=== PATIENT | male | born 1955 | race African-American/Black ===

== ENCOUNTER 2022-03-28 16:14 | Inpatient (IN) | payer MEDICAID ==
[2022-03-28] VITALS (7 sets, daily range): BP systolic 105–120; BP diastolic 57–75
[~2022-03-28] VITALS: Ht 167.6 cm; Wt 53.4 kg
--- NOTE | 2022-03-28 16:16 | PHYS DOC ---
Adult General [facility] HPI Patient is a 66 year old male who presents with weakness. Patient has end- stage renal disease and goes to dialysis on Monday and Fridays. He is referred to this ER today for evaluation of weakness. He had onset of bilateral lower extremity weakness after his last episode of dialysis on Monday, 3 days e arli. The left leg was worse than the right. He reports that he had been unable to walk normally. At baseline, can walk without assistive device in the rehab center where he is currently staying. Did not have chest pain or shortness of breath. No other complaints of weakness. No complaints of facial droop or slurred speech. No recent fever, chills, illness. Has not missed any dialysis. Review of Systems Review of Systems Constitutional: Denies fever or chills Eyes: Denies change in visual acuity, redness, or eye pain HENT: Denies nasal congestion or sore throat Respiratory: Denies cough or shortness of breath Cardiovascular: No additional information not addressed in HPI GI: Denies abdominal pain, nausea, vomiting, bloody stools or diarrhea : Denies dysuria or hematuria Musculoskeletal: Denies back pain or joint pain Integument: Denies rash or skin lesions Neurologic: as documented in HPI Endocrine: Denies polyuria All other systems were reviewed and found to be within normal limits, except as documented in this note. Allergies Allergies Allergies Coded Allergies Type Severity Reaction Last Updated Verified chlorpromazine Adverse Reaction Intermediate dizziness, n/v 03/28/22 Yes Physical Exam Physical Exam Constitutional: thin, chronically ill-appearing male in no acute distress, non- toxic appearance HENT: bilateral external ears normal, oropharynx moist, no oral exudates, nose normal Eyes: PERRLA, EOMI, conjunctiva normal, no discharge. Neck: Normal range of motion, no tenderness, supple, no JVD Cardiovascular:Heart rate regular rhythm Lungs & Thorax: Bilateral breath sounds clear to auscultation Abdomen: Bowel sounds normal, soft, no tenderness Skin: Warm, dry, no erythema, no rash Back: Normal ROM Extremities: No tenderness, no cyanosis, no clubbing, ROM intact, no edema, fistula in right upper ext with good bruit and thrill Neurologic: Alert and oriented X 3, normal motor function, normal sensory function, no focal deficits noted, 5/5 motor strength globally. He is very strong in the bilateral lower extremities bilaterally and the right is very subtly stronger compared to the left. Otherwise, normal neurologic examination. Psychologic: Affect normal, judgement normal, mood normal EKG EKG 16:25: NSR. Rate is 83. No STEMI Radiology/Procedures Radiology/Procedures Seen and examined on arrival to his room. Overall has normal neurologic examination. He does report however weakness on the left compared to the right which has affected his ability to ambulate over the last couple of days. His symptoms are subacute and have been present for 3 to 4 days. No other complaints today. Basic labs are ordered and CT scan of the head Course & Med Decision Making Course & Med Decision Making Pertinent Labs and Imaging studies reviewed. (See chart for details) [] Dragon Disclaimer Dragon Disclaimer This electronic medical record was generated, in whole or in part, using a voice recognition dictation system. LIAN LEON DO March 28, 2022 16:16
[2022-03-28 16:56] LABS: BASO # 0.1 x10^3/uL (0.0-0.2); BASO % 1 % (0-3); EOS % 1 % (0-3); HEMATOCRIT 32.9 % (39.0-53.0); HEMOGLOBIN 11.1 g/dL (13.0-17.5); LYMPH # 0.7 x10^3/uL (1.0-4.8); LYMPH % 8 % (24-48); MEAN CORPUSCULAR HEMOGLOBIN 29 pg (25-35); MEAN CORPUSCULAR HGB CONC 34 g/dL (31-37); MEAN CORPUSCULAR VOLUME 86 fL (79-100); MONO # 0.8 x10^3/uL (0.0-1.1); MONO % 8 % (0-9); NEUT % 83 % (31-73); PLATELET COUNT 250 x10^3/uL (140-400); RED BLOOD COUNT 3.81 x10^6/uL (4.30-5.70); RED CELL DISTRIBUTION WIDTH 13.2 % (11.5-14.5); WHITE BLOOD COUNT 9.6 x10^3/uL (4.0-11.0)
--- NOTE | 2022-03-28 17:13 | RAD ---
CT head without contrast: Reason for examination: Left-sided weakness. Helical images were obtained through the brain with no contrast administered. Reconstruction was perf ormed in sagittal and coronal planes. Exposure: One or more of the following individualized dose reduction techniques were utilized for thi s examination: 1. Automated exposure control 2. Adjustment of the mA and/or kV according to patient size 3. Use of iterative reconstruction technique. Ventricular systems are asymmetric at the right lateral ventricle appearing to be larger than the lef t. There is a shift of midline to the left of approximately 6 mm. There are bilateral subdural hematomas, acute on chronic, right greater than left with the right subd ural hematoma measuring 2.3 cm in greatest thickness and the left subdural hematoma measuring approxi mately 7.6 mm in greatest thickness. No acute infarcts, masses or intraparenchymal hemorrhage are evident. No abnormalities of seen at the orbits. The paranasal sinuses and mastoid air cells are clear. No acute abnormality seen in the skull. IMPRESSION: Acute on chronic subdural hematomas bilaterally with the right subdural hematoma measuring 2.3 cm in greatest thickness and the left subdural hematoma measuring 7.6 mm in greatest thickness. 6 mm shift of midline to the left. FOR INTERNAL CODING PURPOSES Critical result: Findings discussed with LIAN LEON DO at 03/28/2022 5:04 PM. RESULT CODE: (C) Electronically signed by: Yeimi Alcala MD (03/28/2022 5:10 PM) [facility]
[2022-03-28 17:15] LABS: CALCIUM 9.2 mg/dL (8.5-10.1); CREATININE 6.5 mg/dL (0.7-1.3); POTASSIUM 4.6 mmol/L (3.5-5.1)
[2022-03-28 17:20] LABS: MAGNESIUM 2.6 mg/dL (1.8-2.4); PHOSPHORUS 3.4 mg/dL (2.6-4.7)
[2022-03-28] MEDS ORDERED: levETIRAcetam 1,000mg PREMIX 100 ML IV ONE (17:30)
[2022-03-28 17:36] LABS: GFR 10.4
[2022-03-28] MEDS ORDERED: ONDANSETRON PF 4 MG/2 ML VIAL. IVP PRN (18:00)
[2022-03-28 18:51] LABS: PROTHROMBIN TIME PATIENT 13.5 SEC (11.7-14.0)
[2022-03-28] MEDS ORDERED: ALBU0.63 NEB (20:16)
[2022-03-28] MEDS ORDERED: OXYC5CAP PO (20:16)
[2022-03-28] MEDS ORDERED: IPRA4AER IH (20:16)
[2022-03-28] MEDS ORDERED: POLY17PO29 PO (20:16)
--- NOTE | 2022-03-28 20:32 | HP ---
DATE OF SERVICE: 03/28/2022 ADMIT DATE: 03/28/2022 CHIEF COMPLAINT: Weakness. HISTORY OF PRESENT ILLNESS: The patient is a pleasant 66-year-old male who presents to the ER with weakness. He is on dialysis Monday, Monday and Monday. He denies any recent history of falling. However, we did a CAT scan, it showing a subdural hematoma. I discussed the case with ER physician. We are going to admit the patient and consult Dr. Rizvi. PAST MEDICAL HISTORY: End-stage renal disease, on dialysis. ALLERGIES: CHLORPROMAZINE. FAMILY HISTORY: Diabetes. SOCIAL HISTORY: He does not drink, smoke or take drugs. He is retired. He is on disability. MEDICATIONS: Reviewed, please refer to the [facility]AD. REVIEW OF SYSTEMS: GENERAL: He complains of weakness. SKIN: No bruising, hair changes or rashes. EYES: No blurred, double or loss of vision. NOSE AND THROAT: No history of nosebleeds, hoarseness or sore throat. HEART: No history of palpitations, chest pain or shortness of breath on exertion. LUNGS: Denies cough, hemoptysis, wheezing or shortness of breath. GASTROINTESTINAL: Denies changes in appetite, nausea, vomiting, diarrhea or constipation. GENITOURINARY: No history of frequency, urgency, hesitancy or nocturia. NEUROLOGIC: He complains of weakness. PSYCHIATRIC: No history of panic, anxiety or depression. ENDOCRINE: No history of heat or cold intolerance, polyuria or polydipsia. EXTREMITIES: Denies muscle weakness, joint pain, pain on walking or stiffness. PHYSICAL EXAMINATION: VITALS: Within normal limits and are stable. GENERAL: No apparent distress. Alert and oriented. HEENT: Normal cephalic atraumatic, external auditory canals are patent. EYES: Extraocular muscles are intact, pupils are equally round and reactive to light and accommodation. MUSCULOSKELETAL: Well developed, well nourished, good range of motion. ENDOCRINE: No thyromegaly was palpated. LYMPHATICS: No cervical chain or axillary nodes were noted. HEMATOPOIETIC: No bruising. NECK: Supple, no JVD, no thyromegaly was noted. LUNGS: Clear to auscultation in all lung owusu without rhonchi or wheezing. HEART: RRR, S1, S2 present. Peripheral pulses intact, no obvious murmurs were noted. ABDOMEN: Soft, nontender. Positive bowel sounds no organomegaly, normal bowel sounds. EXTREMITIES: Without any cyanosis, clubbing, or edema. Pedal pulses intact, Homans sign is negative. NEUROLOGIC: Normal speech, normal tone. A and O x 3, moves all extremities, no obvious focal deficits. PSYCHIATRIC: Normal affect, normal mood. Stable. SKIN: No ulcerations or rashes, good skin turgor, no jaundice. VASCULAR: Good capillary refill, neurovascular bundle appears to be intact. IMAGING DATA: CT of the head shows a 2.3 cm subdural hematoma. LABORATORY DATA: His hemoglobin 11.1. ASSESSMENT AND PLAN: Subdural hematoma. The patient will be admitted to the ICU. N.p.o. after midnight. Consult Neurosurgery. Home meds. Deep venous thrombosis prophylaxis. Full code. YAKOV DR: Mariza TID: [id number]
[2022-03-29] VITALS (23 sets, daily range): BP systolic 100–131; BP diastolic 54–77
[2022-03-29 05:34] LABS: BASO % 1 % (0-3); EOS # 0.1 x10^3/uL (0.0-0.7); EOS % 1 % (0-3); HEMATOCRIT 30.5 % (39.0-53.0); HEMOGLOBIN 9.8 g/dL (13.0-17.5); LYMPH # 0.9 x10^3/uL (1.0-4.8); LYMPH % 10 % (24-48); MEAN CORPUSCULAR HEMOGLOBIN 28 pg (25-35); MEAN CORPUSCULAR HGB CONC 32 g/dL (31-37); MEAN CORPUSCULAR VOLUME 87 fL (79-100); MONO # 0.8 x10^3/uL (0.0-1.1); MONO % 8 % (0-9); NEUT # 7.4 x10^3/uL (1.8-7.7); NEUT % 80 % (31-73); PLATELET COUNT 246 x10^3/uL (140-400); RED BLOOD COUNT 3.53 x10^6/uL (4.30-5.70); RED CELL DISTRIBUTION WIDTH 13.4 % (11.5-14.5); WHITE BLOOD COUNT 9.2 x10^3/uL (4.0-11.0)
[2022-03-29 05:47] LABS: CALCIUM 9.3 mg/dL (8.5-10.1); CREATININE 8.2 mg/dL (0.7-1.3); GFR 7.9; POTASSIUM 4.7 mmol/L (3.5-5.1)
--- NOTE | 2022-03-29 08:47 | PDOC2 ---
NEUROLOGY CONSULT Date of Service DOS: DATE: 03/29/22 TIME: 08:42 Reason for Consult Reason for Consult: Subdural hematomas Referring Physician Referring Physician: Dr. Covarrubias Source Source: Chart review, Patient History of Present Illness History of Present Illness The patient is a 66-year-old right-handed male who came to the emergency department yesterday with bilateral weakness of the legs, worse on the left. He has been using a walker for a couple weeks. He has been in the longterm for over 20 years due to schizophrenia. He denies any head injuries, strokes, seizures, or recent falls. CT of the head shows bilateral subdural hematomas as reviewed below. Past Medical History Cardiovascular: HTN Pulmonary: Asthma Psych: Anxiety, Depression, Schizophrenia Renal/: Chronic renal failure (Dialysis) Past Surgical History Past Surgical History: No pertinent history Family History Family History: Cancer Social History Social History Single, disabled, longterm resident, smokes cigarettes, no alcohol or street drugs Current Medications Current Medications Current Medications Levetiracetam 100 ml @ 400 mls/hr 1X ONCE IV Last administered on 03/28/22at 17:47; Start 03/28/22 at 17:30; Stop 03/28/22 at 17:44; Status DC Ondansetron HCl (Zofran) 4 mg PRN Q8HRS PRN IVP NAUSEA/VOMITING; Start 03/28/22 at 18:00; Stop 03/29/22 at 17:59 Active Scripts Active Reported Oxycodone Hcl 5 Mg Capsule 5 Mg PO PRN Q6HRS PRN Miralax (Polyethylene Glycol 3350) 17 Gm Powd.pack 1 Packet PO DAILY 2 Days dissolve in water Combivent Respimat Inhal (Ipratropium/Albuterol Sulfate) 4 Gm Aer.w.adap 2 Inh IH QID Albuterol Sulfate Neb Soln (Albuterol Sulfate) 0.63 Mg/3 Ml Vial.neb 1 Vial NEB TID Allergies Allergies: Coded Allergies: chlorpromazine (Verified Adverse Reaction, Intermediate, dizziness, n/v, 03/28/22) ROS Review of System Negative for fever, chills, weight loss, chest pain, indigestion, hematochezia, melena, and dysuria. Positive for dyspnea occasionally. Full 14-point review of systems is negative. Physical Exam Physical Examination General: Well-developed, well-nourished black male in no acute distress HEENT: Normocephalic andatraumatic. Temporal arteriespulsatile and nontender. Neck: Supple without bruit, no meningismus Musculoskeletal: Stability:see neurologic. Gait exam:see neurologic. Tone:see neurologic.Strength:see neurologic. Neurological: Mental Status:intact, orientation, memory, attention span/concentration, language, fund of knowledge normal. Cranial Nerves:Pupils equal and reactive to light, extraocular movements areintact, visual owusu are full to confrontat ion. Facial sensation is normal. There is no facial asymmetry. Vestibulo-ocular reflex is intact. Palate elevates and tongue protrudes in midline. All other cranial related problems are negative except as mentioned before.Reflexes:0+ and symmetric with flexor plantar responses. Motor:4/5 arms, 3/5 legs, with normal tone and bulk. Coordination:Finger-nose finger and sgbe-xj-wyox testing are normal. Rapid alternating movements and fine finger movements are intact. Gait:Not tested. Sensory:Stocking loss. Vitals VITALS Vital Signs Date Time Temp Pulse Resp B/P (MAP) Pulse Ox O2 Delivery O2 Flow Rate FiO2 03/29/22 07:00 75 20 101/76 (84) 100 Nasal Cannula 3.0 03/29/22 04:00 99.4 99.4 Labs Labs Laboratory Tests Test 03/28/22 16:40 03/29/22 05:20 White Blood Count 9.6 x10^3/uL (4.0-11.0) 9.2 x10^3/uL (4.0-11.0) Red Blood Count 3.81 x10^6/uL (4.30-5.70) 3.53 x10^6/uL (4.30-5.70) Hemoglobin 11.1 g/dL (13.0-17.5) 9.8 g/dL (13.0-17.5) Hematocrit 32.9 % (39.0-53.0) 30.5 % (39.0-53.0) Mean Corpuscular Volume 86 fL (79-100) 87 fL (79-100) Mean Corpuscular Hemoglobin 29 pg (25-35) 28 pg (25-35) Mean Corpuscular Hemoglobin Concent 34 g/dL (31-37) 32 g/dL (31-37) Red Cell Distribution Width 13.2 % (11.5-14.5) 13.4 % (11.5-14.5) Platelet Count 250 x10^3/uL (140-400) 246 x10^3/uL (140-400) Neutrophils (%) (Auto) 83 % (31-73) 80 % (31-73) Lymphocytes (%) (Auto) 8 % (24-48) 10 % (24-48) Monocytes (%) (Auto) 8 % (0-9) 8 % (0-9) Eosinophils (%) (Auto) 1 % (0-3) 1 % (0-3) Basophils (%) (Auto) 1 % (0-3) 1 % (0-3) Neutrophils # (Auto) 8.0 x10^3/uL (1.8-7.7) 7.4 x10^3/uL (1.8-7.7) Lymphocytes # (Auto) 0.7 x10^3/uL (1.0-4.8) 0.9 x10^3/uL (1.0-4.8) Monocytes # (Auto) 0.8 x10^3/uL (0.0-1.1) 0.8 x10^3/uL (0.0-1.1) Eosinophils # (Auto) 0.0 x10^3/uL (0.0-0.7) 0.1 x10^3/uL (0.0-0.7) Basophils # (Auto) 0.1 x10^3/uL (0.0-0.2) 0.0 x10^3/uL (0.0-0.2) Prothrombin Time 13.5 SEC (11.7-14.0) Prothromb Time International Ratio 1.1 (0.8-1.1) Activated Partial Thromboplast Time 42 SEC (24-38) Sodium Level 137 mmol/L (136-145) 137 mmol/L (136-145) Potassium Level 4.6 mmol/L (3.5-5.1) 4.7 mmol/L (3.5-5.1) Chloride Level 90 mmol/L (98-107) 91 mmol/L (98-107) Carbon Dioxide Level 38 mmol/L (21-32) 38 mmol/L (21-32) Anion Gap 9 (6-14) 8 (6-14) Blood Urea Nitrogen 27 mg/dL (8-26) 33 mg/dL (8-26) Creatinine 6.5 mg/dL (0.7-1.3) 8.2 mg/dL (0.7-1.3) Estimated GFR (Cockcroft-Gault) 10.4 7.9 Glucose Level 91 mg/dL (70-99) 87 mg/dL (70-99) Calcium Level 9.2 mg/dL (8.5-10.1) 9.3 mg/dL (8.5-10.1) Phosphorus Level 3.4 mg/dL (2.6-4.7) Magnesium Level 2.6 mg/dL (1.8-2.4) Troponin I High Sensitivity 19 ng/L (4-75) Laboratory Tests Test 03/28/22 16:40 03/29/22 05:20 White Blood Count 9.6 x10^3/uL (4.0-11.0) 9.2 x10^3/uL (4.0-11.0) Red Blood Count 3.81 x10^6/uL (4.30-5.70) 3.53 x10^6/uL (4.30-5.70) Hemoglobin 11.1 g/dL (13.0-17.5) 9.8 g/dL (13.0-17.5) Hematocrit 32.9 % (39.0-53.0) 30.5 % (39.0-53.0) Mean Corpuscular Volume 86 fL (79-100) 87 fL (79-100) Mean Corpuscular Hemoglobin 29 pg (25-35) 28 pg (25-35) Mean Corpuscular Hemoglobin Concent 34 g/dL (31-37) 32 g/dL (31-37) Red Cell Distribution Width 13.2 % (11.5-14.5) 13.4 % (11.5-14.5) Platelet Count 250 x10^3/uL (140-400) 246 x10^3/uL (140-400) Neutrophils (%) (Auto) 83 % (31-73) 80 % (31-73) Lymphocytes (%) (Auto) 8 % (24-48) 10 % (24-48) Monocytes (%) (Auto) 8 % (0-9) 8 % (0-9) Eosinophils (%) (Auto) 1 % (0-3) 1 % (0-3) Basophils (%) (Auto) 1 % (0-3) 1 % (0-3) Neutrophils # (Auto) 8.0 x10^3/uL (1.8-7.7) 7.4 x10^3/uL (1.8-7.7) Lymphocytes # (Auto) 0.7 x10^3/uL (1.0-4.8) 0.9 x10^3/uL (1.0-4.8) Monocytes # (Auto) 0.8 x10^3/uL (0.0-1.1) 0.8 x10^3/uL (0.0-1.1) Eosinophils # (Auto) 0.0 x10^3/uL (0.0-0.7) 0.1 x10^3/uL (0.0-0.7) Basophils # (Auto) 0.1 x10^3/uL (0.0-0.2) 0.0 x10^3/uL (0.0-0.2) Prothrombin Time 13.5 SEC (11.7-14.0) Prothromb Time International Ratio 1.1 (0.8-1.1) Activated Partial Thromboplast Time 42 SEC (24-38) Sodium Level 137 mmol/L (136-145) 137 mmol/L (136-145) Potassium Level 4.6 mmol/L (3.5-5.1) 4.7 mmol/L (3.5-5.1) Chloride Level 90 mmol/L (98-107) 91 mmol/L (98-107) Carbon Dioxide Level 38 mmol/L (21-32) 38 mmol/L (21-32) Anion Gap 9 (6-14) 8 (6-14) Blood Urea Nitrogen 27 mg/dL (8-26) 33 mg/dL (8-26) Creatinine 6.5 mg/dL (0.7-1.3) 8.2 mg/dL (0.7-1.3) Estimated GFR (Cockcroft-Gault) 10.4 7.9 Glucose Level 91 mg/dL (70-99) 87 mg/dL (70-99) Calcium Level 9.2 mg/dL (8.5-10.1) 9.3 mg/dL (8.5-10.1) Phosphorus Level 3.4 mg/dL (2.6-4.7) Magnesium Level 2.6 mg/dL (1.8-2.4) Troponin I High Sensitivity 19 ng/L (4-75) Images Images CT head without contrast: Reason for examination: Left-sided weakness. Helical images were obtained through the brain with no contrast administered. Reconstruction was performed in sagittal and coronal planes. Exposure: One or more of the following individualized dose reduction techniques were utilized for this examination: 1. Automated exposure control 2. Adjustment of the mA and/or kV according to patient size 3. Use of iterative reconstruction technique. Ventricular systems are asymmetric at the right lateral ventricle appearing to be larger than the left. There is a shift of midline to the left of approximately 6 mm. There are bilateral subdural hematomas, acute on chronic, right greater than left with the right subdural hematoma measuring 2.3 cm in greatest thickness and the left subdural hematoma measuring approximately 7.6 mm in greatest thickness. No acute infarcts, masses or intraparenchymal hemorrhage are evident. No abnormalities of seen at the orbits. The paranasal sinuses and mastoid air cells are clear. No acute abnormality seen in the skull. IMPRESSION: Acute on chronic subdural hematomas bilaterally with the right subdural hematoma measuring 2.3 cm in greatest thickness and the left subdural hematoma measuring 7.6 mm in greatest thickness. 6 mm shift of midline to the left. Assessment/Plan Assessment/Plan Impression: Bilateral subdural hematomas, chronic and acute, no obvious trauma, patient is not on anticoagulation. Exam points to peripheral neuropathy, need to rule out diabetes, connective tissue disease, thyroid abnormalities, vitamin deficiencies, dysproteinemias. Recommendations: Repeat head CT Does not need prophylactic anticonvulsants Rehabilitation modalities Laboratory studies for various causes of neuropathy Okay to move to floor if head CT is negative Neurosurgery is also on the case. Thank you for letting me help with the patient's care. PRIYANK FONTENOT MD March 29, 2022 08:47
--- NOTE | 2022-03-29 11:00 | PDOC ---
[facility] PROGRESS NOTE Date of Service DOS: DATE: 03/29/22 TIME: 10:59 Chief Complaint Chief Complaint Subdural hematoma ESRD on dialysis Asthma Arthritis History of Present Illness History of Present Illness 03/29/2022 Patient seen and examined in the ICU He is eating breakfast Discussed with case management Discussed with RN Chart reviewed Awaiting further neurosurgical input Vitals/I&O Vitals/I&O: Vital Signs Date Time Temp Pulse Resp B/P (MAP) Pulse Ox O2 Delivery O2 Flow Rate FiO2 03/29/22 10:00 74 18 101/64 (76) 99 Nasal Cannula 3.0 03/29/22 08:00 98.7 98.7 I & O 03/28/22 03/28/22 03/29/22 15:00 23:00 07:00 Intake Total 350 ml Output Total 0 ml 0 ml Balance 350 ml 0 ml Physical Exam General: Alert Heart: Regular rate Lungs: Clear Abdomen: Normal bowel sounds Extremities: No clubbing Skin: No rashes Labs Labs: Laboratory Tests Test 03/28/22 16:40 03/29/22 05:20 03/29/22 05:54 White Blood Count 9.6 x10^3/uL (4.0-11.0) 9.2 x10^3/uL (4.0-11.0) Red Blood Count 3.81 x10^6/uL (4.30-5.70) 3.53 x10^6/uL (4.30-5.70) Hemoglobin 11.1 g/dL (13.0-17.5) 9.8 g/dL (13.0-17.5) Hematocrit 32.9 % (39.0-53.0) 30.5 % (39.0-53.0) Mean Corpuscular Volume 86 fL (79-100) 87 fL (79-100) Mean Corpuscular Hemoglobin 29 pg (25-35) 28 pg (25-35) Mean Corpuscular Hemoglobin Concent 34 g/dL (31-37) 32 g/dL (31-37) Red Cell Distribution Width 13.2 % (11.5-14.5) 13.4 % (11.5-14.5) Platelet Count 250 x10^3/uL (140-400) 246 x10^3/uL (140-400) Neutrophils (%) (Auto) 83 % (31-73) 80 % (31-73) Lymphocytes (%) (Auto) 8 % (24-48) 10 % (24-48) Monocytes (%) (Auto) 8 % (0-9) 8 % (0-9) Eosinophils (%) (Auto) 1 % (0-3) 1 % (0-3) Basophils (%) (Auto) 1 % (0-3) 1 % (0-3) Neutrophils # (Auto) 8.0 x10^3/uL (1.8-7.7) 7.4 x10^3/uL (1.8-7.7) Lymphocytes # (Auto) 0.7 x10^3/uL (1.0-4.8) 0.9 x10^3/uL (1.0-4.8) Monocytes # (Auto) 0.8 x10^3/uL (0.0-1.1) 0.8 x10^3/uL (0.0-1.1) Eosinophils # (Auto) 0.0 x10^3/uL (0.0-0.7) 0.1 x10^3/uL (0.0-0.7) Basophils # (Auto) 0.1 x10^3/uL (0.0-0.2) 0.0 x10^3/uL (0.0-0.2) Prothrombin Time 13.5 SEC (11.7-14.0) Prothromb Time International Ratio 1.1 (0.8-1.1) Activated Partial Thromboplast Time 42 SEC (24-38) Sodium Level 137 mmol/L (136-145) 137 mmol/L (136-145) Potassium Level 4.6 mmol/L (3.5-5.1) 4.7 mmol/L (3.5-5.1) Chloride Level 90 mmol/L (98-107) 91 mmol/L (98-107) Carbon Dioxide Level 38 mmol/L (21-32) 38 mmol/L (21-32) Anion Gap 9 (6-14) 8 (6-14) Blood Urea Nitrogen 27 mg/dL (8-26) 33 mg/dL (8-26) Creatinine 6.5 mg/dL (0.7-1.3) 8.2 mg/dL (0.7-1.3) Estimated GFR (Cockcroft-Gault) 10.4 7.9 Glucose Level 91 mg/dL (70-99) 87 mg/dL (70-99) Calcium Level 9.2 mg/dL (8.5-10.1) 9.3 mg/dL (8.5-10.1) Phosphorus Level 3.4 mg/dL (2.6-4.7) Magnesium Level 2.6 mg/dL (1.8-2.4) Troponin I High Sensitivity 19 ng/L (4-75) Vitamin B12 Level 794 pg/mL (247-911) Thyroid Stimulating Hormone (TSH) 0.882 uIU/mL (0.358-3.74) Erythrocyte Sedimentation Rate 75 (0-15) Assessment and Plan Assessmemt and Plan Problems Medical Problems: (1) Subdural hematoma Status: Acute Subdural hematoma ESRD on dialysis Asthma Arthritis Plan ICU monitoring Await further neurosurgical input Trend labs Home meds DVT prophylaxis Full code PT OT Comment Review of Relevant I have reviewed the following items arcelia (where applicable) has been applied. Medications: Current Medications Medications (Trade) Dose Ordered Sig/Cherelle Route PRN Reason Start Time Stop Time Status Last Admin Dose Admin Levetiracetam 100 ml @ 400 mls/hr 1X ONCE IV 03/28/22 17:30 03/28/22 17:44 DC 03/28/22 17:47 Justifications for Admission Other Justification ARIEL BARRERA III DO March 29, 2022 11:00
--- NOTE | 2022-03-29 12:02 | PDOC ---
Provider Note Date of Service: DATE: 03/29/22 TIME: 12:01 Provider Note Patient seen and examined, family at bedside The patient is a 66-year-old right-handed male who came to the emergency department yesterday with bilateral weakness of the legs, worse on the left. He has been using a walker for a couple weeks. He has been in the senior care for over 20 years due to schizophrenia. He denies any head injuries, strokes, seizures, or recent falls. CT of the head shows bilateral subdural hematomas. PMH: HTN, Asthma, Anxiety, Depression, Schizophrenia, Chronic renal failure (Di alysis) Exam: Mental Status:Alert and oriented x 3, Pupils equal and reactive to light, extraocular movements areintact, visual owusu are full to confrontation. Facial sensation is normal. There is no facial asymmetry. All other cranial related problems are negative except as mentioned before. Strength 4/5 arms, 3/5 legs, with normal tone and bulk. Coordination:Finger-nose finger and oxjk-sr-qiwl testing are normal. Rapid alternating movements and fine finger movements are intact. Gait:Not tested. Sensory:Stocking loss. CT head with Acute on chronic subdural hematomas bilaterally with the right subdural hematoma measuring 2.3 cm in greatest thickness and the left subdural hematoma measuring 7.6 mm in greatest thickness.6 mm shift of midline to the lef t. Plan for evacuation of [facility] right tomorrow 1130 SCDs D/W RN Justifications for Admission Other Justification RAFAEL MAHONEY MD March 29, 2022 12:02
--- NOTE | 2022-03-29 16:32 | RAD ---
Exam: CT head INDICATION: Subdural hemorrhage TECHNIQUE: Sequential axial images through the head were obtained without the administration of IV co ntrast. Exposure: One or more of the following in the visualized dose reduction techniques were utilized for this examination: 1. Automated exposure control 2. Adjustment of the MA and/or KV according to patient size 3. Use of iterative of reconstructive technique Comparisons: 03/28/2022 FINDINGS: Bilateral subdural hematomas are again seen which have a similar size of induration compared to the p rior study. Hemorrhage is larger on the right measuring approximately 1.8 cm in thickness and measure s approximately 1.3 cm in thickness on the left. There is underlying sulcal effacement similar to stuart or study. There is persistent midline shift to the left measuring approximately 7 mm. Mild patchy hypodensity in the periventricular white matter, similar prior study. No acute vascular t erritory infarction is identified. Frost-white distinction is preserved. Stable appearance of the ventricular system. The basal cisterns are well maintained. The visualized portions of the paranasal sinuses and mastoid air cells are well-pneumatized. No acute fractures. IMPRESSION: Stable appearance of bilateral subdural hematomas with underlying mass effect as described above. Electronically signed by: Kiran Alfaro MD (03/29/2022 4:29 PM) [facility]
--- NOTE | 2022-03-29 19:09 | EKG ---
[address] [place] [address] Test Date: 2022-03-28 Test Time: 16:22:25 Pat Name: SIA MONCADA Department: Room: [facility] 1 Gender: M Rn Cardiac: : 1955 Requested By: LIAN LEON Order Number: [id number] Reading MD: Kevin Mcintyre MD Measurements Intervals [place] Rate: 83 P: 69 RI: 152 QRS: -69 QRSD: 86 T: 49 QT: 372 QTc: 438 Interpretive Statements SINUS RHYTHM LAD Electronically Signed On 04-04-2022 9:30:55 CDT by Kevin Mcintyre MD
[2022-03-29] MEDS ORDERED: ACETAMINOPHEN 325 MG TABLET. PO PRN (19:30)
--- NOTE | 2022-03-29 21:07 | NUR ---
notified and orders received for increased temp.
[2022-03-30] VITALS (21 sets, daily range): BP systolic 88–129; BP diastolic 44–72
[2022-03-30 01:27] LABS: HEMOGLOBIN A1C 5.1 % (4.8-5.6)
[2022-03-30] MEDS ORDERED: ceFAZolin SODIUM 1 GM in IV NORMAL SALINE 1000ML BAG 1,000 ML IRR ONE (06:00)
[2022-03-30] MEDS ORDERED: HYDROmorphone 2 MG/ML INJ. IVP PRN (06:00)
[2022-03-30] MEDS ORDERED: MORPHINE SULFATE 2 MG/ML INJ. IVP PRN (06:00)
[2022-03-30] MEDS ORDERED: fentaNYL PF VIAL 100 MCG/2 ML VIAL IVP PRN (06:00)
[2022-03-30] MEDS ORDERED: PROCHLORPERAZINE 10 MG/2 ML VIAL. IVP PRN (06:00)
[2022-03-30] MEDS ORDERED: IV RINGERS,LACTATED 1000ML 1,000 ML IV SCH (06:00)
[2022-03-30] MEDS ORDERED: BUPIVACAINE-EPI 0.5% 30 ML VIAL KIT. ONE (07:41)
[2022-03-30] MEDS ORDERED: GELATIN SPONGE SIZE 100. ONE (07:41)
[2022-03-30] MEDS ORDERED: SURGICEL HEMOSTAT 4X8 EACH. ONE (07:41)
[2022-03-30] MEDS ORDERED: THROMBIN TOPICAL 20,000 UNIT SPRAY.SYRN KIT TP ONE ×2 (07:42→12:49)
[2022-03-30] MEDS ORDERED: cefTRIAXone IV Push 1 GM VIAL. IVP SCH (08:00)
--- NOTE | 2022-03-30 08:22 | PDOC ---
PROGRESS NOTES Date of Service DATE: 03/30/22 TIME: 08:19 Assessment Problems Medical Problems: (1) Subdural hematoma Status: Acute Fever last night, sedimentation rate 75 Bilateral subdural hematomas, chronic and acute, no obvious trauma, patient is not on anticoagulation. Stable on second head CT 03/29 Exam points to peripheral neuropathy, need to rule out diabetes, connective tissue disease, thyroid abnormalities, vitamin deficiencies, dysproteinemias. All labs except the sedimentation rate are normal so far Plan I ordered a chest x-ray and urinalysis Does not need prophylactic anticonvulsants Rehabilitation modalities Await rest of laboratory studies for various causes of neuropathy Neurosurgery plans for subdural evacuation Subjective No complaints Objective Vital Signs Date Time Temp Pulse Resp B/P (MAP) Pulse Ox O2 Delivery O2 Flow Rate FiO2 03/30/22 08:00 98.9 79 24 110/61 (77) 97 Nasal Cannula 3.0 98.9 Intake and Output 03/30/22 07:00 Intake Total 1050 ml Output Total 0 ml Balance 1050 ml Intake Oral 1050 ml Output Urine Total 0 ml PHYSICAL EXAM Alert. Oriented to time, place and person. PERRL. EOMI. CN: no focal findings. Muscle tone: normal. Muscle strength: 4/5 arms, 4/5 right leg, 3/5 left leg DTR: 0+ Plantar reflex: Flexor Gait: not examined in bed. Sensory exam: Stocking loss. No cerebellar signs elicited. Review of Relevant I have reviewed the following items arcelia (where applicable) has been applied. Labs Laboratory Tests Test 03/28/22 16:40 03/29/22 05:20 03/29/22 05:54 03/29/22 12:20 White Blood Count 9.6 x10^3/uL (4.0-11.0) 9.2 x10^3/uL (4.0-11.0) Red Blood Count 3.81 x10^6/uL (4.30-5.70) 3.53 x10^6/uL (4.30-5.70) Hemoglobin 11.1 g/dL (13.0-17.5) 9.8 g/dL (13.0-17.5) Hematocrit 32.9 % (39.0-53.0) 30.5 % (39.0-53.0) Mean Corpuscular Volume 86 fL (79-100) 87 fL (79-100) Mean Corpuscular Hemoglobin 29 pg (25-35) 28 pg (25-35) Mean Corpuscular Hemoglobin Concent 34 g/dL (31-37) 32 g/dL (31-37) Red Cell Distribution Width 13.2 % (11.5-14.5) 13.4 % (11.5-14.5) Platelet Count 250 x10^3/uL (140-400) 246 x10^3/uL (140-400) Neutrophils (%) (Auto) 83 % (31-73) 80 % (31-73) Lymphocytes (%) (Auto) 8 % (24-48) 10 % (24-48) Monocytes (%) (Auto) 8 % (0-9) 8 % (0-9) Eosinophils (%) (Auto) 1 % (0-3) 1 % (0-3) Basophils (%) (Auto) 1 % (0-3) 1 % (0-3) Neutrophils # (Auto) 8.0 x10^3/uL (1.8-7.7) 7.4 x10^3/uL (1.8-7.7) Lymphocytes # (Auto) 0.7 x10^3/uL (1.0-4.8) 0.9 x10^3/uL (1.0-4.8) Monocytes # (Auto) 0.8 x10^3/uL (0.0-1.1) 0.8 x10^3/uL (0.0-1.1) Eosinophils # (Auto) 0.0 x10^3/uL (0.0-0.7) 0.1 x10^3/uL (0.0-0.7) Basophils # (Auto) 0.1 x10^3/uL (0.0-0.2) 0.0 x10^3/uL (0.0-0.2) Prothrombin Time 13.5 SEC (11.7-14.0) Prothromb Time International Ratio 1.1 (0.8-1.1) Activated Partial Thromboplast Time 42 SEC (24-38) Sodium Level 137 mmol/L (136-145) 137 mmol/L (136-145) Potassium Level 4.6 mmol/L (3.5-5.1) 4.7 mmol/L (3.5-5.1) Chloride Level 90 mmol/L (98-107) 91 mmol/L (98-107) Carbon Dioxide Level 38 mmol/L (21-32) 38 mmol/L (21-32) Anion Gap 9 (6-14) 8 (6-14) Blood Urea Nitrogen 27 mg/dL (8-26) 33 mg/dL (8-26) Creatinine 6.5 mg/dL (0.7-1.3) 8.2 mg/dL (0.7-1.3) Estimated GFR (Cockcroft-Gault) 10.4 7.9 Glucose Level 91 mg/dL (70-99) 87 mg/dL (70-99) Calcium Level 9.2 mg/dL (8.5-10.1) 9.3 mg/dL (8.5-10.1) Phosphorus Level 3.4 mg/dL (2.6-4.7) Magnesium Level 2.6 mg/dL (1.8-2.4) Troponin I High Sensitivity 19 ng/L (4-75) Vitamin B12 Level 794 pg/mL (247-911) Thyroid Stimulating Hormone (TSH) 0.882 uIU/mL (0.358-3.74) Erythrocyte Sedimentation Rate 75 (0-15) Hemoglobin A1c 5.1 % (4.8-5.6) Coronavirus (COVID-19)(PCR) Not detected (NOT DETECTD) SARS-CoV-2 Antigen (Rapid) Negative (NEGATIVE) Laboratory Tests Test 03/29/22 12:20 Coronavirus (COVID-19)(PCR) Not detected (NOT DETECTD) SARS-CoV-2 Antigen (Rapid) Negative (NEGATIVE) Medications Current Medications Levetiracetam 100 ml @ 400 mls/hr 1X ONCE IV Last administered on 03/28/22at 17:47; Start 03/28/22 at 17:30; Stop 03/28/22 at 17:44; Status DC Ondansetron HCl (Zofran) 4 mg PRN Q8HRS PRN IVP NAUSEA/VOMITING; Start 03/28/22 at 18:00; Stop 03/29/22 at 17:59; Status DC Cefazolin Sodium 1 gm/Sodium Chloride 1,000 ml @ 1,000 mls/hr 1X ONCE IRR ; Start 03/30/22 at 06:00; Stop 03/30/22 at 06:59; Status DC Fentanyl Citrate (Fentanyl 2ml Vial) 25 mcg PRN Q5MIN PRN IVP MILD PAIN 1-3; Start 03/30/22 at 06:00; Stop 03/31/22 at 05:59 Fentanyl Citrate (Fentanyl 2ml Vial) 50 mcg PRN Q5MIN PRN IVP MODERATE PAIN 4- 6; Start 03/30/22 at 06:00; Stop 03/31/22 at 05:59 Morphine Sulfate (Morphine Sulfate) 1 mg PRN Q10MIN PRN IVP SEVERE PAIN 7-10; Start 03/30/22 at 06:00; Stop 03/31/22 at 05:59 Ringer's Solution 1,000 ml @ 30 mls/hr Q24H IV ; Start 03/30/22 at 06:00; Stop 03/30/22 at 17:59 Hydromorphone HCl (Dilaudid) 0.5 mg PRN Q10MIN PRN IVP SEVERE PAIN 7-10, 2nd CHOICE; Start 03/30/22 at 06:00; Stop 03/31/22 at 05:59 Prochlorperazine Edisylate (Compazine) 5 mg PACU PRN PRN IVP NAUSEA, MRX1; Start 03/30/22 at 06:00; Stop 03/31/22 at 05:59 Acetaminophen (Tylenol) 650 mg PRN Q6HRS PRN PO MILD PAIN / TEMP > 100.3'F Last administered on 03/29/22at 19:54; Start 03/29/22 at 19:30 Ceftriaxone Sodium (Rocephin) 1 gm Q24H IVP ; Start 03/30/22 at 08:00 Active Scripts Active Reported Oxycodone Hcl 5 Mg Capsule 5 Mg PO PRN Q6HRS PRN Miralax (Polyethylene Glycol 3350) 17 Gm Powd.pack 1 Packet PO DAILY 2 Days dissolve in water Combivent Respimat Inhal (Ipratropium/Albuterol Sulfate) 4 Gm Aer.w.adap 2 Inh IH QID Albuterol Sulfate Neb Soln (Albuterol Sulfate) 0.63 Mg/3 Ml Vial.neb 1 Vial NEB TID Vitals/I & O Vital Sign - Last 24 Hours 03/29/22 03/29/22 03/29/22 03/29/22 09:00 10:00 11:00 12:00 Temp 98.8 98.8 Pulse 68 74 74 78 Resp B/P (MAP) 101/54 (70) 101/64 (76) 102/56 (71) 110/63 (79) Pulse Ox 100 99 100 96 O2 Delivery Nasal Cannula Nasal Cannula Nasal Cannula Nasal Cannula O2 Flow Rate 3.0 3.0 3.0 3.0 03/29/22 03/29/22 03/29/22 03/29/22 12:00 13:00 15:00 16:00 Temp 98.9 98.9 Pulse 82 80 80 Resp B/P (MAP) 109/60 (76) 101/63 (76) 113/59 (77) Pulse Ox 96 96 96 O2 Delivery Nasal Cannula Nasal Cannula Nasal Cannula Nasal Cannula O2 Flow Rate 3.0 3.0 3.0 3.0 03/29/22 03/29/22 03/29/22 03/29/22 16:00 17:00 18:00 19:00 Temp 101.0 101.0 Pulse 88 82 90 Resp B/P (MAP) 123/65 (84) 113/62 (79) 114/65 (81) Pulse Ox 92 97 97 O2 Delivery Nasal Cannula Nasal Cannula Nasal Cannula Nasal Cannula O2 Flow Rate 3.0 3.0 3.0 3.0 03/29/22 03/29/22 03/29/22 03/29/22 19:00 20:00 20:00 21:00 Temp 101.0 101.0 Pulse 82 89 89 Resp B/P (MAP) 113/64 (80) 107/60 (76) 107/60 (76) Pulse Ox 97 97 97 O2 Delivery Nasal Cannula Nasal Cannula Nasal Cannula Nasal Cannula O2 Flow Rate 3.0 3.0 3.0 3.0 03/29/22 03/29/22 03/30/22 03/30/22 22:00 23:00 00:00 00:00 Temp 99.5 99.0 99.5 99.0 Pulse 76 87 85 Resp B/P (MAP) 102/58 (73) 100/58 (72) 109/62 (78) Pulse Ox 97 98 98 O2 Delivery Nasal Cannula Nasal Cannula Nasal Cannula Nasal Cannula O2 Flow Rate 3.0 3.0 3.0 3.0 03/30/22 03/30/22 03/30/22 03/30/22 01:00 02:00 03:00 04:00 Pulse 83 82 82 Resp 25 27 27 B/P (MAP) 117/72 (87) 116/62 (80) 126/70 (88) Pulse Ox 98 97 96 O2 Delivery Nasal Cannula Nasal Cannula Nasal Cannula Nasal Cannula O2 Flow Rate 3.0 3.0 3.0 3.0 03/30/22 03/30/22 03/30/22 03/30/22 04:00 05:00 06:00 07:00 Temp 99.2 99.2 Pulse 72 78 80 87 Resp 22 20 20 24 B/P (MAP) 100/58 (72) 106/62 (77) 102/58 (73) 88/58 (68) Pulse Ox 99 97 98 96 O2 Delivery Nasal Cannula Nasal Cannula Nasal Cannula Nasal Cannula O2 Flow Rate 3.0 3.0 3.0 3.0 03/30/22 03/30/22 08:00 08:00 Temp 98.9 98.9 Pulse 79 Resp 24 B/P (MAP) 110/61 (77) Pulse Ox 97 O2 Delivery Nasal Cannula Nasal Cannula O2 Flow Rate 3.0 3.0 Intake and Output 03/29/22 03/29/22 03/30/22 15:00 23:00 07:00 Intake Total 300 ml 750 ml 0 ml Output Total 0 ml 0 ml Balance 300 ml 750 ml [address] head INDICATION: Subdural hemorrhage TECHNIQUE: Sequential axial images through the head were obtained without the administration of IV contrast. Exposure: One or more of the following in the visualized dose reduction techniques were utilized for this examination: 1. Automated exposure control 2. Adjustment of the MA and/or KV according to patient size 3. Use of iterative of reconstructive technique Comparisons: 03/28/2022 FINDINGS: Bilateral subdural hematomas are again seen which have a similar size of induration compared to the prior study. Hemorrhage is larger on the right measuring approximately 1.8 cm in thickness and measures approximately 1.3 cm in thickness on the left. There is underlying sulcal effacement similar to prior study. There is persistent midline shift to the left measuring approximately 7 mm. Mild patchy hypodensity in the periventricular white matter, similar prior study . No acute vascular territory infarction is identified. Frost-white distinction is preserved. Stable appearance of the ventricular system. The basal cisterns are well maintained. The visualized portions of the paranasal sinuses and mastoid air cells are well- pneumatized. No acute fractures. IMPRESSION: Stable appearance of bilateral subdural hematomas with underlying mass effect as described above. Justicifation of Admission Dx: Justifications for Admission: Justification of Admission Dx: N/A PRIYANK FONTENOT MD March 30, 2022 08:22
--- NOTE | 2022-03-30 08:37 | PDOC ---
[facility] PROGRESS NOTE Date of Service DOS: DATE: 03/30/22 TIME: 08:35 Chief Complaint Chief Complaint Subdural hematoma ESRD on dialysis Asthma Arthritis History of Present Illness History of Present Illness 03/30/2022 Patient seen and examined in the ICU Discussed with RN He is scheduled to go to surgery today for craniotomy and for hematoma evacuation He had a low-grade temp of 101 I called the pharmacy and started empiric Rocephin Currently having some PVCs on the monitor Blood pressure a little low at 88/58 Chart reviewed 03/29/2022 Patient seen and examined in the ICU He is eating breakfast Discussed with case management Discussed with RN Chart reviewed Awaiting further neurosurgical input Vitals/I&O Vitals/I&O: Vital Signs Date Time Temp Pulse Resp B/P (MAP) Pulse Ox O2 Delivery O2 Flow Rate FiO2 03/30/22 08:00 98.9 79 24 110/61 (77) 97 Nasal Cannula 3.0 98.9 I & O 03/29/22 03/29/22 03/30/22 15:00 23:00 07:00 Intake Total 300 ml 750 ml 0 ml Output Total 0 ml 0 ml Balance 300 ml 750 ml 0 ml Physical Exam General: Alert Heart: Regular rate Lungs: Clear Abdomen: Normal bowel sounds Extremities: No clubbing Skin: No rashes Labs Labs: Laboratory Tests Test 03/29/22 12:20 Coronavirus (COVID-19)(PCR) Not detected (NOT DETECTD) SARS-CoV-2 Antigen (Rapid) Negative (NEGATIVE) Assessment and Plan Assessmemt and Plan Problems Medical Problems: (1) Subdural hematoma Status: Acute Subdural hematoma Fevers Hypotension Weakness ESRD on dialysis Asthma Arthritis Plan He is scheduled to go to surgery later today I ordered empiric IV Rocephin for his fever We will consult infectious disease for second opinion on the fever ICU monitoring Dialysis per nephrology Trend labs Home meds DVT prophylaxis Full code Appreciate nephrology and neurology input CC time 31-minute Comment Review of Relevant I have reviewed the following items arcelia (where applicable) has been applied. Medications: Current Medications Medications (Trade) Dose Ordered Sig/Cherelle Route PRN Reason Start Time Stop Time Status Last Admin Dose Admin Acetaminophen (Tylenol) 650 mg PRN Q6HRS PRN PO MILD PAIN / TEMP > 100.3'F 03/29/22 19:30 03/29/22 19:54 Justifications for Admission Other Justification ARIEL BARRERA III DO March 30, 2022 08:37
[2022-03-30] MEDS ORDERED: PROPOFOL 10 MG/ML (20ML) VIAL. IV ONE (08:48)
[2022-03-30] MEDS ORDERED: ROCURONIUM 50 MG/5 ML VIAL. ONE ×2 (08:48→10:57)
[2022-03-30] MEDS ORDERED: NEOSTIGMINE METHYLSULFATE 5 MG/5 ML SYRINGE. ONE (08:48)
[2022-03-30] MEDS ORDERED: SEVOFLURANE 61 TO 120 MINUTES. IH ONE (08:48)
[2022-03-30] MEDS ORDERED: GLYCOPYRROLATE 1 MG/5 ML VIAL. ONE (08:48)
[2022-03-30] MEDS ORDERED: ONDANSETRON PF 4 MG/2 ML VIAL. ONE (08:48)
[2022-03-30] MEDS ORDERED: LIDOCAINE 2% PF 5 ML VIAL. ONE (08:48)
[2022-03-30] MEDS ORDERED: fentaNYL PF VIAL 100 MCG/2 ML VIAL ONE ×3 (08:48→14:51)
[2022-03-30] MEDS ORDERED: DEXAMETHASONE SOD PHOS 4 MG/ML VIAL ONE (08:48)
[2022-03-30] MEDS ORDERED: PHENYLEPHRINE 10 MG/ML VIAL. ONE (08:54)
--- NOTE | 2022-03-30 08:58 | PDOC2 ---
CONSULT Date of Consult Date of Consult DATE: 03/30/22 TIME: 08:54 Reason for Consult Reason for Consult: ESRD Identification/Chief Complaint Chief Complaint Currently no complaints Source Source: Chart review History of Present Illness Reason for Visit: Patient is a 66 year old AA male who presents with weakness. He had onset of b ilateral lower extremity weakness after his last episode of dialysis on Monday of last week . The left leg was worse than the right. He reports that he had been unable to walk normally. At baseline, can walk without assistive device in the rehab center where he is currently staying. Did not have chest pain or shortness of breath. No other complaints of weakness. No complaints of facial droop or slurred speech. No recent fever, chills, illness. He has been on dialysis for 7 years @ [facility], didnt miss any treatments, last dialysis was on Monday . States makes small amount of Urine. No urinary complaints . Denies any Vol Overload, No significant Interdialytic weight gain per patient He is not sure if he is scheduled for craniotomy today, states he had fever last night . Per RN scheduled for Craniotomy at 11: 30 am today Past Medical History Cardiovascular: HTN Pulmonary: Asthma Psych: Anxiety, Depression, Schizophrenia Renal/: Chronic renal failure (Dialysis) Past Surgical History Past Surgical History: No pertinent history Current Problem List Problem List Problems Medical Problems: (1) Subdural hematoma Status: Acute Current Medications Current Medications Current Medications Levetiracetam 100 ml @ 400 mls/hr 1X ONCE IV Last administered on 03/28/22at 17:47; Start 03/28/22 at 17:30; Stop 03/28/22 at 17:44; Status DC Ondansetron HCl (Zofran) 4 mg PRN Q8HRS PRN IVP NAUSEA/VOMITING; Start 03/28/22 at 18:00; Stop 03/29/22 at 17:59; Status DC Cefazolin Sodium 1 gm/Sodium Chloride 1,000 ml @ 1,000 mls/hr 1X ONCE IRR ; Start 03/30/22 at 06:00; Stop 03/30/22 at 06:59; Status DC Fentanyl Citrate (Fentanyl 2ml Vial) 25 mcg PRN Q5MIN PRN IVP MILD PAIN 1-3; Start 03/30/22 at 06:00; Stop 03/31/22 at 05:59 Fentanyl Citrate (Fentanyl 2ml Vial) 50 mcg PRN Q5MIN PRN IVP MODERATE PAIN 4- 6; Start 03/30/22 at 06:00; Stop 03/31/22 at 05:59 Morphine Sulfate (Morphine Sulfate) 1 mg PRN Q10MIN PRN IVP SEVERE PAIN 7-10; Start 03/30/22 at 06:00; Stop 03/31/22 at 05:59 Ringer's Solution 1,000 ml @ 30 mls/hr Q24H IV ; Start 03/30/22 at 06:00; Stop 03/30/22 at 17:59 Hydromorphone HCl (Dilaudid) 0.5 mg PRN Q10MIN PRN IVP SEVERE PAIN 7-10, 2nd CHOICE; Start 03/30/22 at 06:00; Stop 03/31/22 at 05:59 Prochlorperazine Edisylate (Compazine) 5 mg PACU PRN PRN IVP NAUSEA, MRX1; Start 03/30/22 at 06:00; Stop 03/31/22 at 05:59 Acetaminophen (Tylenol) 650 mg PRN Q6HRS PRN PO MILD PAIN / TEMP > 100.3'F Last administered on 03/29/22at 19:54; Start 03/29/22 at 19:30 Ceftriaxone Sodium (Rocephin) 1 gm Q24H IVP ; Start 03/30/22 at 08:00 Active Scripts Active Reported Oxycodone Hcl 5 Mg Capsule 5 Mg PO PRN Q6HRS PRN Miralax (Polyethylene Glycol 3350) 17 Gm Powd.pack 1 Packet PO DAILY 2 Days dissolve in water Combivent Respimat Inhal (Ipratropium/Albuterol Sulfate) 4 Gm Aer.w.adap 2 Inh IH QID Albuterol Sulfate Neb Soln (Albuterol Sulfate) 0.63 Mg/3 Ml Vial.neb 1 Vial NEB TID Allergies Allergies: Coded Allergies: chlorpromazine (Verified Adverse Reaction, Intermediate, dizziness, n/v, 03/28/22) ROS Review of System As per HPI, rest of the ROS is negative Physical Exam Physical Exam General: no acute distress, HEENT:OM moist ,normocephalic andatraumatic. Neck:Supple Lungs CTA , Non labored, On RA CV S1 s2 Abd soft, NT BS + Ext No LE edema Neuro- Defer to Neurologist . Speech clear, Moving all extremities Psych Cooperative No Clements, No CVA or SP tenderness Vital Signs Vital Signs Date Time Temp Pulse Resp B/P (MAP) Pulse Ox O2 Delivery O2 Flow Rate FiO2 03/30/22 08:00 98.9 79 24 110/61 (77) 97 Nasal Cannula 3.0 98.9 Assessment & Plan ESRD MWF @ [facility] , last dialyzed on Monday . Labs and Resp status stable . Dialysis today per his regular schedule. Discussed treatment plan with BLAISE. Per patient no significant IDWG normally Bilateral subdural hematomas, chronic and acute, no obvious trauma, patient is not on anticoagulation. Plan for evacuation per NS - per nursing at 11:30 am today Hypotension - could be his baseline as not on any antihypertensives (per Meds reconciled by Dr Covarrubias) Anemia - Monitor, drop in Hgb since admission . Defer to Primary Labs Labs Laboratory Tests Test 03/28/22 16:40 03/29/22 05:20 03/29/22 05:54 03/29/22 12:20 White Blood Count 9.6 x10^3/uL (4.0-11.0) 9.2 x10^3/uL (4.0-11.0) Red Blood Count 3.81 x10^6/uL (4.30-5.70) 3.53 x10^6/uL (4.30-5.70) Hemoglobin 11.1 g/dL (13.0-17.5) 9.8 g/dL (13.0-17.5) Hematocrit 32.9 % (39.0-53.0) 30.5 % (39.0-53.0) Mean Corpuscular Volume 86 fL (79-100) 87 fL (79-100) Mean Corpuscular Hemoglobin 29 pg (25-35) 28 pg (25-35) Mean Corpuscular Hemoglobin Concent 34 g/dL (31-37) 32 g/dL (31-37) Red Cell Distribution Width 13.2 % (11.5-14.5) 13.4 % (11.5-14.5) Platelet Count 250 x10^3/uL (140-400) 246 x10^3/uL (140-400) Neutrophils (%) (Auto) 83 % (31-73) 80 % (31-73) Lymphocytes (%) (Auto) 8 % (24-48) 10 % (24-48) Monocytes (%) (Auto) 8 % (0-9) 8 % (0-9) Eosinophils (%) (Auto) 1 % (0-3) 1 % (0-3) Basophils (%) (Auto) 1 % (0-3) 1 % (0-3) Neutrophils # (Auto) 8.0 x10^3/uL (1.8-7.7) 7.4 x10^3/uL (1.8-7.7) Lymphocytes # (Auto) 0.7 x10^3/uL (1.0-4.8) 0.9 x10^3/uL (1.0-4.8) Monocytes # (Auto) 0.8 x10^3/uL (0.0-1.1) 0.8 x10^3/uL (0.0-1.1) Eosinophils # (Auto) 0.0 x10^3/uL (0.0-0.7) 0.1 x10^3/uL (0.0-0.7) Basophils # (Auto) 0.1 x10^3/uL (0.0-0.2) 0.0 x10^3/uL (0.0-0.2) Prothrombin Time 13.5 SEC (11.7-14.0) Prothromb Time International Ratio 1.1 (0.8-1.1) Activated Partial Thromboplast Time 42 SEC (24-38) Sodium Level 137 mmol/L (136-145) 137 mmol/L (136-145) Potassium Level 4.6 mmol/L (3.5-5.1) 4.7 mmol/L (3.5-5.1) Chloride Level 90 mmol/L (98-107) 91 mmol/L (98-107) Carbon Dioxide Level 38 mmol/L (21-32) 38 mmol/L (21-32) Anion Gap 9 (6-14) 8 (6-14) Blood Urea Nitrogen 27 mg/dL (8-26) 33 mg/dL (8-26) Creatinine 6.5 mg/dL (0.7-1.3) 8.2 mg/dL (0.7-1.3) Estimated GFR (Cockcroft-Gault) 10.4 7.9 Glucose Level 91 mg/dL (70-99) 87 mg/dL (70-99) Calcium Level 9.2 mg/dL (8.5-10.1) 9.3 mg/dL (8.5-10.1) Phosphorus Level 3.4 mg/dL (2.6-4.7) Magnesium Level 2.6 mg/dL (1.8-2.4) Troponin I High Sensitivity 19 ng/L (4-75) Vitamin B12 Level 794 pg/mL (247-911) Thyroid Stimulating Hormone (TSH) 0.882 uIU/mL (0.358-3.74) Erythrocyte Sedimentation Rate 75 (0-15) Hemoglobin A1c 5.1 % (4.8-5.6) Coronavirus (COVID-19)(PCR) Not detected (NOT DETECTD) SARS-CoV-2 Antigen (Rapid) Negative (NEGATIVE) Laboratory Tests Test 03/29/22 12:20 Coronavirus (COVID-19)(PCR) Not detected (NOT DETECTD) SARS-CoV-2 Antigen (Rapid) Negative (NEGATIVE) Review All relevant outside records, renal labs, imaging studies, telemetry/EKG's were reviewed. Images Images CT HEAD WO CONTRAST CT head without contrast: Reason for examination: Left-sided weakness. Helical images were obtained through the brain with no contrast administered. Reconstruction was performed in sagittal and coronal planes. Exposure: One or more of the following individualized dose reduction techniques were utilized for this examination: 1. Automated exposure control 2. Adjustment of the mA and/or kV according to patient size 3. Use of iterative reconstruction technique. Ventricular systems are asymmetric at the right lateral ventricle appearing to be larger than the left. There is a shift of midline to the left of approximately 6 mm. There are bilateral subdural hematomas, acute on chronic, right greater than left with the right subdural hematoma measuring 2.3 cm in greatest thickness and the left subdural hematoma measuring approximately 7.6 mm in greatest thickness. No acute infarcts, masses or intraparenchymal hemorrhage are evident. No abnormalities of seen at the orbits. The paranasal sinuses and mastoid air cells are clear. No acute abnormality seen in the skull. IMPRESSION: Acute on chronic subdural hematomas bilaterally with the right subdural hematoma measuring 2.3 cm in greatest thickness and the left subdural hematoma measuring 7.6 mm in greatest thickness. 6 mm shift of midline to the left. JOAN NESBITT MD March 30, 2022 08:58
--- NOTE | 2022-03-30 09:02 | RAD ---
Single view of the chest. 03/30/2022 8:40 AM Indication: Fever, elevated ESR Comparison: None available Findings: There is diffuse interstitial coarsening. Areas of lucency. Be present. Possible mild infil trate seen right lung base. No pneumothorax or pleural effusion is identified. Heart size is normal. Aortic calcification noted. No acute fracture is identified. Small sclerotic foci may be present in t he proximal left humerus. IMPRESSION: 1. Possible mild right basilar infiltrates 2. Diffuse interstitial thickening and areas of lucency. Correlate with emphysema or other interstiti al lung disease 3. Small sclerotic foci in the proximal left humerus. Consider follow-up dedicated radiographs Electronically signed by: Tavon Calhoun MD (03/30/2022 8:59 AM) [id number]
[2022-03-30] MEDS ORDERED: PHENYLEPHRINE in 0.9% NACL PF 1 MG/10 ML SYRINGE. IV ONE (09:49)
[2022-03-30] MEDS ORDERED: ceFAZolin SODIUM IV Push 1 GM VIAL. IVP ONE ×2 (09:51→10:00)
[2022-03-30] MEDS ORDERED: VASOPRESSIN 20 UNIT/ML VIAL. ONE (10:28)
[2022-03-30] MEDS ORDERED: IV NORMAL SALINE 1000ML BAG 1,000 ML IV SCH (12:00)
[2022-03-30] MEDS ORDERED: SUGAMMADEX SODIUM 200 MG/2 ML VIAL. IVP ONE (12:45)
[2022-03-30] MEDS ORDERED: GELATIN SPONGE SIZE 100. TP ONE (12:49)
[2022-03-30] MEDS ORDERED: BUPIVACAINE-EPI 0.5%-1:200000 MPF 30 ML VIAL. INJ ONE (12:49)
--- NOTE | 2022-03-30 13:55 | PDOC2 ---
CONSULT Date of Consult Date of Consult DATE: 03/30/22 TIME: 13:50 Reason for Consult Reason for Consult: Fever Referring Physician Referring Physician: Dr Covarrubias Source Source: Caregiver, Chart review History of Present Illness Reason for Visit: 66 year old male presented with weakness. He had a history of fall. Patient had fever of 101. Patient was started on ceftriaxone. Patient has history of end-stage renal disease on hemodialysis. CT head revealed subdural hematoma. Patient underwent craniotomy earlier today. ID consultation has been requested for antibiotic management. Patient remains afebrile. White count is normal. Labs, imaging and micro biology data reviewed. Patient denies any p ostop site pain. Denies any headache or ear pain or drainage. Denies any sore throat, nausea, vomiting, diarrhea, abdominal pain. Patient remains anuric. Discussed with RN. Past Medical History Past Medical History PMH Anxiety, depression, asthma, hypertension, schizoaffective disorder, polycystic kidney disease, end-stage renal disease on hemodialysis Monday, left upper extremity fistula, SOCIAL HISTORY: He does not drink, smoke or take drugs. He is retired. He is on disability. MEDICATIONS: Reviewed, please refer to the [facility]AD. Cardiovascular: HTN Pulmonary: Asthma Psych: Anxiety, Depression, Schizophrenia Renal/: Chronic renal failure (Dialysis) Past Surgical History Past Surgical History: No pertinent history Family History Family History As per HPI Current Problem List Problem List Problems Medical Problems: (1) Subdural hematoma Status: Acute Current Medications Current Medications Current Medications Levetiracetam 100 ml @ 400 mls/hr 1X ONCE IV Last administered on 03/28/22at 17:47; Start 03/28/22 at 17:30; Stop 03/28/22 at 17:44; Status DC Ondansetron HCl (Zofran) 4 mg PRN Q8HRS PRN IVP NAUSEA/VOMITING; Start 03/28/22 at 18:00; Stop 03/29/22 at 17:59; Status DC Cefazolin Sodium 1 gm/Sodium Chloride 1,000 ml @ 1,000 mls/hr 1X ONCE IRR Last administered on 03/30/22at 12:49; Start 03/30/22 at 06:00; Stop 03/30/22 at 06:59; Status DC Fentanyl Citrate (Fentanyl 2ml Vial) 25 mcg PRN Q5MIN PRN IVP MILD PAIN 1-3; Start 03/30/22 at 06:00; Stop 03/31/22 at 05:59 Fentanyl Citrate (Fentanyl 2ml Vial) 50 mcg PRN Q5MIN PRN IVP MODERATE PAIN 4- 6; Start 03/30/22 at 06:00; Stop 03/31/22 at 05:59 Morphine Sulfate (Morphine Sulfate) 1 mg PRN Q10MIN PRN IVP SEVERE PAIN 7-10; Start 03/30/22 at 06:00; Stop 03/31/22 at 05:59 Ringer's Solution 1,000 ml @ 30 mls/hr Q24H IV ; Start 03/30/22 at 06:00; Stop 03/30/22 at 17:59 Hydromorphone HCl (Dilaudid) 0.5 mg PRN Q10MIN PRN IVP SEVERE PAIN 7-10, 2nd CHOICE; Start 03/30/22 at 06:00; Stop 03/31/22 at 05:59 Prochlorperazine Edisylate (Compazine) 5 mg PACU PRN PRN IVP NAUSEA, MRX1; Start 03/30/22 at 06:00; Stop 03/31/22 at 05:59 Acetaminophen (Tylenol) 650 mg PRN Q6HRS PRN PO MILD PAIN / TEMP > 100.3'F Last administered on 03/29/22at 19:54; Start 03/29/22 at 19:30 Ceftriaxone Sodium (Rocephin) 1 gm Q24H IVP Last administered on 03/30/22at 11:10; Start 03/30/22 at 08:00 Sugammadex Sodium (Bridion) 200 mg 1X ONCE IVP ; Start 03/30/22 at 12:45; Stop 03/30/22 at 12:46; Status DC Bupivacaine HCl/ Epinephrine Bitart (Sensorcain-Epi 0.5%-1:689046 Mpf) 30 ml STK-MED ONCE INJ Last administered on 03/30/22at 12:49; Start 03/30/22 at 12:49; Stop 03/30/22 at 13:07; Status DC Thrombin 20,000 unit STK-MED ONCE TP Last administered on 03/30/22at 12:49; Start 03/30/22 at 12:49; Stop 03/30/22 at 13:07; Status DC Gelatin (Gelfoam Size 100) 1 each STK-MED ONCE TP Last administered on 03/30/22at 12:49; Start 03/30/22 at 12:49; Stop 03/30/22 at 13:07; Status DC Active Scripts Active Reported Oxycodone Hcl 5 Mg Capsule 5 Mg PO PRN Q6HRS PRN Miralax (Polyethylene Glycol 3350) 17 Gm Powd.pack 1 Packet PO DAILY 2 Days dissolve in water Combivent Respimat Inhal (Ipratropium/Albuterol Sulfate) 4 Gm Aer.w.adap 2 Inh IH QID Albuterol Sulfate Neb Soln (Albuterol Sulfate) 0.63 Mg/3 Ml Vial.neb 1 Vial NEB TID Allergies Allergies: Coded Allergies: chlorpromazine (Verified Adverse Reaction, Intermediate, dizziness, n/v, 03/30/22) ROS Review of System Negative except for above in HPI Physical Exam Physical Exam GENERAL: Alert, oriented x 3, lying in bed comfortably, in no acute distress. HEENT: Postoperative dressing with drain in place, dry and intact, pupils equal reactive, no thrush, oral mucosa moist NECK: Supple. LUNGS: Clear bilaterally. No wheezing. HEART: S1, S2. No gallops or murmurs. ABDOMEN: Soft, nontender, nondistended. No rebound or guarding. EXTREMITIES: No edema or cyanosis no Clements in place. MUSCULOSKELETAL: No joint swelling. No decrease in range of motion. CENTRAL NERVOUS SYSTEM: Alert, oriented x 3, grossly nonfocal. PSYCHIATRIC: Cooperative, calm. LINES: looks clean. Left upper extremity AV fistula without complication Vitals VITALS Vital Signs Date Time Temp Pulse Resp B/P (MAP) Pulse Ox O2 Delivery O2 Flow Rate FiO2 03/30/22 11:00 63 24 102/63 (76) 100 Nasal Cannula 3.0 03/30/22 08:00 98.9 98.9 Labs Labs Laboratory Tests Test 03/28/22 16:40 03/29/22 05:20 03/29/22 05:54 03/29/22 12:20 White Blood Count 9.6 x10^3/uL (4.0-11.0) 9.2 x10^3/uL (4.0-11.0) Red Blood Count 3.81 x10^6/uL (4.30-5.70) 3.53 x10^6/uL (4.30-5.70) Hemoglobin 11.1 g/dL (13.0-17.5) 9.8 g/dL (13.0-17.5) Hematocrit 32.9 % (39.0-53.0) 30.5 % (39.0-53.0) Mean Corpuscular Volume 86 fL (79-100) 87 fL (79-100) Mean Corpuscular Hemoglobin 29 pg (25-35) 28 pg (25-35) Mean Corpuscular Hemoglobin Concent 34 g/dL (31-37) 32 g/dL (31-37) Red Cell Distribution Width 13.2 % (11.5-14.5) 13.4 % (11.5-14.5) Platelet Count 250 x10^3/uL (140-400) 246 x10^3/uL (140-400) Neutrophils (%) (Auto) 83 % (31-73) 80 % (31-73) Lymphocytes (%) (Auto) 8 % (24-48) 10 % (24-48) Monocytes (%) (Auto) 8 % (0-9) 8 % (0-9) Eosinophils (%) (Auto) 1 % (0-3) 1 % (0-3) Basophils (%) (Auto) 1 % (0-3) 1 % (0-3) Neutrophils # (Auto) 8.0 x10^3/uL (1.8-7.7) 7.4 x10^3/uL (1.8-7.7) Lymphocytes # (Auto) 0.7 x10^3/uL (1.0-4.8) 0.9 x10^3/uL (1.0-4.8) Monocytes # (Auto) 0.8 x10^3/uL (0.0-1.1) 0.8 x10^3/uL (0.0-1.1) Eosinophils # (Auto) 0.0 x10^3/uL (0.0-0.7) 0.1 x10^3/uL (0.0-0.7) Basophils # (Auto) 0.1 x10^3/uL (0.0-0.2) 0.0 x10^3/uL (0.0-0.2) Prothrombin Time 13.5 SEC (11.7-14.0) Prothromb Time International Ratio 1.1 (0.8-1.1) Activated Partial Thromboplast Time 42 SEC (24-38) Sodium Level 137 mmol/L (136-145) 137 mmol/L (136-145) Potassium Level 4.6 mmol/L (3.5-5.1) 4.7 mmol/L (3.5-5.1) Chloride Level 90 mmol/L (98-107) 91 mmol/L (98-107) Carbon Dioxide Level 38 mmol/L (21-32) 38 mmol/L (21-32) Anion Gap 9 (6-14) 8 (6-14) Blood Urea Nitrogen 27 mg/dL (8-26) 33 mg/dL (8-26) Creatinine 6.5 mg/dL (0.7-1.3) 8.2 mg/dL (0.7-1.3) Estimated GFR (Cockcroft-Gault) 10.4 7.9 Glucose Level 91 mg/dL (70-99) 87 mg/dL (70-99) Calcium Level 9.2 mg/dL (8.5-10.1) 9.3 mg/dL (8.5-10.1) Phosphorus Level 3.4 mg/dL (2.6-4.7) Magnesium Level 2.6 mg/dL (1.8-2.4) Troponin I High Sensitivity 19 ng/L (4-75) Vitamin B12 Level 794 pg/mL (247-911) Thyroid Stimulating Hormone (TSH) 0.882 uIU/mL (0.358-3.74) Erythrocyte Sedimentation Rate 75 (0-15) Hemoglobin A1c 5.1 % (4.8-5.6) Coronavirus (COVID-19)(PCR) Not detected (NOT DETECTD) SARS-CoV-2 Antigen (Rapid) Negative (NEGATIVE) Assessment/Plan Assessment/Plan Impression Fever could be from subdural hematoma History of fall Subdural hematoma status post craniectomy March 30 Hypertension End-stage renal disease on hemodialysis Anxiety and depression History of asthma Pulmonary infiltrates Recommendations Change ceftriaxone to Zosyn Monitor labs and cultures Continue wound care as directed Continue supportive care Thank you for allowing me to persuade in this patient's care. If you have any questions do not hesitate to contact me. We will follow along with you. Discussed with RN. RAY LOPEZ MD March 30, 2022 13:55
[2022-03-30] MEDS: fentaNYL PF VIAL 100 MCG/2 ML VIAL IVP PRN ×2 (15:07→15:55)
[2022-03-30] MEDS: PIPERACILLIN/TAZOBACTAM 2.25 GM in IV NORMAL SALINE 50ML 50 ML IV SCH (21:37)
[2022-03-31] VITALS (24 sets, daily range): BP systolic 98–144; BP diastolic 48–71
[2022-03-31] MEDS: PIPERACILLIN/TAZOBACTAM 2.25 GM in IV NORMAL SALINE 50ML 50 ML IV SCH ×2 (05:35→17:55)
[2022-03-31 05:45] LABS: BASO # 0.1 x10^3/uL (0.0-0.2); BASO % 1 % (0-3); EOS # 0.1 x10^3/uL (0.0-0.7); EOS % 1 % (0-3); HEMATOCRIT 26.7 % (39.0-53.0); HEMOGLOBIN 8.7 g/dL (13.0-17.5); LYMPH # 1.1 x10^3/uL (1.0-4.8); LYMPH % 8 % (24-48); MEAN CORPUSCULAR HEMOGLOBIN 28 pg (25-35); MEAN CORPUSCULAR HGB CONC 33 g/dL (31-37); MEAN CORPUSCULAR VOLUME 85 fL (79-100); MONO % 7 % (0-9); NEUT % 83 % (31-73); PLATELET COUNT 242 x10^3/uL (140-400); RED BLOOD COUNT 3.12 x10^6/uL (4.30-5.70); RED CELL DISTRIBUTION WIDTH 13.5 % (11.5-14.5); WHITE BLOOD COUNT 13.2 x10^3/uL (4.0-11.0)
[2022-03-31 06:20] LABS: ALBUMIN 2.7 g/dL (3.4-5.0); ALBUMIN/GLOBULIN RATIO 0.6 (1.0-1.7); CALCIUM 9.3 mg/dL (8.5-10.1); CREATININE 12.1 mg/dL (0.7-1.3); GFR 5.1; MAGNESIUM 2.7 mg/dL (1.8-2.4); POTASSIUM 5.5 mmol/L (3.5-5.1); TOTAL BILIRUBIN 0.4 mg/dL (0.2-1.0); TOTAL PROTEIN 7.2 g/dL (6.4-8.2)
[2022-03-31] MEDS: POLYETHYLENE GLYCOL 3350 17 GM PACKET. PO SCH (08:45)
--- NOTE | 2022-03-31 09:25 | PDOC ---
DATE OF SERVICE DATE: 03/31/22 TIME: 09:21 SUBJECTIVE ROS S/P SDH evacuation 0n 03/30 States feeling good. No complaints . Denies N/V.No SOB OBJECTIVE Vital Signs Vital Signs Date Time Temp Pulse Resp B/P (MAP) Pulse Ox O2 Delivery O2 Flow Rate FiO2 03/31/22 08:00 98.0 74 15 137/65 (89) 94 Nasal Cannula 3.0 98.0 I & 0 Intake and Output 03/31/22 07:00 Intake Total 925 ml Output Total 30 ml Balance 895 ml Intake Oral 425 ml IV Total 500 ml Drainage Total 10 ml Estimated Blood Loss 20 ml PHYSICAL EXAM Physical Exam General: no acute distress, dressing on his right scalp HEENT:OM moist ,normocephalic andatraumatic. Neck:Supple Lungs CTA , Non labored, On RA CV S1 s2 Abd soft, NT BS + Ext No LE edema Neuro- Defer to Neurologist . Speech clear, Moving all extremities Psych Cooperative No Clements, No CVA or SP tenderness DIAGNOSIS/ASSESSMENT Assessment & Plan ESRD MWF @ [facility] , last dialyzed on Monday . Labs and Resp status stable .Dialysis held yesterday as he was in the OR . Dialysis today , Discussed treatment plan with BLAISE. Per patient no significant IDWG normally Hyperkalemia- mild , dialysis today Bilateral subdural hematomas, chronic and acute, no obvious trauma, patient is not on anticoagulation. S/P evacuation Hypotension - could be his baseline as not on any antihypertensives (per Meds reconciled by Dr Covarrubias) Anemia - Monitor, drop in Hgb since admission . Defer to Primary COMMENT/RELEVANT DATA Meds Current Medications Medications (Trade) Dose Ordered Sig/Cherelle Start Time Stop Time Status Last Admin Dose Admin Acetaminophen (Tylenol) 650 mg PRN Q6HRS PRN 03/29/22 19:30 03/29/22 19:54 650 MG Bupivacaine HCl/ Epinephrine Bitart (Sensorcain-Epi 0.5%-1:452842 Mpf) 30 ml STK-MED ONCE 03/30/22 12:49 03/30/22 13:07 DC 03/30/22 12:49 5 ML Cefazolin Sodium (Ancef) 2 gm STK-MED ONCE 03/30/22 10:00 03/31/22 08:37 DC Cefazolin Sodium 1 gm/Sodium Chloride 1,000 ml @ 1,000 mls/hr 1X ONCE 03/30/22 06:00 03/30/22 06:59 DC 03/30/22 12:49 Ceftriaxone Sodium (Rocephin) 1 gm Q24H 03/30/22 08:00 03/30/22 15:55 DC 03/30/22 11:10 1 GM Fentanyl Citrate (Fentanyl 2ml Vial) 50 mcg PRN Q5MIN PRN 03/30/22 06:00 03/31/22 05:59 DC 03/30/22 15:55 50 MCG Gelatin (Gelfoam Size 100) 1 each STK-MED ONCE 03/30/22 12:49 03/30/22 13:07 DC 03/30/22 12:49 1 EACH Hydromorphone HCl (Dilaudid) 0.5 mg PRN Q10MIN PRN 03/30/22 06:00 03/31/22 05:59 DC Levetiracetam 100 ml @ 400 mls/hr 1X ONCE 03/28/22 17:30 03/28/22 17:44 DC 03/28/22 17:47 400 MLS/HR Morphine Sulfate (Morphine Sulfate) 1 mg PRN Q10MIN PRN 03/30/22 06:00 03/31/22 05:59 DC Ondansetron HCl (Zofran) 4 mg PRN Q8HRS PRN 03/28/22 18:00 03/29/22 17:59 DC Piperacillin Sod/ Tazobactam Sod 2.25 gm/Sodium Chloride 50 ml @ 100 mls/hr Q8HRS 03/30/22 22:00 03/31/22 05:35 100 MLS/HR Polyethylene Glycol (miraLAX PACKET) 17 gm DAILY 03/31/22 09:00 03/31/22 08:45 17 GM Prochlorperazine Edisylate (Compazine) 5 mg PACU PRN PRN 03/30/22 06:00 03/31/22 05:59 DC Ringer's Solution 1,000 ml @ 30 mls/hr Q24H 03/30/22 06:00 03/30/22 17:59 DC Sodium Chloride 1,000 ml @ 30 mls/hr Q24H 03/30/22 12:00 03/30/22 12:00 30 MLS/HR Sugammadex Sodium (Bridion) 200 mg 1X ONCE 03/30/22 12:45 03/30/22 12:46 DC Thrombin 20,000 unit STK-MED ONCE 03/30/22 12:49 03/30/22 13:07 DC 03/30/22 12:49 20,000 UNIT Lab Laboratory Tests Test 03/31/22 05:30 White Blood Count 13.2 x10^3/uL (4.0-11.0) Red Blood Count 3.12 x10^6/uL (4.30-5.70) Hemoglobin 8.7 g/dL (13.0-17.5) Hematocrit 26.7 % (39.0-53.0) Mean Corpuscular Volume 85 fL (79-100) Mean Corpuscular Hemoglobin 28 pg (25-35) Mean Corpuscular Hemoglobin Concent 33 g/dL (31-37) Red Cell Distribution Width 13.5 % (11.5-14.5) Platelet Count 242 x10^3/uL (140-400) Neutrophils (%) (Auto) 83 % (31-73) Lymphocytes (%) (Auto) 8 % (24-48) Monocytes (%) (Auto) 7 % (0-9) Eosinophils (%) (Auto) 1 % (0-3) Basophils (%) (Auto) 1 % (0-3) Neutrophils # (Auto) 11.0 x10^3/uL (1.8-7.7) Lymphocytes # (Auto) 1.1 x10^3/uL (1.0-4.8) Monocytes # (Auto) 1.0 x10^3/uL (0.0-1.1) Eosinophils # (Auto) 0.1 x10^3/uL (0.0-0.7) Basophils # (Auto) 0.1 x10^3/uL (0.0-0.2) Sodium Level 133 mmol/L (136-145) Potassium Level 5.5 mmol/L (3.5-5.1) Chloride Level 91 mmol/L (98-107) Carbon Dioxide Level 31 mmol/L (21-32) Anion Gap 11 (6-14) Blood Urea Nitrogen 66 mg/dL (8-26) Creatinine 12.1 mg/dL (0.7-1.3) Estimated GFR (Cockcroft-Gault) 5.1 BUN/Creatinine Ratio 5 (6-20) Glucose Level 94 mg/dL (70-99) Calcium Level 9.3 mg/dL (8.5-10.1) Magnesium Level 2.7 mg/dL (1.8-2.4) Total Bilirubin 0.4 mg/dL (0.2-1.0) Aspartate Amino Transf (AST/SGOT) 8 U/L (15-37) Alanine Aminotransferase (ALT/SGPT) 6 U/L (16-63) Alkaline Phosphatase 60 U/L (46-116) Total Protein 7.2 g/dL (6.4-8.2) Albumin 2.7 g/dL (3.4-5.0) Albumin/Globulin Ratio 0.6 (1.0-1.7) Results All relevant outside records, renal labs, imaging studies, telemetry/EKG's were reviewed. Justicifation of Admission Dx: Justifications for Admission: Justification of Admission Dx: N/A JOAN NESBITT MD March 31, 2022 09:24
--- NOTE | 2022-03-31 09:42 | OP ---
DATE OF SURGERY: 03/30/2022 PREOPERATIVE DIAGNOSIS: Right convexity chronic and subacute subdural hematoma. POSTOPERATIVE DIAGNOSIS: Right convexity chronic and subacute subdural hematoma. OPERATION PERFORMED: Right central craniotomy with evacuation of subdural hematoma and placement of drain. SURGEON: Tyrone Rizvi M.D. CARDROOM SUPERVISOR: GODWIN Preciado, assisted with the exposure, the evacuation of the subdural as well as the closure. OPERATIVE INDICATIONS: The patient is a pleasant 66-year-old who developed problems with weakness of his left leg. On imaging studies, he was found to have a large right-sided subdural hematoma with significant shift. He he had a smaller left-sided subdural measuring about 7 mm, but I felt the right side was symptomatic and because of his age and overall medical condition, I felt that an operation would be beneficial and we could follow the other subdural and hopefully it will resolve spontaneously. I did discuss this with the patient in detail who was in surprisingly good condition, understood clearly and wished to go ahead. DESCRIPTION OF PROCEDURE: Following general endotracheal anesthesia, the patient was positioned supine on the operating room table with his head turned to the left on a donut. He was clipped, prepped and draped in the standard fashion. PALMER hose and AV impulse boots were applied for DVT prophylaxis. A microscope was draped, fluoroscopy was draped and brought into the field. Monitoring was established. Ancef 2 grams given prior to surgery. A linear incision was made slightly anterior and above the right ear extending to the midline. I did anesthetize the skin with 0.5% Marcaine plus epinephrine. I used periosteal elevator to reflect the periosteum and placed a self-retaining retractor, brought in the high-speed air drill with a single bur hole and then I enlarged that with the craniotome and removed the bone flap. I opened the dura in a cruciate fashion. There was spontaneous egress of crankcase type fluid. I tacked the edges of the dural opening back with 4-0 Nurolon and then there was a membrane bulging. I opened the membrane, there was further egress of purulence. I irrigated with slightly warmed saline and then worked down through another membrane and well visualized brain, which was gradually moving laterally. As I worked and irrigated, the irrigation came back quite clear. I irrigated copiously. Then when the irrigation was completely clear, then I closed the dural opening with interrupted 4-[address] did [address] a round 10-Belizean fully perforated drain, which I brought out through a separate stab incision. I applied Duragen, replaced the bone flap, secured this with microplates and then closed the wound in layers with absorbable suture and the skin was closed with skin gustabo. I felt the surgery went very well. ZAID/ILIA DR: Cecil TID: [id number] LAUREN
--- NOTE | 2022-03-31 09:56 | NUR ---
SS following for discharge planning. SS reviewed pt chart and discussed with RNDominik. Pt is LTC resident from [facility], ; fax [phone]. Pt had Craniotomy on 03/30/2022. Pt is currently requiring nasal canula oxygen and on IV Zosyn. COVID19 negative. Clinical updates faxed to facility. Packet placed on chart. SS will continue to follow for discharge planning.
--- NOTE | 2022-03-31 10:07 | PDOC ---
[employer] PROGRESS NOTE Date of Service DOS: DATE: 03/31/22 TIME: 10:05 Chief Complaint Chief Complaint Subdural hematoma ESRD on dialysis Asthma Arthritis History of Present Illness History of Present Illness 03/31/2022 Patient seen and examined in the ICU He is postop day 1 subdural hematoma evacuation Has a dressing on his right scalp with a little blood on it Clinically he looks great Discussed with RN Chart reviewed 03/30/2022 Patient seen and examined in the ICU Discussed with RN He is scheduled to go to surgery today for craniotomy and for hematoma evacuation He had a low-grade temp of 101 I called the pharmacy and started empiric Rocephin Currently having some PVCs on the monitor Blood pressure a little low at 88/58 Chart reviewed 03/29/2022 Patient seen and examined in the ICU He is eating breakfast Discussed with case management Discussed with RN Chart reviewed Awaiting further neurosurgical input Vitals/I&O Vitals/I&O: Vital Signs Date Time Temp Pulse Resp B/P (MAP) Pulse Ox O2 Delivery O2 Flow Rate FiO2 03/31/22 08:00 98.0 74 15 137/65 (89) 94 Nasal Cannula 3.0 98.0 I & O 03/30/22 03/30/22 03/31/22 15:00 23:00 07:00 Intake Total 400 ml 300 ml 225 ml Output Total 20 ml 10 ml Balance 380 ml 290 ml 225 ml Physical Exam General: Alert Heart: Regular rate Lungs: Clear Abdomen: Normal bowel sounds Extremities: No clubbing Skin: No rashes Labs Labs: Laboratory Tests Test 03/31/22 05:30 White Blood Count 13.2 x10^3/uL (4.0-11.0) Red Blood Count 3.12 x10^6/uL (4.30-5.70) Hemoglobin 8.7 g/dL (13.0-17.5) Hematocrit 26.7 % (39.0-53.0) Mean Corpuscular Volume 85 fL (79-100) Mean Corpuscular Hemoglobin 28 pg (25-35) Mean Corpuscular Hemoglobin Concent 33 g/dL (31-37) Red Cell Distribution Width 13.5 % (11.5-14.5) Platelet Count 242 x10^3/uL (140-400) Neutrophils (%) (Auto) 83 % (31-73) Lymphocytes (%) (Auto) 8 % (24-48) Monocytes (%) (Auto) 7 % (0-9) Eosinophils (%) (Auto) 1 % (0-3) Basophils (%) (Auto) 1 % (0-3) Neutrophils # (Auto) 11.0 x10^3/uL (1.8-7.7) Lymphocytes # (Auto) 1.1 x10^3/uL (1.0-4.8) Monocytes # (Auto) 1.0 x10^3/uL (0.0-1.1) Eosinophils # (Auto) 0.1 x10^3/uL (0.0-0.7) Basophils # (Auto) 0.1 x10^3/uL (0.0-0.2) Sodium Level 133 mmol/L (136-145) Potassium Level 5.5 mmol/L (3.5-5.1) Chloride Level 91 mmol/L (98-107) Carbon Dioxide Level 31 mmol/L (21-32) Anion Gap 11 (6-14) Blood Urea Nitrogen 66 mg/dL (8-26) Creatinine 12.1 mg/dL (0.7-1.3) Estimated GFR (Cockcroft-Gault) 5.1 BUN/Creatinine Ratio 5 (6-20) Glucose Level 94 mg/dL (70-99) Calcium Level 9.3 mg/dL (8.5-10.1) Magnesium Level 2.7 mg/dL (1.8-2.4) Total Bilirubin 0.4 mg/dL (0.2-1.0) Aspartate Amino Transf (AST/SGOT) 8 U/L (15-37) Alanine Aminotransferase (ALT/SGPT) 6 U/L (16-63) Alkaline Phosphatase 60 U/L (46-116) Total Protein 7.2 g/dL (6.4-8.2) Albumin 2.7 g/dL (3.4-5.0) Albumin/Globulin Ratio 0.6 (1.0-1.7) Assessment and Plan Assessmemt and Plan Problems Medical Problems: (1) Subdural hematoma Status: Acut Postop day 1 subdural hematoma evacuation Fevers Hypotension Weakness ESRD on dialysis Asthma Arthritis Plan ICU monitoring Wound care Empiric Rocephin Appreciate subspecialist input Dialysis per nephrology Trend labs Home meds DVT prophylaxis Full code Suspect he will be able to go back to his facility in [place] in a day or so when okay with neurosurgery Comment Review of Relevant I have reviewed the following items arcelia (where applicable) has been applied. Medications: Current Medications Medications (Trade) Dose Ordered Sig/Cherelle Route PRN Reason Start Time Stop Time Status Last Admin Dose Admin Bupivacaine HCl/ Epinephrine Bitart (Sensorcain-Epi 0.5%-1:891285 Mpf) 30 ml STK-MED ONCE INJ 03/30/22 12:49 03/30/22 13:07 DC 03/30/22 12:49 Thrombin 20,000 unit STK-MED ONCE TP 03/30/22 12:49 03/30/22 13:07 DC 03/30/22 12:49 Gelatin (Gelfoam Size 100) 1 each STK-MED ONCE TP 03/30/22 12:49 03/30/22 13:07 DC 03/30/22 12:49 Sodium Chloride 1,000 ml @ 30 mls/hr Q24H IV 03/30/22 12:00 03/30/22 12:00 Piperacillin Sod/ Tazobactam Sod 2.25 gm/Sodium Chloride 50 ml @ 100 mls/hr Q8HRS IV 03/30/22 22:00 03/31/22 05:35 Polyethylene Glycol (miraLAX PACKET) 17 gm DAILY PO 03/31/22 09:00 03/31/22 08:45 Justifications for Admission Other Justification ARIEL BARRERA III DO March 31, 2022 10:06
--- NOTE | 2022-03-31 12:03 | PDOC ---
Infectious Disease Note Subjective: Subjective Patient without complaints Underwent drain removal earlier today Denies any pain Denies any fever, chills, nausea, vomiting, diarrhea, abdominal pain Awaiting dialysis session later today Father and mother at bedside Discussed with RN Vital Signs: Vital Signs Vital Signs Date Time Temp Pulse Resp B/P (MAP) Pulse Ox O2 Delivery O2 Flow Rate FiO2 03/31/22 11:00 66 18 128/50 (76) 100 Nasal Cannula 3.0 03/31/22 08:00 98.0 98.0 Physical Exam: PHYSICAL EXAM GENERAL: Alert, oriented x 3, lying in bed comfortably, in no acute distress. HEENT: Postoperative dressing with drain in place, dry and intact, pupils equal reactive, no thrush, oral mucosa moist NECK: Supple. LUNGS: Clear bilaterally. No wheezing. HEART: S1, S2. No gallops or murmurs. ABDOMEN: Soft, nontender, nondistended. No rebound or guarding. EXTREMITIES: No edema or cyanosis no Clements in place. MUSCULOSKELETAL: No joint swelling. No decrease in range of motion. CENTRAL NERVOUS SYSTEM: Alert, oriented x 3, grossly nonfocal. PSYCHIATRIC: Cooperative, calm. LINES: looks clean. Left upper extremity AV fistula without complication Medications: Inpatient Meds: Medications reviewed. Labs: Lab Laboratory Tests Test 03/31/22 05:30 White Blood Count 13.2 x10^3/uL (4.0-11.0) Red Blood Count 3.12 x10^6/uL (4.30-5.70) Hemoglobin 8.7 g/dL (13.0-17.5) Hematocrit 26.7 % (39.0-53.0) Mean Corpuscular Volume 85 fL (79-100) Mean Corpuscular Hemoglobin 28 pg (25-35) Mean Corpuscular Hemoglobin Concent 33 g/dL (31-37) Red Cell Distribution Width 13.5 % (11.5-14.5) Platelet Count 242 x10^3/uL (140-400) Neutrophils (%) (Auto) 83 % (31-73) Lymphocytes (%) (Auto) 8 % (24-48) Monocytes (%) (Auto) 7 % (0-9) Eosinophils (%) (Auto) 1 % (0-3) Basophils (%) (Auto) 1 % (0-3) Neutrophils # (Auto) 11.0 x10^3/uL (1.8-7.7) Lymphocytes # (Auto) 1.1 x10^3/uL (1.0-4.8) Monocytes # (Auto) 1.0 x10^3/uL (0.0-1.1) Eosinophils # (Auto) 0.1 x10^3/uL (0.0-0.7) Basophils # (Auto) 0.1 x10^3/uL (0.0-0.2) Sodium Level 133 mmol/L (136-145) Potassium Level 5.5 mmol/L (3.5-5.1) Chloride Level 91 mmol/L (98-107) Carbon Dioxide Level 31 mmol/L (21-32) Anion Gap 11 (6-14) Blood Urea Nitrogen 66 mg/dL (8-26) Creatinine 12.1 mg/dL (0.7-1.3) Estimated GFR (Cockcroft-Gault) 5.1 BUN/Creatinine Ratio 5 (6-20) Glucose Level 94 mg/dL (70-99) Calcium Level 9.3 mg/dL (8.5-10.1) Magnesium Level 2.7 mg/dL (1.8-2.4) Total Bilirubin 0.4 mg/dL (0.2-1.0) Aspartate Amino Transf (AST/SGOT) 8 U/L (15-37) Alanine Aminotransferase (ALT/SGPT) 6 U/L (16-63) Alkaline Phosphatase 60 U/L (46-116) Total Protein 7.2 g/dL (6.4-8.2) Albumin 2.7 g/dL (3.4-5.0) Albumin/Globulin Ratio 0.6 (1.0-1.7) Objective: Assessment: Fever could be from subdural hematoma,pattern improved History of fall Subdural hematoma status post craniectomy March 30 Hypertension End-stage renal disease on hemodialysis Anxiety and depression History of asthma Pulmonary infiltrates Plan: Plan of Care Cont Zosyn Monitor labs and cultures Continue wound care as directed Continue supportive care RAY LOPEZ MD March 31, 2022 12:03
--- NOTE | 2022-03-31 12:59 | PDOC ---
PROGRESS NOTES Date of Service DATE: 03/31/22 TIME: 12:54 Assessment Problems Medical Problems: (1) Subdural hematoma Status: Acute Fever 03/29 night, sedimentation rate 75, pulmonary infiltrates, ID seeing patient Status-post on 03/30 right central craniotomy with evacuation of subdural hematoma and placement of drain. Bilateral subdural hematomas, chronic and acute, no obvious trauma, patient is not on anticoagulation. Stable on second head CT 03/29 Exam points to peripheral neuropathy, need to rule out diabetes, connective tissue disease, thyroid abnormalities, vitamin deficiencies, dysproteinemias. All labs except the sedimentation rate are normal so far Plan Also ordered urinalysis yesterday Does not need prophylactic anticonvulsants Rehabilitation modalities Await rest of laboratory studies for various causes of neuropathy Subjective No complaints Objective Vital Signs Date Time Temp Pulse Resp B/P (MAP) Pulse Ox O2 Delivery O2 Flow Rate FiO2 03/31/22 12:00 98.8 68 15 125/60 (81) 94 Nasal Cannula 3.0 98.8 Intake and Output 03/31/22 07:00 Intake Total 925 ml Output Total 30 ml Balance 895 ml Intake Oral 425 ml IV Total 500 ml Drainage Total 10 ml Estimated Blood Loss 20 ml PHYSICAL EXAM Alert. Oriented to time, place and person. PERRL. EOMI. CN: no focal findings. Muscle tone: normal. Muscle strength: 4/5 arms, 4/5 right leg, 3/5 left leg DTR: 0+ Plantar reflex: Flexor Gait: not examined in bed. Sensory exam: Stocking loss. No cerebellar signs elicited. Review of Relevant I have reviewed the following items arcelia (where applicable) has been applied. Labs Laboratory Tests Test 03/31/22 05:30 White Blood Count 13.2 x10^3/uL (4.0-11.0) Red Blood Count 3.12 x10^6/uL (4.30-5.70) Hemoglobin 8.7 g/dL (13.0-17.5) Hematocrit 26.7 % (39.0-53.0) Mean Corpuscular Volume 85 fL (79-100) Mean Corpuscular Hemoglobin 28 pg (25-35) Mean Corpuscular Hemoglobin Concent 33 g/dL (31-37) Red Cell Distribution Width 13.5 % (11.5-14.5) Platelet Count 242 x10^3/uL (140-400) Neutrophils (%) (Auto) 83 % (31-73) Lymphocytes (%) (Auto) 8 % (24-48) Monocytes (%) (Auto) 7 % (0-9) Eosinophils (%) (Auto) 1 % (0-3) Basophils (%) (Auto) 1 % (0-3) Neutrophils # (Auto) 11.0 x10^3/uL (1.8-7.7) Lymphocytes # (Auto) 1.1 x10^3/uL (1.0-4.8) Monocytes # (Auto) 1.0 x10^3/uL (0.0-1.1) Eosinophils # (Auto) 0.1 x10^3/uL (0.0-0.7) Basophils # (Auto) 0.1 x10^3/uL (0.0-0.2) Sodium Level 133 mmol/L (136-145) Potassium Level 5.5 mmol/L (3.5-5.1) Chloride Level 91 mmol/L (98-107) Carbon Dioxide Level 31 mmol/L (21-32) Anion Gap 11 (6-14) Blood Urea Nitrogen 66 mg/dL (8-26) Creatinine 12.1 mg/dL (0.7-1.3) Estimated GFR (Cockcroft-Gault) 5.1 BUN/Creatinine Ratio 5 (6-20) Glucose Level 94 mg/dL (70-99) Calcium Level 9.3 mg/dL (8.5-10.1) Magnesium Level 2.7 mg/dL (1.8-2.4) Total Bilirubin 0.4 mg/dL (0.2-1.0) Aspartate Amino Transf (AST/SGOT) 8 U/L (15-37) Alanine Aminotransferase (ALT/SGPT) 6 U/L (16-63) Alkaline Phosphatase 60 U/L (46-116) Total Protein 7.2 g/dL (6.4-8.2) Albumin 2.7 g/dL (3.4-5.0) Albumin/Globulin Ratio 0.6 (1.0-1.7) Laboratory Tests Test 03/31/22 05:30 White Blood Count 13.2 x10^3/uL (4.0-11.0) Red Blood Count 3.12 x10^6/uL (4.30-5.70) Hemoglobin 8.7 g/dL (13.0-17.5) Hematocrit 26.7 % (39.0-53.0) Mean Corpuscular Volume 85 fL (79-100) Mean Corpuscular Hemoglobin 28 pg (25-35) Mean Corpuscular Hemoglobin Concent 33 g/dL (31-37) Red Cell Distribution Width 13.5 % (11.5-14.5) Platelet Count 242 x10^3/uL (140-400) Neutrophils (%) (Auto) 83 % (31-73) Lymphocytes (%) (Auto) 8 % (24-48) Monocytes (%) (Auto) 7 % (0-9) Eosinophils (%) (Auto) 1 % (0-3) Basophils (%) (Auto) 1 % (0-3) Neutrophils # (Auto) 11.0 x10^3/uL (1.8-7.7) Lymphocytes # (Auto) 1.1 x10^3/uL (1.0-4.8) Monocytes # (Auto) 1.0 x10^3/uL (0.0-1.1) Eosinophils # (Auto) 0.1 x10^3/uL (0.0-0.7) Basophils # (Auto) 0.1 x10^3/uL (0.0-0.2) Sodium Level 133 mmol/L (136-145) Potassium Level 5.5 mmol/L (3.5-5.1) Chloride Level 91 mmol/L (98-107) Carbon Dioxide Level 31 mmol/L (21-32) Anion Gap 11 (6-14) Blood Urea Nitrogen 66 mg/dL (8-26) Creatinine 12.1 mg/dL (0.7-1.3) Estimated GFR (Cockcroft-Gault) 5.1 BUN/Creatinine Ratio 5 (6-20) Glucose Level 94 mg/dL (70-99) Calcium Level 9.3 mg/dL (8.5-10.1) Magnesium Level 2.7 mg/dL (1.8-2.4) Total Bilirubin 0.4 mg/dL (0.2-1.0) Aspartate Amino Transf (AST/SGOT) 8 U/L (15-37) Alanine Aminotransferase (ALT/SGPT) 6 U/L (16-63) Alkaline Phosphatase 60 U/L (46-116) Total Protein 7.2 g/dL (6.4-8.2) Albumin 2.7 g/dL (3.4-5.0) Albumin/Globulin Ratio 0.6 (1.0-1.7) Medications Current Medications Levetiracetam 100 ml @ 400 mls/hr 1X ONCE IV Last administered on 03/28/22at 17:47; Start 03/28/22 at 17:30; Stop 03/28/22 at 17:44; Status DC Ondansetron HCl (Zofran) 4 mg PRN Q8HRS PRN IVP NAUSEA/VOMITING; Start 03/28/22 at 18:00; Stop 03/29/22 at 17:59; Status DC Cefazolin Sodium 1 gm/Sodium Chloride 1,000 ml @ 1,000 mls/hr 1X ONCE IRR Last administered on 03/30/22at 12:49; Start 03/30/22 at 06:00; Stop 03/30/22 at 06:59; Status DC Fentanyl Citrate (Fentanyl 2ml Vial) 25 mcg PRN Q5MIN PRN IVP MILD PAIN 1-3; Start 03/30/22 at 06:00; Stop 03/31/22 at 05:59; Status DC Fentanyl Citrate (Fentanyl 2ml Vial) 50 mcg PRN Q5MIN PRN IVP MODERATE PAIN 4-6 Last administered on 03/30/22at 15:55; Start 03/30/22 at 06:00; Stop 03/31/22 at 05:59; Status DC Morphine Sulfate (Morphine Sulfate) 1 mg PRN Q10MIN PRN IVP SEVERE PAIN 7-10; Start 03/30/22 at 06:00; Stop 03/31/22 at 05:59; Status DC Ringer's Solution 1,000 ml @ 30 mls/hr Q24H IV ; Start 03/30/22 at 06:00; Stop 03/30/22 at 17:59; Status DC Hydromorphone HCl (Dilaudid) 0.5 mg PRN Q10MIN PRN IVP SEVERE PAIN 7-10, 2nd CHOICE; Start 03/30/22 at 06:00; Stop 03/31/22 at 05:59; Status DC Prochlorperazine Edisylate (Compazine) 5 mg PACU PRN PRN IVP NAUSEA, MRX1; Start 03/30/22 at 06:00; Stop 03/31/22 at 05:59; Status DC Acetaminophen (Tylenol) 650 mg PRN Q6HRS PRN PO MILD PAIN / TEMP > 100.3'F Last administered on 03/29/22at 19:54; Start 03/29/22 at 19:30 Ceftriaxone Sodium (Rocephin) 1 gm Q24H IVP Last administered on 03/30/22at 11:10; Start 03/30/22 at 08:00; Stop 03/30/22 at 15:55; Status DC Sugammadex Sodium (Bridion) 200 mg 1X ONCE IVP ; Start 03/30/22 at 12:45; Stop 03/30/22 at 12:46; Status DC Bupivacaine HCl/ Epinephrine Bitart (Sensorcain-Epi 0.5%-1:998017 Mpf) 30 ml STK-MED ONCE INJ Last administered on 03/30/22at 12:49; Start 03/30/22 at 12:49; Stop 03/30/22 at 13:07; Status DC Thrombin 20,000 unit STK-MED ONCE TP Last administered on 03/30/22 12:49; Start 03/30/22 at 12:49; Stop 03/30/22 at 13:07; Status DC Gelatin (Gelfoam Size 100) 1 each STK-MED ONCE TP Last administered on 03/30/22 12:49; Start 03/30/22 at 12:49; Stop 03/30/22 at 13:07; Status DC Sodium Chloride 1,000 ml @ 30 mls/hr Q24H IV Last administered on 03/30/22at 12:00; Start 03/30/22 at 12:00 Piperacillin Sod/ Tazobactam Sod 2.25 gm/Sodium Chloride 50 ml @ 100 mls/hr Q8HRS IV Last administered on 03/31/22at 05:35; Start 03/30/22 at 22:00 Polyethylene Glycol (miraLAX PACKET) 17 gm DAILY PO Last administered on 03/31/22at 08:45; Start 03/31/22 at 09:00 Cefazolin Sodium (Ancef) 2 gm STK-MED ONCE IVP ; Start 03/30/22 at 10:00; Stop 03/31/22 at 08:37; Status DC Gelatin (Gelfoam Size 100) 1 each STK-MED ONCE .ROUTE ; Start 03/30/22 at 07:41; Stop 03/31/22 at 09:33; Status DC Bupivacaine HCl/ Epinephrine Bitart (Sensorcain-Epi 0.5% Kit) 30 ml STK-MED ONCE .ROUTE ; Start 03/30/22 at 07:41; Stop 03/31/22 at 09:33; Status DC Cellulose (Surgicel Hemostat 4x8) 1 each STK-MED ONCE .ROUTE ; Start 03/30/22 at 07:41; Stop 03/31/22 at 09:33; Status DC Thrombin 20,000 unit STK-MED ONCE TP ; Start 03/30/22 at 07:42; Stop 03/31/22 at 09:33; Status DC Propofol (Diprivan) 200 mg STK-MED ONCE IV ; Start 03/30/22 at 08:48; Stop 03/31/22 at 09:37; Status DC Lidocaine HCl (Lidocaine Pf 2% Vial) 5 ml STK-MED ONCE .ROUTE ; Start 03/30/22 at 08:48; Stop 03/31/22 at 09:37; Status DC Ondansetron HCl (Zofran) 4 mg STK-MED ONCE .ROUTE ; Start 03/30/22 at 08:48; Stop 03/31/22 at 09:37; Status DC Glycopyrrolate (Robinul) 1 mg STK-MED ONCE .ROUTE ; Start 03/30/22 at 08:48; Stop 03/31/22 at 09:37; Status DC Dexamethasone Sodium Phosphate (Decadron) 4 mg STK-MED ONCE .ROUTE ; Start 03/30/22 at 08:48; Stop 03/31/22 at 09:37; Status DC Sevoflurane (Ultane) 60 ml STK-MED ONCE IH ; Start 03/30/22 at 08:48; Stop 03/31/22 at 09:37; Status DC Fentanyl Citrate (Fentanyl 2ml Vial) 100 mcg STK-MED ONCE .ROUTE ; Start 03/30/22 at 08:48; Stop 03/31/22 at 09:37; Status DC Rocuronium [place] (Zemuron) 50 mg STK-MED ONCE .ROUTE ; Start 03/30/22 at 08:48; Stop 03/31/22 at 09:37; Status DC Neostigmine [place] (Neostigmine Methylsulfate) 5 mg STK-MED ONCE .ROUTE ; Start 03/30/22 at 08:48; Stop 03/31/22 at 09:37; Status DC Phenylephrine HCl (Fam-Synephrine Inj) 10 mg STK-MED ONCE .ROUTE ; Start 03/30/22 at 08:54; Stop 03/31/22 at 09:37; Status DC Phenylephrine HCl (PHENYLEPHRINE in 0.9% NACL PF) 1 mg STK-MED ONCE IV ; Start 03/30/22 at 09:49; Stop 03/31/22 at 09:38; Status DC Cefazolin Sodium (Ancef) 1 gm STK-MED ONCE IVP ; Start 03/30/22 at 09:51; Stop 03/31/22 at 09:38; Status DC Vasopressin (Vasostrict) 20 unit STK-MED ONCE .ROUTE ; Start 03/30/22 at 10:28; Stop 03/31/22 at 09:39; Status DC Fentanyl Citrate (Fentanyl 2ml Vial) 100 mcg STK-MED ONCE .ROUTE ; Start 03/30/22 at 10:48; Stop 03/31/22 at 09:39; Status DC Rocuronium [place] (Zemuron) 50 mg STK-MED ONCE .ROUTE ; Start 03/30/22 at 10:57; Stop 03/31/22 at 09:39; Status DC Fentanyl Citrate (Fentanyl 2ml Vial) 100 mcg STK-MED ONCE .ROUTE ; Start 03/30/22 at 14:51; Stop 03/31/22 at 09:40; Status DC Active Scripts Active Reported Oxycodone Hcl 5 Mg Capsule 5 Mg PO PRN Q6HRS PRN Miralax (Polyethylene Glycol 3350) 17 Gm Powd.pack 1 Packet PO DAILY 2 Days dissolve in water Combivent Respimat Inhal (Ipratropium/Albuterol Sulfate) 4 Gm Aer.w.adap 2 Inh IH QID Albuterol Sulfate Neb Soln (Albuterol Sulfate) 0.63 Mg/3 Ml Vial.neb 1 Vial NEB TID Vitals/I & O Vital Sign - Last 24 Hours 03/30/22 03/30/22 03/30/22 03/30/22 14:06 14:06 14:20 14:35 Temp 97.5 97.5 Pulse 68 68 73 Resp 20 20 20 B/P (MAP) 101/62 100/54 132/74 Pulse Ox 100 100 94 O2 Delivery Simple Mask Mask Simple Mask Nasal Cannula O2 Flow Rate 10.0 10.0 10.0 3.0 03/30/22 03/30/22 03/30/22 03/30/22 14:50 15:05 15:07 15:20 Pulse 64 61 62 Resp 20 20 20 20 B/P (MAP) 104/50 100/49 113/51 Pulse Ox 100 94 100 94 O2 Delivery Room Air Nasal Cannula Nasal Cannula Nasal Cannula O2 Flow Rate 3.0 2.0 3.0 03/30/22 03/30/22 03/30/22 03/30/22 15:27 15:35 15:37 15:53 Temp 97.6 97.8 97.6 97.8 Pulse 64 67 Resp 24 B/P (MAP) 111/55 118/58 (78) Pulse Ox 95 99 99 O2 Delivery Nasal Cannula Nasal Cannula Nasal Cannula Nasal Cannula O2 Flow Rate 3.0 3.0 3.0 3.0 03/30/22 03/30/22 03/30/22 03/30/22 15:55 16:00 16:25 17:00 Pulse 63 69 Resp 22 10 21 B/P (MAP) 116/48 (70) 129/57 (81) Pulse Ox 95 99 100 100 O2 Delivery Nasal Cannula Nasal Cannula Nasal Cannula Nasal Cannula O2 Flow Rate 3.0 3.0 3.0 3.0 03/30/22 03/30/22 03/30/22 03/30/22 18:00 19:00 19:30 20:00 Temp 98.5 98.5 Pulse 71 69 75 Resp 11 07 12 B/P (MAP) 128/54 (78) 122/50 (74) 106/44 (64) Pulse Ox 99 98 100 O2 Delivery Nasal Cannula Nasal Cannula Nasal Cannula Nasal Cannula O2 Flow Rate 3.0 3.0 3.0 3.0 03/30/22 03/30/22 03/30/22 03/31/22 21:00 22:00 23:00 00:00 Pulse 74 76 71 Resp 12 12 12 B/P (MAP) 116/50 (72) 122/54 (76) 121/52 (75) Pulse Ox 98 95 97 O2 Delivery Nasal Cannula Nasal Cannula Nasal Cannula Nasal Cannula O2 Flow Rate 3.0 3.0 3.0 3.0 03/31/22 03/31/22 03/31/22 03/31/22 00:01 01:00 02:00 03:00 Temp 99.1 99.1 Pulse 67 66 72 72 Resp 11 07 12 12 B/P (MAP) 111/51 (71) 123/52 (75) 103/55 (71) 109/51 (70) Pulse Ox 96 98 99 99 O2 Delivery Nasal Cannula Nasal Cannula Nasal Cannula Nasal Cannula O2 Flow Rate 3.0 3.0 3.0 3.0 03/31/22 03/31/22 03/31/22 03/31/22 04:00 04:00 05:00 06:00 Temp 98.5 98.5 Pulse 67 65 75 Resp 11 07 12 B/P (MAP) 118/52 (74) 121/56 (77) 140/66 (90) Pulse Ox 94 97 96 O2 Delivery Nasal Cannula Nasal Cannula Nasal Cannula Nasal Cannula O2 Flow Rate 3.0 3.0 3.0 3.0 03/31/22 03/31/22 03/31/22 03/31/22 07:00 08:00 08:00 09:00 Temp 98.0 98.0 Pulse 68 74 72 Resp 14 15 20 B/P (MAP) 108/49 (68) 137/65 (89) 130/60 (83) Pulse Ox 97 94 97 O2 Delivery Nasal Cannula Nasal Cannula Nasal Cannula Nasal Cannula O2 Flow Rate 3.0 3.0 3.0 3.0 03/31/22 03/31/22 03/31/22 10:00 11:00 12:00 Temp 98.8 98.8 Pulse 68 66 68 Resp 17 18 15 B/P (MAP) 110/48 (68) 128/50 (76) 125/60 (81) Pulse Ox 98 100 94 O2 Delivery Nasal Cannula Nasal Cannula Nasal Cannula O2 Flow Rate 3.0 3.0 3.0 Intake and Output 03/30/22 03/30/22 03/31/22 15:00 23:00 07:00 Intake Total 400 ml 300 ml 225 ml Output Total 20 ml 10 ml Balance 380 ml 290 ml 225 ml Justicifation of Admission Dx: Justifications for Admission: Justification of Admission Dx: N/A PRIYANK FONTENOT MD March 31, 2022 12:59
[2022-03-31] MEDS ORDERED: IV NORMAL SALINE 1000ML BAG 1,000 ML IV PRN ×2 (13:00)
[2022-03-31] MEDS ORDERED: LIDOCAINE 1% PF 2 ML VIAL. INJ PRN (13:00)
[2022-03-31] MEDS ORDERED: DIALYSIS PATIENT. MC PRN ×2 (13:00)
--- NOTE | 2022-03-31 13:24 | PDOC ---
PROGRESS NOTES Date of Service DATE: 03/31/22 TIME: 13:21 Subjective Subjective POD #1 S/p craniotomy and evacuation of SDH, right denies headache, just finished eating lunch Objective Objective Vital Signs Date Time Temp Pulse Resp B/P (MAP) Pulse Ox O2 Delivery O2 Flow Rate FiO2 03/31/22 12:00 98.8 68 15 125/60 (81) 94 Nasal Cannula 3.0 98.8 Intake and Output 03/31/22 07:00 Intake Total 925 ml Output Total 30 ml Balance 895 ml Intake Oral 425 ml IV Total 500 ml Drainage Total 10 ml Estimated Blood Loss 20 ml Physical Exam General: Alert, Oriented X3, Cooperative, No acute distress MUSCULOSKELETAL: Other (JOHNSON) Neuro: Normal speech Skin: Other (drain removed without difficulty, gustabo intact, dry, new dressing placed) Assessment Assessment Problems Medical Problems: (1) Subdural hematoma Status: Acute Plan Plan of Care keep in ICU overnight to monitor may be OOB as tolerated D/W RN Comment Review of Relevant I have reviewed the following items arcelia (where applicable) has been applied. Labs Laboratory Tests Test 03/31/22 05:30 White Blood Count 13.2 x10^3/uL (4.0-11.0) Red Blood Count 3.12 x10^6/uL (4.30-5.70) Hemoglobin 8.7 g/dL (13.0-17.5) Hematocrit 26.7 % (39.0-53.0) Mean Corpuscular Volume 85 fL (79-100) Mean Corpuscular Hemoglobin 28 pg (25-35) Mean Corpuscular Hemoglobin Concent 33 g/dL (31-37) Red Cell Distribution Width 13.5 % (11.5-14.5) Platelet Count 242 x10^3/uL (140-400) Neutrophils (%) (Auto) 83 % (31-73) Lymphocytes (%) (Auto) 8 % (24-48) Monocytes (%) (Auto) 7 % (0-9) Eosinophils (%) (Auto) 1 % (0-3) Basophils (%) (Auto) 1 % (0-3) Neutrophils # (Auto) 11.0 x10^3/uL (1.8-7.7) Lymphocytes # (Auto) 1.1 x10^3/uL (1.0-4.8) Monocytes # (Auto) 1.0 x10^3/uL (0.0-1.1) Eosinophils # (Auto) 0.1 x10^3/uL (0.0-0.7) Basophils # (Auto) 0.1 x10^3/uL (0.0-0.2) Sodium Level 133 mmol/L (136-145) Potassium Level 5.5 mmol/L (3.5-5.1) Chloride Level 91 mmol/L (98-107) Carbon Dioxide Level 31 mmol/L (21-32) Anion Gap 11 (6-14) Blood Urea Nitrogen 66 mg/dL (8-26) Creatinine 12.1 mg/dL (0.7-1.3) Estimated GFR (Cockcroft-Gault) 5.1 BUN/Creatinine Ratio 5 (6-20) Glucose Level 94 mg/dL (70-99) Calcium Level 9.3 mg/dL (8.5-10.1) Magnesium Level 2.7 mg/dL (1.8-2.4) Total Bilirubin 0.4 mg/dL (0.2-1.0) Aspartate Amino Transf (AST/SGOT) 8 U/L (15-37) Alanine Aminotransferase (ALT/SGPT) 6 U/L (16-63) Alkaline Phosphatase 60 U/L (46-116) Total Protein 7.2 g/dL (6.4-8.2) Albumin 2.7 g/dL (3.4-5.0) Albumin/Globulin Ratio 0.6 (1.0-1.7) Laboratory Tests Test 03/31/22 05:30 White Blood Count 13.2 x10^3/uL (4.0-11.0) Red Blood Count 3.12 x10^6/uL (4.30-5.70) Hemoglobin 8.7 g/dL (13.0-17.5) Hematocrit 26.7 % (39.0-53.0) Mean Corpuscular Volume 85 fL (79-100) Mean Corpuscular Hemoglobin 28 pg (25-35) Mean Corpuscular Hemoglobin Concent 33 g/dL (31-37) Red Cell Distribution Width 13.5 % (11.5-14.5) Platelet Count 242 x10^3/uL (140-400) Neutrophils (%) (Auto) 83 % (31-73) Lymphocytes (%) (Auto) 8 % (24-48) Monocytes (%) (Auto) 7 % (0-9) Eosinophils (%) (Auto) 1 % (0-3) Basophils (%) (Auto) 1 % (0-3) Neutrophils # (Auto) 11.0 x10^3/uL (1.8-7.7) Lymphocytes # (Auto) 1.1 x10^3/uL (1.0-4.8) Monocytes # (Auto) 1.0 x10^3/uL (0.0-1.1) Eosinophils # (Auto) 0.1 x10^3/uL (0.0-0.7) Basophils # (Auto) 0.1 x10^3/uL (0.0-0.2) Sodium Level 133 mmol/L (136-145) Potassium Level 5.5 mmol/L (3.5-5.1) Chloride Level 91 mmol/L (98-107) Carbon Dioxide Level 31 mmol/L (21-32) Anion Gap 11 (6-14) Blood Urea Nitrogen 66 mg/dL (8-26) Creatinine 12.1 mg/dL (0.7-1.3) Estimated GFR (Cockcroft-Gault) 5.1 BUN/Creatinine Ratio 5 (6-20) Glucose Level 94 mg/dL (70-99) Calcium Level 9.3 mg/dL (8.5-10.1) Magnesium Level 2.7 mg/dL (1.8-2.4) Total Bilirubin 0.4 mg/dL (0.2-1.0) Aspartate Amino Transf (AST/SGOT) 8 U/L (15-37) Alanine Aminotransferase (ALT/SGPT) 6 U/L (16-63) Alkaline Phosphatase 60 U/L (46-116) Total Protein 7.2 g/dL (6.4-8.2) Albumin 2.7 g/dL (3.4-5.0) Albumin/Globulin Ratio 0.6 (1.0-1.7) Medications Current Medications Levetiracetam 100 ml @ 400 mls/hr 1X ONCE IV Last administered on 03/28/22at 17:47; Start 03/28/22 at 17:30; Stop 03/28/22 at 17:44; Status DC Ondansetron HCl (Zofran) 4 mg PRN Q8HRS PRN IVP NAUSEA/VOMITING; Start 03/28/22 at 18:00; Stop 03/29/22 at 17:59; Status DC Cefazolin Sodium 1 gm/Sodium Chloride 1,000 ml @ 1,000 mls/hr 1X ONCE IRR Last administered on 03/30/22at 12:49; Start 03/30/22 at 06:00; Stop 03/30/22 at 06:59; Status DC Fentanyl Citrate (Fentanyl 2ml Vial) 25 mcg PRN Q5MIN PRN IVP MILD PAIN 1-3; Start 03/30/22 at 06:00; Stop 03/31/22 at 05:59; Status DC Fentanyl Citrate (Fentanyl 2ml Vial) 50 mcg PRN Q5MIN PRN IVP MODERATE PAIN 4-6 Last administered on 03/30/22at 15:55; Start 03/30/22 at 06:00; Stop 03/31/22 at 05:59; Status DC Morphine Sulfate (Morphine Sulfate) 1 mg PRN Q10MIN PRN IVP SEVERE PAIN 7-10; Start 03/30/22 at 06:00; Stop 03/31/22 at 05:59; Status DC Ringer's Solution 1,000 ml @ 30 mls/hr Q24H IV ; Start 03/30/22 at 06:00; Stop 03/30/22 at 17:59; Status DC Hydromorphone HCl (Dilaudid) 0.5 mg PRN Q10MIN PRN IVP SEVERE PAIN 7-10, 2nd CHOICE; Start 03/30/22 at 06:00; Stop 03/31/22 at 05:59; Status DC Prochlorperazine Edisylate (Compazine) 5 mg PACU PRN PRN IVP NAUSEA, MRX1; Start 03/30/22 at 06:00; Stop 03/31/22 at 05:59; Status DC Acetaminophen (Tylenol) 650 mg PRN Q6HRS PRN PO MILD PAIN / TEMP > 100.3'F Last administered on 03/29/22at 19:54; Start 03/29/22 at 19:30 Ceftriaxone Sodium (Rocephin) 1 gm Q24H IVP Last administered on 03/30/22at 11:10; Start 03/30/22 at 08:00; Stop 03/30/22 at 15:55; Status DC Sugammadex Sodium (Bridion) 200 mg 1X ONCE IVP ; Start 03/30/22 at 12:45; Stop 03/30/22 at 12:46; Status DC Bupivacaine HCl/ Epinephrine Bitart (Sensorcain-Epi 0.5%-1:376758 Mpf) 30 ml STK-MED ONCE INJ Last administered on 03/30/22at 12:49; Start 03/30/22 at 12:49; Stop 03/30/22 at 13:07; Status DC Thrombin 20,000 unit STK-MED ONCE TP Last administered on 03/30/22at 12:49; Start 03/30/22 at 12:49; Stop 03/30/22 at 13:07; Status DC Gelatin (Gelfoam Size 100) 1 each STK-MED ONCE TP Last administered on 03/30/22at 12:49; Start 03/30/22 at 12:49; Stop 03/30/22 at 13:07; Status DC Sodium Chloride 1,000 ml @ 30 mls/hr Q24H IV Last administered on 03/30/22at 1 2:00; Start 03/30/22 at 12:00 Piperacillin Sod/ Tazobactam Sod 2.25 gm/Sodium Chloride 50 ml @ 100 mls/hr Q8HRS IV Last administered on 03/31/22at 05:35; Start 03/30/22 at 22:00 Polyethylene Glycol (miraLAX PACKET) 17 gm DAILY PO Last administered on 03/31/22 at 08:45; Start 03/31/22 at 09:00 Cefazolin Sodium (Ancef) 2 gm STK-MED ONCE IVP ; Start 03/30/22 at 10:00; Stop 03/31/22 at 08:37; Status DC Gelatin (Gelfoam Size 100) 1 each STK-MED ONCE .ROUTE ; Start 03/30/22 at 07:41; Stop 03/31/22 at 09:33; Status DC Bupivacaine HCl/ Epinephrine Bitart (Sensorcain-Epi 0.5% Kit) 30 ml STK-MED ONCE .ROUTE ; Start 03/30/22 at 07:41; Stop 03/31/22 at 09:33; Status DC Cellulose (Surgicel Hemostat 4x8) 1 each STK-MED ONCE .ROUTE ; Start 03/30/22 at 07:41; Stop 03/31/22 at 09:33; Status DC Thrombin 20,000 unit STK-MED ONCE TP ; Start 03/30/22 at 07:42; Stop 03/31/22 at 09:33; Status DC Propofol (Diprivan) 200 mg STK-MED ONCE IV ; Start 03/30/22 at 08:48; Stop 03/31/22 at 09:37; Status DC Lidocaine HCl (Lidocaine Pf 2% Vial) 5 ml STK-MED ONCE .ROUTE ; Start 03/30/22 at 08:48; Stop 03/31/22 at 09:37; Status DC Ondansetron HCl (Zofran) 4 mg STK-MED ONCE .ROUTE ; Start 03/30/22 at 08:48; Stop 03/31/22 at 09:37; Status DC Glycopyrrolate (Robinul) 1 mg STK-MED ONCE .ROUTE ; Start 03/30/22 at 08:48; Stop 03/31/22 at 09:37; Status DC Dexamethasone Sodium Phosphate (Decadron) 4 mg STK-MED ONCE .ROUTE ; Start 03/30/22 at 08:48; Stop 03/31/22 at 09:37; Status DC Sevoflurane (Ultane) 60 ml STK-MED ONCE IH ; Start 03/30/22 at 08:48; Stop 03/31/22 at 09:37; Status DC Fentanyl Citrate (Fentanyl 2ml Vial) 100 mcg STK-MED ONCE .ROUTE ; Start 03/30/22 at 08:48; Stop 03/31/22 at 09:37; Status DC Rocuronium [place] (Zemuron) 50 mg STK-MED ONCE .ROUTE ; Start 03/30/22 at 08:48; Stop 03/31/22 at 09:37; Status DC Neostigmine [place] (Neostigmine Methylsulfate) 5 mg STK-MED ONCE .ROUTE ; Start 03/30/22 at 08:48; Stop 03/31/22 at 09:37; Status DC Phenylephrine HCl (Fam-Synephrine Inj) 10 mg STK-MED ONCE .ROUTE ; Start 03/30/22 at 08:54; Stop 03/31/22 at 09:37; Status DC Phenylephrine HCl (PHENYLEPHRINE in 0.9% NACL PF) 1 mg STK-MED ONCE IV ; Start 03/30/22 at 09:49; Stop 03/31/22 at 09:38; Status DC Cefazolin Sodium (Ancef) 1 gm STK-MED ONCE IVP ; Start 03/30/22 at 09:51; Stop 03/31/22 at 09:38; Status DC Vasopressin (Vasostrict) 20 unit STK-MED ONCE .ROUTE ; Start 03/30/22 at 10:28; Stop 03/31/22 at 09:39; Status DC Fentanyl Citrate (Fentanyl 2ml Vial) 100 mcg STK-MED ONCE .ROUTE ; Start 03/30/22 at 10:48; Stop 03/31/22 at 09:39; Status DC Rocuronium [place] (Zemuron) 50 mg STK-MED ONCE .ROUTE ; Start 03/30/22 at 10:57; Stop 03/31/22 at 09:39; Status DC Fentanyl Citrate (Fentanyl 2ml Vial) 100 mcg STK-MED ONCE .ROUTE ; Start 03/30/22 at 14:51; Stop 03/31/22 at 09:40; Status DC Sodium Chloride 1,000 ml @ 1,000 mls/hr Q1H PRN IV hypotension; Start 03/31/22 at 13:00; Stop 03/31/22 at 18:59 Sodium Chloride 1,000 ml @ 400 mls/hr Q2H30M PRN IV PATENCY; Start 03/31/22 at 13:00; Stop 04/01/22 at 00:59 Lidocaine HCl (Xylocaine-Mpf 1% 2ml Vial) 2 ml 1X PRN PRN INJ FOR DIALYSIS; Start 03/31/22 at 13:00; Stop 04/01/22 at 12:59 Info (PHARMACY MONITORING -- do not chart) 1 each PRN DAILY PRN MC SEE COMMENTS; Start 03/31/22 at 13:00; Status UNV Info (PHARMACY MONITORING -- do not chart) 1 each PRN DAILY PRN MC SEE COMMENTS; Start 03/31/22 at 13:00 Active Scripts Active Reported Oxycodone Hcl 5 Mg Capsule 5 Mg PO PRN Q6HRS PRN Miralax (Polyethylene Glycol 3350) 17 Gm Powd.pack 1 Packet PO DAILY 2 Days dissolve in water Combivent Respimat Inhal (Ipratropium/Albuterol Sulfate) 4 Gm Aer.w.adap 2 Inh IH QID Albuterol Sulfate Neb Soln (Albuterol Sulfate) 0.63 Mg/3 Ml Vial.neb 1 Vial NEB TID Vitals/I & O Vital Sign - Last 24 Hours 03/30/22 03/30/22 03/30/22 03/30/22 14:06 14:06 14:20 14:35 Temp 97.5 97.5 Pulse 68 68 73 Resp 20 20 20 B/P (MAP) 101/62 100/54 132/74 Pulse Ox 100 100 94 O2 Delivery Simple Mask Mask Simple Mask Nasal Cannula O2 Flow Rate 10.0 10.0 10.0 3.0 03/30/22 03/30/22 03/30/22 03/30/22 14:50 15:05 15:07 15:20 Pulse 64 61 62 Resp 20 20 20 20 B/P (MAP) 104/50 100/49 113/51 Pulse Ox 100 94 100 94 O2 Delivery Room Air Nasal Cannula Nasal Cannula Nasal Cannula O2 Flow Rate 3.0 2.0 3.0 03/30/22 03/30/22 03/30/22 03/30/22 15:27 15:35 15:37 15:53 Temp 97.6 97.8 97.6 97.8 Pulse 64 67 Resp 20 24 B/P (MAP) 111/55 118/58 (78) Pulse Ox 95 99 99 O2 Delivery Nasal Cannula Nasal Cannula Nasal Cannula Nasal Cannula O2 Flow Rate 3.0 3.0 3.0 3.0 03/30/22 03/30/22 03/30/22 03/30/22 15:55 16:00 16:25 17:00 Pulse 63 69 Resp 22 10 21 B/P (MAP) 116/48 (70) 129/57 (81) Pulse Ox 95 99 100 100 O2 Delivery Nasal Cannula Nasal Cannula Nasal Cannula Nasal Cannula O2 Flow Rate 3.0 3.0 3.0 3.0 03/30/22 03/30/22 03/30/22 03/30/22 18:00 19:00 19:30 20:00 Temp 98.5 98.5 Pulse 71 69 75 Resp 12 12 12 B/P (MAP) 128/54 (78) 122/50 (74) 106/44 (64) Pulse Ox 99 98 100 O2 Delivery Nasal Cannula Nasal Cannula Nasal Cannula Nasal Cannula O2 Flow Rate 3.0 3.0 3.0 3.0 03/30/22 03/30/22 03/30/22 03/31/22 21:00 22:00 23:00 00:00 Pulse 74 76 71 Resp 11 07 12 B/P (MAP) 116/50 (72) 122/54 (76) 121/52 (75) Pulse Ox 98 95 97 O2 Delivery Nasal Cannula Nasal Cannula Nasal Cannula Nasal Cannula O2 Flow Rate 3.0 3.0 3.0 3.0 03/31/22 03/31/22 03/31/22 03/31/22 00:01 01:00 02:00 03:00 Temp 99.1 99.1 Pulse 67 66 72 72 Resp 11 07 12 12 B/P (MAP) 111/51 (71) 123/52 (75) 103/55 (71) 109/51 (70) Pulse Ox 96 98 99 99 O2 Delivery Nasal Cannula Nasal Cannula Nasal Cannula Nasal Cannula O2 Flow Rate 3.0 3.0 3.0 3.0 03/31/22 03/31/22 03/31/22 03/31/22 04:00 04:00 05:00 06:00 Temp 98.5 98.5 Pulse 67 65 75 Resp 11 07 12 B/P (MAP) 118/52 (74) 121/56 (77) 140/66 (90) Pulse Ox 94 97 96 O2 Delivery Nasal Cannula Nasal Cannula Nasal Cannula Nasal Cannula O2 Flow Rate 3.0 3.0 3.0 3.0 03/31/22 03/31/22 03/31/22 03/31/22 07:00 08:00 08:00 09:00 Temp 98.0 98.0 Pulse 68 74 72 Resp 14 15 20 B/P (MAP) 108/49 (68) 137/65 (89) 130/60 (83) Pulse Ox 97 94 97 O2 Delivery Nasal Cannula Nasal Cannula Nasal Cannula Nasal Cannula O2 Flow Rate 3.0 3.0 3.0 3.0 03/31/22 03/31/22 03/31/22 10:00 11:00 12:00 Temp 98.8 98.8 Pulse 68 66 68 Resp 17 18 15 B/P (MAP) 110/48 (68) 128/50 (76) 125/60 (81) Pulse Ox 98 100 94 O2 Delivery Nasal Cannula Nasal Cannula Nasal Cannula O2 Flow Rate 3.0 3.0 3.0 Intake and Output 03/30/22 03/30/22 03/31/22 15:00 23:00 07:00 Intake Total 400 ml 300 ml 225 ml Output Total 20 ml 10 ml Balance 380 ml 290 ml 225 ml Justifications for Admission Other Justification RAFAEL MAHONEY MD March 31, 2022 13:24
[2022-03-31 14:27] LABS: ALBUM 3.3 g/dL (2.9-4.4); ALPHA 1 0.3 g/dL (0.0-0.4); ALPHA 2 1.1 g/dL (0.4-1.0); BETA 0.8 g/dL (0.7-1.3); GAMMA 1.3 g/dL (0.4-1.8); PROTEIN TOTAL 6.8 g/dL (6.0-8.5); SPEP AG RATIO 0.9 (0.7-1.7)
[2022-03-31] MEDS ORDERED: SODIUM POLYSTYRENE SULFON/SORB 15 GM/60 ML ORAL.SUSP. PO ONE ×2 (14:30→14:45)
[2022-03-31] MEDS ORDERED: BISACODYL 5 MG TABLET.DR. PO PRN (16:45)
[2022-03-31 21:08] LABS: ANA INTERP Negative (.)
--- NOTE | 2022-03-31 21:30 | NUR ---
Starting at approximately 2030 patient with frequent pvcs in and out of a trigemeny pattern. patient also endorsed some shortness of breath but denied it was any worse than normal. Dr. Covarrubias paged at [phone] and alerted of this finding. Orders given for BMP, Troponin, EKG, and cardiology consult.
--- NOTE | 2022-03-31 21:58 | EKG ---
[facility] [address] [place] [address] Test Date: 2022-03-31 Test Time: 21:57:09 Pat Name: SIA MONCADA Department: Room: [facility] 1 Gender: M Tennis Director: EK : 1955 Requested By: ARIEL BARRERA Order Number: [id number] Reading MD: Kevin Mcintyre MD Measurements Intervals [place] Rate: 92 P: 75 AK: 166 QRS: -64 QRSD: 76 T: 51 QT: 332 QTc: 415 Interpretive Statements SINUS RHYTHM VENTRICULAR PREMATURE COMPLEX(ES) Electronically Signed On 04-04-2022 9:03:20 CDT by Kevin Mcintyre MD
[2022-03-31 22:02] LABS: CREATININE 5.2 mg/dL (0.7-1.3); GFR 13.4; POTASSIUM 4.3 mmol/L (3.5-5.1)
[2022-04-01] VITALS (17 sets, daily range): BP systolic 98–147; BP diastolic 59–80
[2022-04-01] MEDS: PIPERACILLIN/TAZOBACTAM 2.25 GM in IV NORMAL SALINE 50ML 50 ML IV SCH ×2 (00:27→06:19)
[2022-04-01 05:14] LABS: CALCIUM 9.9 mg/dL (8.5-10.1); GFR 11.4; POTASSIUM 5.5 mmol/L (3.5-5.1)
[2022-04-01] MEDS: POLYETHYLENE GLYCOL 3350 17 GM PACKET. PO SCH (07:22)
[2022-04-01] MEDS ORDERED: IV NORMAL SALINE 1000ML BAG 1,000 ML IV PRN ×2 (07:30)
[2022-04-01] MEDS ORDERED: ALBUMIN HUMAN 25% 200 ML IV PRN (07:30)
[2022-04-01] MEDS ORDERED: DIALYSIS PATIENT. MC PRN ×2 (07:30)
--- NOTE | 2022-04-01 08:19 | PDOC2 ---
JULITO PARRA JAVA DESIGNER 04/01/22 0819: CARDIAC CONSULT DATE OF CONSULT Date of Consult DATE: 04/01/22 TIME: 08:07 REASON FOR CONSULT Reason for Consult: Multiple PVCs REFERRING PHYSICIAN Referring Physician: Satish SOURCE Source: Chart review HISTORY OF PRESENT ILLNESS HISTORY OF PRESENT ILLNESS This is a 66 yo male admitted for weakness. His weakness is on his legs. He had a fall about 2 weeks ago to which he hit his head on the ground and then fell again upright landing to his left but did not hit his head as he braced his head with his left arm. Further imaging revealed bilateral subdural hematoma with m ass effect. He then had a craniotomy on 03/30 for evacuation. He is a resident of a [facility] with hx of schizophrenia. In ICU he has been noted with multiple ventricular ectopies, PVCs hence this consult. No chest pain or SOA or palpitations.. No known hx of CAD or arrhythmia PAST MEDICAL HISTORY Cardiovascular: HTN Pulmonary: Asthma Psych: Anxiety, Depression, Schizophrenia Renal/: Chronic renal failure PAST SURGICAL HISTORY Past Surgical History: Other (LUE dialysis fistula) FAMILY HISTORY Family History noncontributory to CV SOCIAL HISTORY Smoke: <1 pack per day ALCOHOL: none Drugs: None Lives: [facility] CURRENT MEDICATIONS CURRENT MEDICATIONS Current Medications Medications (Trade) Dose Ordered Sig/Cherelle Route PRN Reason Start Time Stop Time Status Last Admin Dose Admin Polyethylene Glycol (miraLAX PACKET) 17 gm DAILY PO 03/31/22 09:00 03/31/22 08:45 ALLERGIES ALLERGIES: Coded Allergies: chlorpromazine (Verified Adverse Reaction, Intermediate, dizziness, n/v, 03/30/22) ROS Review of System 14 point ROS evaluated with pertinent positives noted per HPI PHYSICAL EXAM General: Alert, Oriented X3, Cooperative, No acute distress HEENT: Atraumatic, Mucous membr. moist/pink, Other (Right parietal craniotomy dressing intact and dry. ) Lungs: Clear to auscultation, Normal air movement Heart: Regular rate (SR with PACs), Normal S1, Normal S2, No murmurs Abdomen: Soft, No tenderness Extremities: No cyanosis, No edema Skin: No breakdown, No significant lesion Neuro: Normal speech, Sensation intact Psych/Mental Status: Mental status NL, Mood NL MUSCULOSKELETAL: Osteoarthritic changes both hands VITALS/I&O VITALS/I&O: Vital Signs Date Time Temp Pulse Resp B/P (MAP) Pulse Ox O2 Delivery O2 Flow Rate FiO2 04/01/22 08:00 98.6 71 16 112/69 (83) 99 Nasal Cannula 4.0 98.6 I & O 03/31/22 03/31/22 04/01/22 15:00 23:00 07:00 Intake Total 1150 ml 830 ml 400 ml Balance 1150 ml 830 ml 400 ml LABS Lab: Laboratory Tests Test 03/31/22 21:40 04/01/22 04:00 Sodium Level 140 mmol/L (136-145) 138 mmol/L (136-145) Potassium Level 4.3 mmol/L (3.5-5.1) # 5.5 mmol/L (3.5-5.1) #H Chloride Level 98 mmol/L (98-107) 97 mmol/L (98-107) L Carbon Dioxide Level 34 mmol/L (21-32) H 33 mmol/L (21-32) H Anion Gap 8 (6-14) 8 (6-14) Blood Urea Nitrogen 26 mg/dL (8-26) # 34 mg/dL (8-26) H Creatinine 5.2 mg/dL (0.7-1.3) H 6.0 mg/dL (0.7-1.3) H Estimated GFR (Cockcroft-Gault) 13.4 11.4 Glucose Level 129 mg/dL (70-99) H 91 mg/dL (70-99) Calcium Level 9.0 mg/dL (8.5-10.1) 9.9 mg/dL (8.5-10.1) Magnesium Level 2.1 mg/dL (1.8-2.4) Troponin I High Sensitivity 15 ng/L (4-75) Laboratory Tests 03/31/22 21:40 04/01/22 04:00 ASSESSMENT/PLAN ASSESSMENT/PLAN 1. Acute on chronic bilateral subdural hematoma 2. S/P right central craniotomy with evacuation of subdural hematoma and placement of drain POD#2 3. Arrhythmia: SR with PACs. reported frequent PVCs but very low burden overnight. Reported salvos of PVC could be related to recent SDH with mass effect. 4. ESRD with mild hyperkalemia 5. HTN: controlled 6. Hx of schizophrenia 7. Anemia of chronic disease 8. Traumatic fall: fell 2 weeks ago and 4 days ago 9. Tobacco abuse Recommendations 1. Baseline TTE 2. Continue post op care. 3. Fluid off loading per HD LAURIE PEREIRA MD 04/01/22 1538: CARDIAC CONSULT ASSESSMENT/PLAN ASSESSMENT/PLAN Patient seen and examined. Agree with DEVULCANIZER TENDER's assessment and plan. s/p craniotomy for evacuation of subdural hematoma -continue postop care per NS team Telemetry with PACs and PVCs noted. Check 2D echo to assess LV systolic function. Continue fluid removal with hemodialysis per nephrology team. Thank you for your consultation JULITO PARRA APRN April 01, 2022 08:19 LAURIE PEREIRA MD April 01, 2022 15:38
--- NOTE | 2022-04-01 09:08 | PDOC ---
DATE OF SERVICE DATE: 04/01/22 TIME: 09:07 SUBJECTIVE ROS States feeling good. No complaints . Denies N/V. No headache No SOB OBJECTIVE Vital Signs Vital Signs Date Time Temp Pulse Resp B/P (MAP) Pulse Ox O2 Delivery O2 Flow Rate FiO2 04/01/22 09:00 75 16 124/75 (91) 98 Nasal Cannula 4.0 04/01/22 08:00 98.6 98.6 I & 0 Intake and Output0 04/01/22 07:00 Intake Total 2380 ml Balance 2380 ml Intake Oral 2330 ml IV Total 50 ml # Bowel Movements 1 PHYSICAL EXAM Physical Exam General: no acute distress, dressing on his right scalp HEENT:OM moist ,normocephalic andatraumatic. Neck:Supple Lungs CTA , Non labored, On RA CV S1 s2 Abd soft, NT BS + Ext No LE edema Neuro- Defer to Neurologist . Speech clear, Moving all extremities Psych Cooperative No Clements, No CVA or SP tenderness DIAGNOSIS/ASSESSMENT Assessment & Plan ESRD MWF @ [facility] Seen during dialysis, tolerating well. Continue as ordered. Ethan WELSH No significant IDWG Hyperkalemia- mild , dialysis today Bilateral subdural hematomas, chronic and acute, no obvious trauma, patient is not on anticoagulation. S/P evacuation Hypotension -BP's better Anemia - Monitor, drop in Hgb since admission . Defer to Primary COMMENT/RELEVANT DATA Meds Current Medications Medications (Trade) Dose Ordered Sig/Cherelle Start Time Stop Time Status Last Admin Dose Admin Acetaminophen (Tylenol) 650 mg PRN Q6HRS PRN 03/29/22 19:30 03/29/22 19:54 650 MG Albumin Human 200 ml @ 200 mls/hr 1X PRN PRN 04/01/22 07:30 04/01/22 13:29 Bisacodyl (Dulcolax Tab) 5 mg PRN DAILY PRN 03/31/22 16:45 Bupivacaine HCl/ Epinephrine Bitart (Sensorcain-Epi 0.5% Kit) 30 ml STK-MED ONCE 03/30/22 07:41 03/31/22 09:33 DC Bupivacaine HCl/ Epinephrine Bitart (Sensorcain-Epi 0.5%-1:153199 Mpf) 30 ml STK-MED ONCE 03/30/22 12:49 03/30/22 13:07 DC 03/30/22 12:49 5 ML Cefazolin Sodium (Ancef) 1 gm STK-MED ONCE 03/30/22 09:51 03/31/22 09:38 DC Cefazolin Sodium 1 gm/Sodium Chloride 1,000 ml @ 1,000 mls/hr 1X ONCE 03/30/22 06:00 03/30/22 06:59 DC 03/30/22 12:49 Ceftriaxone Sodium (Rocephin) 1 gm Q24H 03/30/22 08:00 03/30/22 15:55 DC 03/30/22 11:10 1 GM Cellulose (Surgicel Hemostat 4x8) 1 each STK-MED ONCE 03/30/22 07:41 03/31/22 09:33 DC Dexamethasone Sodium Phosphate (Decadron) 4 mg STK-MED ONCE 03/30/22 08:48 03/31/22 09:37 DC Fentanyl Citrate (Fentanyl 2ml Vial) 100 mcg STK-MED ONCE 03/30/22 14:51 03/31/22 09:40 DC Gelatin (Gelfoam Size 100) 1 each STK-MED ONCE 03/30/22 07:41 03/31/22 09:33 DC Glycopyrrolate (Robinul) 1 mg STK-MED ONCE 03/30/22 08:48 03/31/22 09:37 DC Hydromorphone HCl (Dilaudid) 0.5 mg PRN Q10MIN PRN 03/30/22 06:00 03/31/22 05:59 DC Info (PHARMACY MONITORING -- do not chart) 1 each PRN DAILY PRN 04/01/22 07:30 Levetiracetam 100 ml @ 400 mls/hr 1X ONCE 03/28/22 17:30 03/28/22 17:44 DC 03/28/22 17:47 400 MLS/HR Lidocaine HCl (Lidocaine Pf 2% Vial) 5 ml STK-MED ONCE 03/30/22 08:48 03/31/22 09:37 DC Lidocaine HCl (Xylocaine-Mpf 1% 2ml Vial) 2 ml 1X PRN PRN 03/31/22 13:00 04/01/22 12:59 Morphine Sulfate (Morphine Sulfate) 1 mg PRN Q10MIN PRN 03/30/22 06:00 03/31/22 05:59 DC Neostigmine [place] (Neostigmine Methylsulfate) 5 mg STK-MED ONCE 03/30/22 08:48 03/31/22 09:37 DC Ondansetron HCl (Zofran) 4 mg STK-MED ONCE 03/30/22 08:48 03/31/22 09:37 DC Phenylephrine HCl (Fam-Synephrine Inj) 10 mg STK-MED ONCE 03/30/22 08:54 03/31/22 09:37 DC Phenylephrine HCl (PHENYLEPHRINE in 0.9% NACL PF) 1 mg STK-MED ONCE 03/30/22 09:49 03/31/22 09:38 DC Piperacillin Sod/ Tazobactam Sod 2.25 gm/Sodium Chloride 50 ml @ 100 mls/hr Q8HRS 03/30/22 22:00 04/01/22 06:19 100 MLS/HR Polyethylene Glycol (miraLAX PACKET) 17 gm DAILY 03/31/22 09:00 03/31/22 08:45 17 GM Prochlorperazine Edisylate (Compazine) 5 mg PACU PRN PRN 03/30/22 06:00 03/31/22 05:59 DC Propofol (Diprivan) 200 mg STK-MED ONCE 03/30/22 08:48 03/31/22 09:37 DC Ringer's Solution 1,000 ml @ 30 mls/hr Q24H 03/30/22 06:00 03/30/22 17:59 DC Rocuronium [place] (Zemuron) 50 mg STK-MED ONCE 03/30/22 10:57 03/31/22 09:39 DC Sevoflurane (Ultane) 60 ml STK-MED ONCE 03/30/22 08:48 03/31/22 09:37 DC Sodium Polystyrene Sulfonate (Kayexalate) 15 gm 1X ONCE 03/31/22 14:45 03/31/22 16:32 DC Sodium Chloride 1,000 ml @ 400 mls/hr Q2H30M PRN 04/01/22 07:30 04/01/22 19:29 Sugammadex Sodium (Bridion) 200 mg 1X ONCE 03/30/22 12:45 03/30/22 12:46 DC Thrombin 20,000 unit STK-MED ONCE 03/30/22 07:42 03/31/22 09:33 DC Vasopressin (Vasostrict) 20 unit STK-MED ONCE 03/30/22 10:28 03/31/22 09:39 DC Lab Laboratory Tests Test 03/31/22 21:40 04/01/22 04:00 Sodium Level 140 mmol/L (136-145) 138 mmol/L (136-145) Potassium Level 4.3 mmol/L (3.5-5.1) 5.5 mmol/L (3.5-5.1) Chloride Level 98 mmol/L (98-107) 97 mmol/L (98-107) Carbon Dioxide Level 34 mmol/L (21-32) 33 mmol/L (21-32) Anion Gap 8 (6-14) 8 (6-14) Blood Urea Nitrogen 26 mg/dL (8-26) 34 mg/dL (8-26) Creatinine 5.2 mg/dL (0.7-1.3) 6.0 mg/dL (0.7-1.3) Estimated GFR (Cockcroft-Gault) 13.4 11.4 Glucose Level 129 mg/dL (70-99) 91 mg/dL (70-99) Calcium Level 9.0 mg/dL (8.5-10.1) 9.9 mg/dL (8.5-10.1) Magnesium Level 2.1 mg/dL (1.8-2.4) Troponin I High Sensitivity 15 ng/L (4-75) Results All relevant outside records, renal labs, imaging studies, telemetry/EKG's were reviewed. Justicifation of Admission Dx: Justifications for Admission: Justification of Admission Dx: N/A JOAN NESBITT MD April 01, 2022 09:08
--- NOTE | 2022-04-01 09:31 | PDOC ---
PROGRESS NOTES Date of Service DATE: 04/01/22 TIME: 09:29 Assessment Problems Medical Problems: (1) Subdural hematoma Status: Acute Fever 03/29 night, sedimentation rate 75, pulmonary infiltrates, ID seeing patient Status-post on 03/30 right central craniotomy with evacuation of subdural hematoma and placement of drain. Bilateral subdural hematomas, chronic and acute, no obvious trauma, patient is not on anticoagulation. Stable on second head CT 03/29 Exam points to peripheral neuropathy, need to rule out diabetes, connective tissue disease, thyroid abnormalities, vitamin deficiencies, dysproteinemias. All labs for causes of neuropathy are negative except for the sedimentation rate. 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 Oriented to time, place and person. PERRL. EOMI. CN: no focal findings. Muscle tone: normal. Muscle strength: 4/5 arms, 4/5 right leg, 3/5 left leg DTR: 0+ Plantar reflex: Flexor Gait: not examined in bed. Sensory exam: Stocking loss. No cerebellar signs elicited. Review of Relevant I have reviewed the following items arcelia (where applicable) has been applied. Labs Laboratory Tests Test 03/31/22 05:30 03/31/22 21:40 04/01/22 04:00 White Blood Count 13.2 x10^3/uL (4.0-11.0) Red Blood Count 3.12 x10^6/uL (4.30-5.70) Hemoglobin 8.7 g/dL (13.0-17.5) Hematocrit 26.7 % (39.0-53.0) Mean Corpuscular Volume 85 fL (79-100) Mean Corpuscular Hemoglobin 28 pg (25-35) Mean Corpuscular Hemoglobin Concent 33 g/dL (31-37) Red Cell Distribution Width 13.5 % (11.5-14.5) Platelet Count 242 x10^3/uL (140-400) Neutrophils (%) (Auto) 83 % (31-73) Lymphocytes (%) (Auto) 8 % (24-48) Monocytes (%) (Auto) 7 % (0-9) Eosinophils (%) (Auto) 1 % (0-3) Basophils (%) (Auto) 1 % (0-3) Neutrophils # (Auto) 11.0 x10^3/uL (1.8-7.7) Lymphocytes # (Auto) 1.1 x10^3/uL (1.0-4.8) Monocytes # (Auto) 1.0 x10^3/uL (0.0-1.1) Eosinophils # (Auto) 0.1 x10^3/uL (0.0-0.7) Basophils # (Auto) 0.1 x10^3/uL (0.0-0.2) Sodium Level 133 mmol/L (136-145) 140 mmol/L (136-145) 138 mmol/L (136-145) Potassium Level 5.5 mmol/L (3.5-5.1) 4.3 mmol/L (3.5-5.1) 5.5 mmol/L (3.5-5.1) Chloride Level 91 mmol/L (98-107) 98 mmol/L (98-107) 97 mmol/L (98-107) Carbon Dioxide Level 31 mmol/L (21-32) 34 mmol/L (21-32) 33 mmol/L (21-32) Anion Gap 11 (6-14) 8 (6-14) 8 (6-14) Blood Urea Nitrogen 66 mg/dL (8-26) 26 mg/dL (8-26) 34 mg/dL (8-26) Creatinine 12.1 mg/dL (0.7-1.3) 5.2 mg/dL (0.7-1.3) 6.0 mg/dL (0.7-1.3) Estimated GFR (Cockcroft-Gault) 5.1 13.4 11.4 BUN/Creatinine Ratio 5 (6-20) Glucose Level 94 mg/dL (70-99) 129 mg/dL (70-99) 91 mg/dL (70-99) Calcium Level 9.3 mg/dL (8.5-10.1) 9.0 mg/dL (8.5-10.1) 9.9 mg/dL (8.5-10.1) Magnesium Level 2.7 mg/dL (1.8-2.4) 2.1 mg/dL (1.8-2.4) Total Bilirubin 0.4 mg/dL (0.2-1.0) Aspartate Amino Transf (AST/SGOT) 8 U/L (15-37) Alanine Aminotransferase (ALT/SGPT) 6 U/L (16-63) Alkaline Phosphatase 60 U/L (46-116) Total Protein 7.2 g/dL (6.4-8.2) Albumin 2.7 g/dL (3.4-5.0) Albumin/Globulin Ratio 0.6 (1.0-1.7) Troponin I High Sensitivity 15 ng/L (4-75) Laboratory Tests Test 03/31/22 21:40 04/01/22 04:00 Sodium Level 140 mmol/L (136-145) 138 mmol/L (136-145) Potassium Level 4.3 mmol/L (3.5-5.1) 5.5 mmol/L (3.5-5.1) Chloride Level 98 mmol/L (98-107) 97 mmol/L (98-107) Carbon Dioxide Level 34 mmol/L (21-32) 33 mmol/L (21-32) Anion Gap 8 (6-14) 8 (6-14) Blood Urea Nitrogen 26 mg/dL (8-26) 34 mg/dL (8-26) Creatinine 5.2 mg/dL (0.7-1.3) 6.0 mg/dL (0.7-1.3) Estimated GFR (Cockcroft-Gault) 13.4 11.4 Glucose Level 129 mg/dL (70-99) 91 mg/dL (70-99) Calcium Level 9.0 mg/dL (8.5-10.1) 9.9 mg/dL (8.5-10.1) Magnesium Level 2.1 mg/dL (1.8-2.4) Troponin I High Sensitivity 15 ng/L (4-75) Medications Current Medications Levetiracetam 100 ml @ 400 mls/hr 1X ONCE IV Last administered on 03/28/22at 17:47; Start 03/28/22 at 17:30; Stop 03/28/22 at 17:44; Status DC Ondansetron HCl (Zofran) 4 mg PRN Q8HRS PRN IVP NAUSEA/VOMITING; Start 03/28/22 at 18:00; Stop 03/29/22 at 17:59; Status DC Cefazolin Sodium 1 gm/Sodium Chloride 1,000 ml @ 1,000 mls/hr 1X ONCE IRR Last administered on 03/30/22at 12:49; Start 03/30/22 at 06:00; Stop 03/30/22 at 06:59; Status DC Fentanyl Citrate (Fentanyl 2ml Vial) 25 mcg PRN Q5MIN PRN IVP MILD PAIN 1-3; Start 03/30/22 at 06:00; Stop 03/31/22 at 05:59; Status DC Fentanyl Citrate (Fentanyl 2ml Vial) 50 mcg PRN Q5MIN PRN IVP MODERATE PAIN 4-6 Last administered on 03/30/22at 15:55; Start 03/30/22 at 06:00; Stop 03/31/22 at 05:59; Status DC Morphine Sulfate (Morphine Sulfate) 1 mg PRN Q10MIN PRN IVP SEVERE PAIN 7-10; Start 03/30/22 at 06:00; Stop 03/31/22 at 05:59; Status DC Ringer's Solution 1,000 ml @ 30 mls/hr Q24H IV ; Start 03/30/22 at 06:00; Stop 03/30/22 at 17:59; Status DC Hydromorphone HCl (Dilaudid) 0.5 mg PRN Q10MIN PRN IVP SEVERE PAIN 7-10, 2nd CHOICE; Start 03/30/22 at 06:00; Stop 03/31/22 at 05:59; Status DC Prochlorperazine Edisylate (Compazine) 5 mg PACU PRN PRN IVP NAUSEA, MRX1; Start 03/30/22 at 06:00; Stop 03/31/22 at 05:59; Status DC Acetaminophen (Tylenol) 650 mg PRN Q6HRS PRN PO MILD PAIN / TEMP > 100.3'F Last administered on 03/29/22at 19:54; Start 03/29/22 at 19:30 Ceftriaxone Sodium (Rocephin) 1 gm Q24H IVP Last administered on 03/30/22at 11:10; Start 03/30/22 at 08:00; Stop 03/30/22 at 15:55; Status DC Sugammadex Sodium (Bridion) 200 mg 1X ONCE IVP ; Start 03/30/22 at 12:45; Stop 03/30/22 at 12:46; Status DC Bupivacaine HCl/ Epinephrine Bitart (Sensorcain-Epi 0.5%-1:484165 Mpf) 30 ml STK-MED ONCE INJ Last administered on 03/30/22at 12:49; Start 03/30/22 at 12:49; Stop 03/30/22 at 13:07; Status DC Thrombin 20,000 unit STK-MED ONCE TP Last administered on 03/30/22at 12:49; Start 03/30/22 at 12:49; Stop 03/30/22 at 13:07; Status DC Gelatin (Gelfoam Size 100) 1 each STK-MED ONCE TP Last administered on 03/30/22at 12:49; Start 03/30/22 at 12:49; Stop 03/30/22 at 13:07; Status DC Sodium Chloride 1,000 ml @ 30 mls/hr Q24H IV Last administered on 03/30/22at 12:00; Start 03/30/22 at 12:00; Stop 03/31/22 at 17:52; Status DC Piperacillin Sod/ Tazobactam Sod 2.25 gm/Sodium Chloride 50 ml @ 100 mls/hr Q8H RS IV Last administered on 04/01/22at 06:19; Start 03/30/22 at 22:00 Polyethylene Glycol (miraLAX PACKET) 17 gm DAILY PO Last administered on 03/31/22at 08:45; Start 03/31/22 at 09:00 Cefazolin Sodium (Ancef) 2 gm STK-MED ONCE IVP ; Start 03/30/22 at 10:00; Stop 03/31/22 at 08:37; Status DC Gelatin (Gelfoam Size 100) 1 each STK-MED ONCE .ROUTE ; Start 03/30/22 at 07:41; Stop 03/31/22 at 09:33; Status DC Bupivacaine HCl/ Epinephrine Bitart (Sensorcain-Epi 0.5% Kit) 30 ml STK-MED ONCE .ROUTE ; Start 03/30/22 at 07:41; Stop 03/31/22 at 09:33; Status DC Cellulose (Surgicel Hemostat 4x8) 1 each STK-MED ONCE .ROUTE ; Start 03/30/22 at 07:41; Stop 03/31/22 at 09:33; Status DC Thrombin 20,000 unit STK-MED ONCE TP ; Start 03/30/22 at 07:42; Stop 03/31/22 at 09:33; Status DC Propofol (Diprivan) 200 mg STK-MED ONCE IV ; Start 03/30/22 at 08:48; Stop 03/31/22 at 09:37; Status DC Lidocaine HCl (Lidocaine Pf 2% Vial) 5 ml STK-MED ONCE .ROUTE ; Start 03/30/22 at 08:48; Stop 03/31/22 at 09:37; Status DC Ondansetron HCl (Zofran) 4 mg STK-MED ONCE .ROUTE ; Start 03/30/22 at 08:48; Stop 03/31/22 at 09:37; Status DC Glycopyrrolate (Robinul) 1 mg STK-MED ONCE .ROUTE ; Start 03/30/22 at 08:48; Stop 03/31/22 at 09:37; Status DC Dexamethasone Sodium Phosphate (Decadron) 4 mg STK-MED ONCE .ROUTE ; Start 03/30/22 at 08:48; Stop 03/31/22 at 09:37; Status DC Sevoflurane (Ultane) 60 ml STK-MED ONCE IH ; Start 03/30/22 at 08:48; Stop 03/31/22 at 09:37; Status DC Fentanyl Citrate (Fentanyl 2ml Vial) 100 mcg STK-MED ONCE .ROUTE ; Start 03/30/22 at 08:48; Stop 03/31/22 at 09:37; Status DC Rocuronium [place] (Zemuron) 50 mg STK-MED ONCE .ROUTE ; Start 03/30/22 at 08:48; Stop 03/31/22 at 09:37; Status DC Neostigmine [place] (Neostigmine Methylsulfate) 5 mg STK-MED ONCE .ROUTE ; Start 03/30/22 at 08:48; Stop 03/31/22 at 09:37; Status DC Phenylephrine HCl (Fam-Synephrine Inj) 10 mg STK-MED ONCE .ROUTE ; Start 03/30/22 at 08:54; Stop 03/31/22 at 09:37; Status DC Phenylephrine HCl (PHENYLEPHRINE in 0.9% NACL PF) 1 mg STK-MED ONCE IV ; Start 03/30/22 at 09:49; Stop 03/31/22 at 09:38; Status DC Cefazolin Sodium (Ancef) 1 gm STK-MED ONCE IVP ; Start 03/30/22 at 09:51; Stop 03/31/22 at 09:38; Status DC Vasopressin (Vasostrict) 20 unit STK-MED ONCE .ROUTE ; Start 03/30/22 at 10:28; Stop 03/31/22 at 09:39; Status DC Fentanyl Citrate (Fentanyl 2ml Vial) 100 mcg STK-MED ONCE .ROUTE ; Start 03/30/22 at 10:48; Stop 03/31/22 at 09:39; Status DC Rocuronium [place] (Zemuron) 50 mg STK-MED ONCE .ROUTE ; Start 03/30/22 at 10:57; Stop 03/31/22 at 09:39; Status DC Fentanyl Citrate (Fentanyl 2ml Vial) 100 mcg STK-MED ONCE .ROUTE ; Start 03/30/22 at 14:51; Stop 03/31/22 at 09:40; Status DC Sodium Chloride 1,000 ml @ 1,000 mls/hr Q1H PRN IV hypotension; Start 03/31/22 at 13:00; Stop 03/31/22 at 18:59; Status DC Sodium Chloride 1,000 ml @ 400 mls/hr Q2H30M PRN IV PATENCY; Start 03/31/22 at 13:00; Stop 04/01/22 at 00:59; Status DC Lidocaine HCl (Xylocaine-Mpf 1% 2ml Vial) 2 ml 1X PRN PRN INJ FOR DIALYSIS; Start 03/31/22 at 13:00; Stop 04/01/22 at 12:59 Info (PHARMACY MONITORING -- do not chart) 1 each PRN DAILY PRN MC SEE COMMENTS; Start 03/31/22 at 13:00; Status UNV Info (PHARMACY MONITORING -- do not chart) 1 each PRN DAILY PRN MC SEE COMMENTS; Start 03/31/22 at 13:00; Status Cancel Sodium Polystyrene Sulfonate (Kayexalate) 15 gm 1X ONCE PO ; Start 03/31/22 at 14:30; Stop 03/31/22 at 14:31; Status DC Sodium Polystyrene Sulfonate (Kayexalate) 15 gm 1X ONCE PO ; Start 03/31/22 at 14:45; Stop 03/31/22 at 16:32; Status DC Bisacodyl (Dulcolax Tab) 5 mg PRN DAILY PRN PO CONSTIPATION; Start 03/31/22 at 16:45 Sodium Chloride 1,000 ml @ 1,000 mls/hr Q1H PRN IV hypotension; Start 04/01/22 at 07:30; Stop 04/01/22 at 13:29 Albumin Human 200 ml @ 200 mls/hr 1X PRN PRN IV Hypotension; Start 04/01/22 at 07:30; Stop 04/01/22 at 13:29 Sodium Chloride 1,000 ml @ 400 mls/hr Q2H30M PRN IV PATENCY; Start 04/01/22 at 07:30; Stop 04/01/22 at 19:29 Info (PHARMACY MONITORING -- do not chart) 1 each PRN DAILY PRN MC SEE COMMENTS; Start 04/01/22 at 07:30; Status UNV Info (PHARMACY MONITORING -- do not chart) 1 each PRN DAILY PRN MC SEE COMMENTS; Start 04/01/22 at 07:30 Active Scripts Active Reported Oxycodone Hcl 5 Mg Capsule 5 Mg PO PRN Q6HRS PRN Miralax (Polyethylene Glycol 3350) 17 Gm Powd.pack 1 Packet PO DAILY 2 Days dissolve in water Combivent Respimat Inhal (Ipratropium/Albuterol Sulfate) 4 Gm Aer.w.adap 2 Inh IH QID Albuterol Sulfate Neb Soln (Albuterol Sulfate) 0.63 Mg/3 Ml Vial.neb 1 Vial NEB TID Vitals/I & O Vital Sign - Last 24 Hours 03/31/22 03/31/22 03/31/22 03/31/22 10:00 11:00 12:00 12:00 Temp 98.8 98.8 Pulse 68 66 68 Resp 17 18 15 B/P (MAP) 110/48 (68) 128/50 (76) 125/60 (81) Pulse Ox 98 100 94 O2 Delivery Nasal Cannula Nasal Cannula Nasal Cannula Nasal Cannula O2 Flow Rate 3.0 3.0 3.0 3.0 03/31/22 03/31/22 03/31/22 03/31/22 13:00 14:00 15:00 16:00 Temp 98.9 98.9 Pulse 72 73 82 80 Resp 18 17 17 17 B/P (MAP) 136/56 (82) 137/57 (83) 144/62 (89) 142/63 (89) Pulse Ox 100 100 100 100 O2 Delivery Nasal Cannula Nasal Cannula Nasal Cannula Nasal Cannula O2 Flow Rate 3.0 3.0 3.0 3.0 03/31/22 03/31/22 03/31/22 03/31/22 16:00 17:00 18:00 19:00 Pulse 91 93 84 Resp 17 17 26 B/P (MAP) 141/71 (94) 141/65 (90) 116/54 (74) Pulse Ox 96 96 90 O2 Delivery Nasal Cannula Nasal Cannula Nasal Cannula Nasal Cannula O2 Flow Rate 3.0 3.0 3.0 3.0 03/31/22 03/31/22 03/31/22 03/31/22 19:37 20:00 21:00 22:00 Temp 100.0 100.0 Pulse 86 92 84 Resp 25 23 21 B/P (MAP) 122/60 (80) 106/54 (71) 104/50 (68) Pulse Ox 100 97 97 O2 Delivery Nasal Cannula Nasal Cannula Nasal Cannula Nasal Cannula O2 Flow Rate 3.0 3.0 3.0 4.0 03/31/22 04/01/22 04/01/22 04/01/22 23:00 00:00 00:00 01:00 Temp 99.8 99.8 Pulse 82 96 82 Resp 20 24 26 B/P (MAP) 98/56 (70) 102/67 (79) 108/64 (79) Pulse Ox 99 97 100 O2 Delivery Nasal Cannula Nasal Cannula Nasal Cannula Nasal Cannula O2 Flow Rate 4.0 3.0 4.0 4.0 04/01/22 04/01/22 04/01/22 04/01/22 02:00 03:00 04:00 04:00 Temp 99.3 99.3 Pulse 76 90 74 Resp 18 36 19 B/P (MAP) 108/65 (79) 119/76 (90) 101/62 (75) Pulse Ox 99 99 100 O2 Delivery Nasal Cannula Nasal Cannula Nasal Cannula Nasal Cannula O2 Flow Rate 4.0 4.0 4.0 4.0 04/01/22 04/01/22 04/01/22 04/01/22 05:00 06:00 07:00 08:00 Pulse 64 74 70 Resp 16 16 18 B/P (MAP) 106/66 (79) 112/71 (85) 98/71 (80) Pulse Ox 100 100 98 O2 Delivery Nasal Cannula Nasal Cannula Nasal Cannula Nasal Cannula O2 Flow Rate 4.0 4.0 4.0 4.0 04/01/22 04/01/22 08:00 09:00 Temp 98.6 98.6 Pulse 71 75 Resp 16 16 B/P (MAP) 112/69 (83) 124/75 (91) Pulse Ox 99 98 O2 Delivery Nasal Cannula Nasal Cannula O2 Flow Rate 4.0 4.0 Intake and Output 03/31/22 03/31/22 04/01/22 15:00 23:00 07:00 Intake Total 1150 ml 830 ml 400 ml Balance 1150 ml 830 ml 400 ml Justicifation of Admission Dx: Justifications for Admission: Justification of Admission Dx: N/A PRIYANK FONTENOT MD April 01, 2022 09:31
--- NOTE | 2022-04-01 10:24 | PDOC ---
[facility] PROGRESS NOTE Date of Service DOS: DATE: 04/01/22 TIME: 10:23 Chief Complaint Chief Complaint Subdural hematoma ESRD on dialysis Asthma Arthritis History of Present Illness History of Present Illness 04/01/2022 Patient seen and examined He is currently on dialysis and doing great Tolerating food His drain is out of his scalp 03/31/2022 Patient seen and examined in the ICU He is postop day 1 subdural hematoma evacuation Has a dressing on his right scalp with a little blood on it Clinically he looks great Discussed with RN Chart reviewed 03/30/2022 Patient seen and examined in the ICU Discussed with RN He is scheduled to go to surgery today for craniotomy and for hematoma evacuation He had a low-grade temp of 101 I called the pharmacy and started empiric Rocephin Currently having some PVCs on the monitor Blood pressure a little low at 88/58 Chart reviewed 03/29/2022 Patient seen and examined in the ICU He is eating breakfast Discussed with case management Discussed with RN Chart reviewed Awaiting further neurosurgical input Vitals/I&O Vitals/I&O: Vital Signs Date Time Temp Pulse Resp B/P (MAP) Pulse Ox O2 Delivery O2 Flow Rate FiO2 04/01/22 10:00 74 18 118/68 (85) 98 Nasal Cannula 4.0 04/01/22 08:00 98.6 98.6 I & O 03/31/22 03/31/22 04/01/22 15:00 23:00 07:00 Intake Total 1150 ml 830 ml 400 ml Balance 1150 ml 830 ml 400 ml Physical Exam Physical Exam: GENERAL: Alert, oriented x 3, lying in bed comfortably, in no acute distress. HEENT: Postoperative dressing with drain in place, dry and intact, pupils equal reactive, no thrush, oral mucosa moist NECK: Supple. LUNGS: Clear bilaterally. No wheezing. HEART: S1, S2. No gallops or murmurs. ABDOMEN: Soft, nontender, nondistended. No rebound or guarding. EXTREMITIES: No edema or cyanosis no Clements in place. MUSCULOSKELETAL: No joint swelling. No decrease in range of motion. CENTRAL NERVOUS SYSTEM: Alert, oriented x 3, grossly nonfocal. PSYCHIATRIC: Cooperative, calm. LINES: looks clean. Left upper extremity AV fistula without complication General: Alert, Oriented X3, Cooperative, No acute distress Heart: Regular rate (SR with PACs), Normal S1, Normal S2, No murmurs Lungs: Clear Abdomen: Soft, No tenderness Extremities: No cyanosis, No edema Skin: No breakdown, No significant lesion Labs Labs: Laboratory Tests Test 03/31/22 21:40 04/01/22 04:00 Sodium Level 140 mmol/L (136-145) 138 mmol/L (136-145) Potassium Level 4.3 mmol/L (3.5-5.1) 5.5 mmol/L (3.5-5.1) Chloride Level 98 mmol/L (98-107) 97 mmol/L (98-107) Carbon Dioxide Level 34 mmol/L (21-32) 33 mmol/L (21-32) Anion Gap 8 (6-14) 8 (6-14) Blood Urea Nitrogen 26 mg/dL (8-26) 34 mg/dL (8-26) Creatinine 5.2 mg/dL (0.7-1.3) 6.0 mg/dL (0.7-1.3) Estimated GFR (Cockcroft-Gault) 13.4 11.4 Glucose Level 129 mg/dL (70-99) 91 mg/dL (70-99) Calcium Level 9.0 mg/dL (8.5-10.1) 9.9 mg/dL (8.5-10.1) Magnesium Level 2.1 mg/dL (1.8-2.4) Troponin I High Sensitivity 15 ng/L (4-75) Assessment and Plan Assessmemt and Plan Problems Medical Problems: (1) Subdural hematoma Status: Acute Postop day 1 subdural hematoma evacuation Fevers Hypotension Weakness ESRD on dialysis Asthma Arthritis Plan Hoping to discharge back to his facility in [place] when okay with infectious disease For now continue the following; Wound care Empiric Rocephin Appreciate subspecialist input Dialysis per nephrology Trend labs Home meds DVT prophylaxis Full code Comment Review of Relevant I have reviewed the following items arcelia (where applicable) has been applied. Justifications for Admission Other Justification ARIEL BARRERA III, DO April 01, 2022 10:24
--- NOTE | 2022-04-01 11:08 | SNU/HH DC ---
DISCHARGE ORDERS DISCHARGE INFORMATION: FINAL DIAGNOSIS Problems Medical Problems: (1) Subdural hematoma Status: Acute CONDITION ON DISCHARGE: Stable CODE STATUS: Code Status: Full [facility]: SNF STAY <30 DAYS: No HOSPICE: HOSPICE: No HOSPICE EVAL & TREAT: No LTAC: ADMIT TO LTAC: No POST DISCHARGE ORDERS: DIET AFTER DISCHARGE: Renal DISCHARGE MEDICATIONS: Home Meds Reported Medications Oxycodone Hcl (OXYCODONE HCL) 5 Mg Capsule, 5 MG PO PRN Q6HRS PRN for PAIN, TAB 0 Refills 03/28/22 Polyethylene Glycol 3350 (MIRALAX) 17 Gm Powd.pack, 1 PACKET PO DAILY for constipation for 2 Days, #2 PACKET 0 Refills dissolve in water 03/28/22 Ipratropium/Albuterol Sulfate (COMBIVENT RESPIMAT INHAL) 4 Gm Aer.w.adap, 2 INH IH QID for asthma, EACH 03/28/22 Albuterol Sulfate (ALBUTEROL SULFATE NEB SOLN) 0.63 Mg/3 Ml Vial.neb, 1 VIAL NEB TID for asthma, #225 ML 03/28/22 ARIEL BARRERA III DO April 01, 2022 11:08
--- NOTE | 2022-04-01 13:33 | PDOC ---
Infectious Disease Note Subjective Subjective Patient without complaints Denies any pain Denies any fever, chills, nausea, vomiting, diarrhea, abdominal pain Awaiting dialysis session later today Father and mother at bedside Discussed with RN Vital Sign Vital Signs Vital Signs Date Time Temp Pulse Resp B/P (MAP) Pulse Ox O2 Delivery O2 Flow Rate FiO2 04/01/22 12:00 Nasal Cannula 4.0 04/01/22 12:00 99.2 93 20 123/75 (91) 99 99.2 Physical Exam PHYSICAL EXAM GENERAL: Alert, oriented x 3, lying in bed comfortably, in no acute distress. HEENT: Postoperative dressing with drain in place, dry and intact, pupils equal reactive, no thrush, oral mucosa moist NECK: Supple. LUNGS: Clear bilaterally. No wheezing. HEART: S1, S2. No gallops or murmurs. ABDOMEN: Soft, nontender, nondistended. No rebound or guarding. EXTREMITIES: No edema or cyanosis no Clements in place. MUSCULOSKELETAL: No joint swelling. No decrease in range of motion. CENTRAL NERVOUS SYSTEM: Alert, oriented x 3, grossly nonfocal. PSYCHIATRIC: Cooperative, calm. LINES: looks clean. Left upper extremity AV fistula without complication Labs Lab Laboratory Tests Test 03/31/22 21:40 04/01/22 04:00 Sodium Level 140 mmol/L (136-145) 138 mmol/L (136-145) Potassium Level 4.3 mmol/L (3.5-5.1) 5.5 mmol/L (3.5-5.1) Chloride Level 98 mmol/L (98-107) 97 mmol/L (98-107) Carbon Dioxide Level 34 mmol/L (21-32) 33 mmol/L (21-32) Anion Gap 8 (6-14) 8 (6-14) Blood Urea Nitrogen 26 mg/dL (8-26) 34 mg/dL (8-26) Creatinine 5.2 mg/dL (0.7-1.3) 6.0 mg/dL (0.7-1.3) Estimated GFR (Cockcroft-Gault) 13.4 11.4 Glucose Level 129 mg/dL (70-99) 91 mg/dL (70-99) Calcium Level 9.0 mg/dL (8.5-10.1) 9.9 mg/dL (8.5-10.1) Magnesium Level 2.1 mg/dL (1.8-2.4) Troponin I High Sensitivity 15 ng/L (4-75) Objective Assessment Fever could be from subdural hematoma,pattern improved History of fall Subdural hematoma status post craniectomy March 30 Hypertension End-stage renal disease on hemodialysis Anxiety and depression History of asthma Pulmonary infiltrates Plan Plan of Care change zosyn to po augmentin Monitor labs and cultures Continue wound care as directed Continue supportive care ROBERT LOPEZ MD April 01, 2022 13:33
--- NOTE | 2022-04-01 13:36 | NUR ---
SS following up with discharge planning. SS reviewed pt chart and discussed with RN. Pt is LTC resident from [facility], ; fax [phone]. Pt had Craniotomy on 03/30/2022. Pt is currently requiring nasal canula oxygen. COVID19 negative. Discharge instructions received and sent to [facility]. Packet placed on chart. Per Purvi JAY, probable discharge back to facility tomorrow. Estelle, , at facility notified. Purvi JAY, notified to contact Estelle over the weekend for transport if discharging this weekend. SS will continue to follow for discharge planning.
[2022-04-01] MEDS: AMOXICILLIN/K CLAV 500/125MG TABLET. PO SCH (14:02)
--- NOTE | 2022-04-01 14:25 | PDOC ---
PROGRESS NOTES Date of Service DATE: 04/01/22 TIME: 14:23 Subjective Subjective POD #2 s/p craniotomy and evacuation of SDH feels good, denies headache Objective Objective Vital Signs Date Time Temp Pulse Resp B/P (MAP) Pulse Ox O2 Delivery O2 Flow Rate FiO2 04/01/22 14:00 86 18 116/68 (84) 98 Nasal Cannula 4.0 04/01/22 12:00 99.2 99.2 Intake and Output 04/01/22 07:00 Intake Total 2380 ml Balance 2380 ml Intake Oral 2330 ml IV Total 50 ml # Bowel Movements 1 Physical Exam General: Alert, Oriented X3, Cooperative, No acute distress Neck: Other (JOHNSON) Neuro: Normal speech Skin: Other (dressing C,D, I) Assessment Assessment Problems Medical Problems: (1) Subdural hematoma Status: Acute Plan Plan of Care OK to transfer to floor PT likely dc tomorrow D/W RN Comment Review of Relevant I have reviewed the following items arcelia (where applicable) has been applied. Labs Laboratory Tests Test 03/31/22 05:30 03/31/22 21:40 04/01/22 04:00 White Blood Count 13.2 x10^3/uL (4.0-11.0) Red Blood Count 3.12 x10^6/uL (4.30-5.70) Hemoglobin 8.7 g/dL (13.0-17.5) Hematocrit 26.7 % (39.0-53.0) Mean Corpuscular Volume 85 fL (79-100) Mean Corpuscular Hemoglobin 28 pg (25-35) Mean Corpuscular Hemoglobin Concent 33 g/dL (31-37) Red Cell Distribution Width 13.5 % (11.5-14.5) Platelet Count 242 x10^3/uL (140-400) Neutrophils (%) (Auto) 83 % (31-73) Lymphocytes (%) (Auto) 8 % (24-48) Monocytes (%) (Auto) 7 % (0-9) Eosinophils (%) (Auto) 1 % (0-3) Basophils (%) (Auto) 1 % (0-3) Neutrophils # (Auto) 11.0 x10^3/uL (1.8-7.7) Lymphocytes # (Auto) 1.1 x10^3/uL (1.0-4.8) Monocytes # (Auto) 1.0 x10^3/uL (0.0-1.1) Eosinophils # (Auto) 0.1 x10^3/uL (0.0-0.7) Basophils # (Auto) 0.1 x10^3/uL (0.0-0.2) Sodium Level 133 mmol/L (136-145) 140 mmol/L (136-145) 138 mmol/L (136-145) Potassium Level 5.5 mmol/L (3.5-5.1) 4.3 mmol/L (3.5-5.1) 5.5 mmol/L (3.5-5.1) Chloride Level 91 mmol/L (98-107) 98 mmol/L (98-107) 97 mmol/L (98-107) Carbon Dioxide Level 31 mmol/L (21-32) 34 mmol/L (21-32) 33 mmol/L (21-32) Anion Gap 11 (6-14) 8 (6-14) 8 (6-14) Blood Urea Nitrogen 66 mg/dL (8-26) 26 mg/dL (8-26) 34 mg/dL (8-26) Creatinine 12.1 mg/dL (0.7-1.3) 5.2 mg/dL (0.7-1.3) 6.0 mg/dL (0.7-1.3) Estimated GFR (Cockcroft-Gault) 5.1 13.4 11.4 BUN/Creatinine Ratio 5 (6-20) Glucose Level 94 mg/dL (70-99) 129 mg/dL (70-99) 91 mg/dL (70-99) Calcium Level 9.3 mg/dL (8.5-10.1) 9.0 mg/dL (8.5-10.1) 9.9 mg/dL (8.5-10.1) Magnesium Level 2.7 mg/dL (1.8-2.4) 2.1 mg/dL (1.8-2.4) Total Bilirubin 0.4 mg/dL (0.2-1.0) Aspartate Amino Transf (AST/SGOT) 8 U/L (15-37) Alanine Aminotransferase (ALT/SGPT) 6 U/L (16-63) Alkaline Phosphatase 60 U/L (46-116) Total Protein 7.2 g/dL (6.4-8.2) Albumin 2.7 g/dL (3.4-5.0) Albumin/Globulin Ratio 0.6 (1.0-1.7) Troponin I High Sensitivity 15 ng/L (4-75) Laboratory Tests Test 03/31/22 21:40 04/01/22 04:00 Sodium Level 140 mmol/L (136-145) 138 mmol/L (136-145) Potassium Level 4.3 mmol/L (3.5-5.1) 5.5 mmol/L (3.5-5.1) Chloride Level 98 mmol/L (98-107) 97 mmol/L (98-107) Carbon Dioxide Level 34 mmol/L (21-32) 33 mmol/L (21-32) Anion Gap 8 (6-14) 8 (6-14) Blood Urea Nitrogen 26 mg/dL (8-26) 34 mg/dL (8-26) Creatinine 5.2 mg/dL (0.7-1.3) 6.0 mg/dL (0.7-1.3) Estimated GFR (Cockcroft-Gault) 13.4 11.4 Glucose Level 129 mg/dL (70-99) 91 mg/dL (70-99) Calcium Level 9.0 mg/dL (8.5-10.1) 9.9 mg/dL (8.5-10.1) Magnesium Level 2.1 mg/dL (1.8-2.4) Troponin I High Sensitivity 15 ng/L (4-75) Medications Current Medications Levetiracetam 100 ml @ 400 mls/hr 1X ONCE IV Last administered on 03/28/22at 17:47; Start 03/28/22 at 17:30; Stop 03/28/22 at 17:44; Status DC Ondansetron HCl (Zofran) 4 mg PRN Q8HRS PRN IVP NAUSEA/VOMITING; Start 03/28/22 at 18:00; Stop 03/29/22 at 17:59; Status DC Cefazolin Sodium 1 gm/Sodium Chloride 1,000 ml @ 1,000 mls/hr 1X ONCE IRR Last administered on 03/30/22at 12:49; Start 03/30/22 at 06:00; Stop 03/30/22 at 06:59; Status DC Fentanyl Citrate (Fentanyl 2ml Vial) 25 mcg PRN Q5MIN PRN IVP MILD PAIN 1-3; Start 03/30/22 at 06:00; Stop 03/31/22 at 05:59; Status DC Fentanyl Citrate (Fentanyl 2ml Vial) 50 mcg PRN Q5MIN PRN IVP MODERATE PAIN 4-6 Last administered on 03/30/22at 15:55; Start 03/30/22 at 06:00; Stop 03/31/22 at 05:59; Status DC Morphine Sulfate (Morphine Sulfate) 1 mg PRN Q10MIN PRN IVP SEVERE PAIN 7-10; Start 03/30/22 at 06:00; Stop 03/31/22 at 05:59; Status DC Ringer's Solution 1,000 ml @ 30 mls/hr Q24H IV ; Start 03/30/22 at 06:00; Stop 03/30/22 at 17:59; Status DC Hydromorphone HCl (Dilaudid) 0.5 mg PRN Q10MIN PRN IVP SEVERE PAIN 7-10, 2nd CHOICE; Start 03/30/22 at 06:00; Stop 03/31/22 at 05:59; Status DC Prochlorperazine Edisylate (Compazine) 5 mg PACU PRN PRN IVP NAUSEA, MRX1; Start 03/30/22 at 06:00; Stop 03/31/22 at 05:59; Status DC Acetaminophen (Tylenol) 650 mg PRN Q6HRS PRN PO MILD PAIN / TEMP > 100.3'F Last administered on 03/29/22at 19:54; Start 03/29/22 at 19:30 Ceftriaxone Sodium (Rocephin) 1 gm Q24H IVP Last administered on 03/30/22at 11:10; Start 03/30/22 at 08:00; Stop 03/30/22 at 15:55; Status DC Sugammadex Sodium (Bridion) 200 mg 1X ONCE IVP ; Start 03/30/22 at 12:45; Stop 03/30/22 at 12:46; Status DC Bupivacaine HCl/ Epinephrine Bitart (Sensorcain-Epi 0.5%-1:524230 Mpf) 30 ml STK-MED ONCE INJ Last administered on 03/30/22at 12:49; Start 03/30/22 at 12:49; Stop 03/30/22 at 13:07; Status DC Thrombin 20,000 unit STK-MED ONCE TP Last administered on 03/30/22at 12:49; Start 03/30/22 at 12:49; Stop 03/30/22 at 13:07; Status DC Gelatin (Gelfoam Size 100) 1 each STK-MED ONCE TP Last administered on 03/30/22at 12:49; Start 03/30/22 at 12:49; Stop 03/30/22 at 13:07; Status DC Sodium Chloride 1,000 ml @ 30 mls/hr Q24H IV Last administered on 03/30/22at 12:00; Start 03/30/22 at 12:00; Stop 03/31/22 at 17:52; Status DC Piperacillin Sod/ Tazobactam Sod 2.25 gm/Sodium Chloride 50 ml @ 100 mls/hr Q8HRS IV Last administered on 04/01/22at 06:19; Start 03/30/22 at 22:00; Stop 04/01/22 at 13:33; Status DC Polyethylene Glycol (miraLAX PACKET) 17 gm DAILY PO Last administered on 03/31/22at 08:45; Start 03/31/22 at 09:00 Cefazolin Sodium (Ancef) 2 gm STK-MED ONCE IVP ; Start 03/30/22 at 10:00; Stop 03/31/22 at 08:37; Status DC Gelatin (Gelfoam Size 100) 1 each STK-MED ONCE .ROUTE ; Start 03/30/22 at 07:41; Stop 03/31/22 at 09:33; Status DC Bupivacaine HCl/ Epinephrine Bitart (Sensorcain-Epi 0.5% Kit) 30 ml STK-MED ONCE .ROUTE ; Start 03/30/22 at 07:41; Stop 03/31/22 at 09:33; Status DC Cellulose (Surgicel Hemostat 4x8) 1 each STK-MED ONCE .ROUTE ; Start 03/30/22 at 07:41; Stop 03/31/22 at 09:33; Status DC Thrombin 20,000 unit STK-MED ONCE TP ; Start 03/30/22 at 07:42; Stop 03/31/22 at 09:33; Status DC Propofol (Diprivan) 200 mg STK-MED ONCE IV ; Start 03/30/22 at 08:48; Stop 03/31/22 at 09:37; Status DC Lidocaine HCl (Lidocaine Pf 2% Vial) 5 ml STK-MED ONCE .ROUTE ; Start 03/30/22 at 08:48; Stop 03/31/22 at 09:37; Status DC Ondansetron HCl (Zofran) 4 mg STK-MED ONCE .ROUTE ; Start 03/30/22 at 08:48; Stop 03/31/22 at 09:37; Status DC Glycopyrrolate (Robinul) 1 mg STK-MED ONCE .ROUTE ; Start 03/30/22 at 08:48; Stop 03/31/22 at 09:37; Status DC Dexamethasone Sodium Phosphate (Decadron) 4 mg STK-MED ONCE .ROUTE ; Start 03/30/22 at 08:48; Stop 03/31/22 at 09:37; Status DC Sevoflurane (Ultane) 60 ml STK-MED ONCE IH ; Start 03/30/22 at 08:48; Stop 03/31/22 at 09:37; Status DC Fentanyl Citrate (Fentanyl 2ml Vial) 100 mcg STK-MED ONCE .ROUTE ; Start 03/30/22 at 08:48; Stop 03/31/22 at 09:37; Status DC Rocuronium [place] (Zemuron) 50 mg STK-MED ONCE .ROUTE ; Start 03/30/22 at 08:48; Stop 03/31/22 at 09:37; Status DC Neostigmine [place] (Neostigmine Methylsulfate) 5 mg STK-MED ONCE .ROUTE ; Start 03/30/22 at 08:48; Stop 03/31/22 at 09:37; Status DC Phenylephrine HCl (Fam-Synephrine Inj) 10 mg STK-MED ONCE .ROUTE ; Start 03/30/22 at 08:54; Stop 03/31/22 at 09:37; Status DC Phenylephrine HCl (PHENYLEPHRINE in 0.9% NACL PF) 1 mg STK-MED ONCE IV ; Start 03/30/22 at 09:49; Stop 03/31/22 at 09:38; Status DC Cefazolin Sodium (Ancef) 1 gm STK-MED ONCE IVP ; Start 03/30/22 at 09:51; Stop 03/31/22 at 09:38; Status DC Vasopressin (Vasostrict) 20 unit STK-MED ONCE .ROUTE ; Start 03/30/22 at 10:28; Stop 03/31/22 at 09:39; Status DC Fentanyl Citrate (Fentanyl 2ml Vial) 100 mcg STK-MED ONCE .ROUTE ; Start 03/30/22 at 10:48; Stop 03/31/22 at 09:39; Status DC Rocuronium [place] (Zemuron) 50 mg STK-MED ONCE .ROUTE ; Start 03/30/22 at 10:57; Stop 03/31/22 at 09:39; Status DC Fentanyl Citrate (Fentanyl 2ml Vial) 100 mcg STK-MED ONCE .ROUTE ; Start 03/30/22 at 14:51; Stop 03/31/22 at 09:40; Status DC Sodium Chloride 1,000 ml @ 1,000 mls/hr Q1H PRN IV hypotension; Start 03/31/22 at 13:00; Stop 03/31/22 at 18:59; Status DC Sodium Chloride 1,000 ml @ 400 mls/hr Q2H30M PRN IV PATENCY; Start 03/31/22 at 13:00; Stop 04/01/22 at 00:59; Status DC Lidocaine HCl (Xylocaine-Mpf 1% 2ml Vial) 2 ml 1X PRN PRN INJ FOR DIALYSIS; Start 03/31/22 at 13:00; Stop 04/01/22 at 12:59; Status DC Info (PHARMACY MONITORING -- do not chart) 1 each PRN DAILY PRN MC SEE COMMENTS; Start 03/31/22 at 13:00; Status UNV Info (PHARMACY MONITORING -- do not chart) 1 each PRN DAILY PRN MC SEE COMMENTS; Start 03/31/22 at 13:00; Status Cancel Sodium Polystyrene Sulfonate (Kayexalate) 15 gm 1X ONCE PO ; Start 03/31/22 at 14:30; Stop 03/31/22 at 14:31; Status DC Sodium Polystyrene Sulfonate (Kayexalate) 15 gm 1X ONCE PO ; Start 03/31/22 at 14:45; Stop 03/31/22 at 16:32; Status DC Bisacodyl (Dulcolax Tab) 5 mg PRN DAILY PRN PO CONSTIPATION; Start 03/31/22 at 16:45 Sodium Chloride 1,000 ml @ 1,000 mls/hr Q1H PRN IV hypotension; Start 04/01/22 at 07:30; Stop 04/01/22 at 13:29; Status DC Albumin Human 200 ml @ 200 mls/hr 1X PRN PRN IV Hypotension; Start 04/01/22 at 07:30; Stop 04/01/22 at 13:29; Status DC Sodium Chloride 1,000 ml @ 400 mls/hr Q2H30M PRN IV PATENCY; Start 04/01/22 at 07:30; Stop 04/01/22 at 19:29 Info (PHARMACY MONITORING -- do not chart) 1 each PRN DAILY PRN MC SEE COMMENTS; Start 04/01/22 at 07:30; Status UNV Info (PHARMACY MONITORING -- do not chart) 1 each PRN DAILY PRN MC SEE COMMENTS; Start 04/01/22 at 07:30 Amoxicillin/ Clavulanate Potassium (Augmentin 500/ 125mg) 1 tab DAILY PO Last administered on 04/01/22at 14:02; Start 04/01/22 at 14:00 Active Scripts Active Reported Oxycodone Hcl 5 Mg Capsule 5 Mg PO PRN Q6HRS PRN Miralax (Polyethylene Glycol 3350) 17 Gm Powd.pack 1 Packet PO DAILY 2 Days dissolve in water Combivent Respimat Inhal (Ipratropium/Albuterol Sulfate) 4 Gm Aer.w.adap 2 Inh IH QID Albuterol Sulfate Neb Soln (Albuterol Sulfate) 0.63 Mg/3 Ml Vial.neb 1 Vial NEB TID Vitals/I & O Vital Sign - Last 24 Hours 03/31/22 03/31/22 03/31/22 03/31/22 15:00 16:00 16:00 17:00 Temp 98.9 98.9 Pulse 82 80 91 Resp 17 17 17 B/P (MAP) 144/62 (89) 142/63 (89) 141/71 (94) Pulse Ox 100 100 96 O2 Delivery Nasal Cannula Nasal Cannula Nasal Cannula Nasal Cannula O2 Flow Rate 3.0 3.0 3.0 3.0 03/31/22 03/31/22 03/31/22 03/31/22 18:00 19:00 19:37 20:00 Temp 100.0 100.0 Pulse 93 84 86 Resp 17 26 25 B/P (MAP) 141/65 (90) 116/54 (74) 122/60 (80) Pulse Ox 96 90 100 O2 Delivery Nasal Cannula Nasal Cannula Nasal Cannula Nasal Cannula O2 Flow Rate 3.0 3.0 3.0 3.0 03/31/22 03/31/22 03/31/22 04/01/22 21:00 22:00 23:00 00:00 Pulse 92 84 82 Resp 23 21 20 B/P (MAP) 106/54 (71) 104/50 (68) 98/56 (70) Pulse Ox 97 97 99 O2 Delivery Nasal Cannula Nasal Cannula Nasal Cannula Nasal Cannula O2 Flow Rate 3.0 4.0 4.0 3.0 04/01/22 04/01/22 04/01/22 04/01/22 00:00 01:00 02:00 03:00 Temp 99.8 99.8 Pulse 96 82 76 90 Resp 24 26 18 36 B/P (MAP) 102/67 (79) 108/64 (79) 108/65 (79) 119/76 (90) Pulse Ox 97 100 99 99 O2 Delivery Nasal Cannula Nasal Cannula Nasal Cannula Nasal Cannula O2 Flow Rate 4.0 4.0 4.0 4.0 04/01/22 04/01/22 04/01/22 04/01/22 04:00 04:00 05:00 06:00 Temp 99.3 99.3 Pulse 74 64 74 Resp 19 16 16 B/P (MAP) 101/62 (75) 106/66 (79) 112/71 (85) Pulse Ox 100 100 100 O2 Delivery Nasal Cannula Nasal Cannula Nasal Cannula Nasal Cannula O2 Flow Rate 4.0 4.0 4.0 4.0 04/01/22 04/01/22 04/01/22 04/01/22 07:00 08:00 08:00 09:00 Temp 98.6 98.6 Pulse 70 71 75 Resp 18 16 16 B/P (MAP) 98/71 (80) 112/69 (83) 124/75 (91) Pulse Ox 98 99 98 O2 Delivery Nasal Cannula Nasal Cannula Nasal Cannula Nasal Cannula O2 Flow Rate 4.0 4.0 4.0 4.0 04/01/22 04/01/22 04/01/22 04/01/22 10:00 11:00 12:00 12:00 Temp 99.2 99.2 Pulse 74 83 93 Resp 18 16 20 B/P (MAP) 118/68 (85) 119/68 (85) 123/75 (91) Pulse Ox 98 98 99 O2 Delivery Nasal Cannula Nasal Cannula Nasal Cannula Nasal Cannula O2 Flow Rate 4.0 4.0 4.0 4.0 04/01/22 04/01/22 13:00 14:00 Pulse 78 86 Resp 16 18 B/P (MAP) 107/64 (78) 116/68 (84) Pulse Ox 98 98 O2 Delivery Nasal Cannula Nasal Cannula O2 Flow Rate 4.0 4.0 Intake and Output 03/31/22 03/31/22 04/01/22 15:00 23:00 07:00 Intake Total 1150 ml 830 ml 400 ml Balance 1150 ml 830 ml 400 ml Justifications for Admission Other Justification RAFAEL MAHONEY MD April 01, 2022 14:25
--- NOTE | 2022-04-01 18:18 | PATHOLOGY ---
[facility] Accession Number: [id number] . 01 Material submitted: . head - SUBDURAL HEMATOMA . 01 Clinical history: . SUBDURAL HEMATOMA CRANIOTOMY, EVACUATION OF SUBDURAL HEAMATOMA . 02 Diagnosis: Subdural hematoma, evacuation: - Blood and focal fragments of calcified bone. - Negative for malignancy. (MLK/db; 04/01/2022) LBQ 04/01/2022 1234 Local . 02 Electronically signed: . Jesús Haas MD, Pathologist NPI- [id number] . 01 Gross description: . The specimen is received in formalin, labeled "Lambert, Juan Pablo, subdural hematoma" and consists of 2 mata-brown, soft, amorphous and gelatinous tissues (2.8 x 1.7 x 0.2 cm in aggregate) which are filtered and submitted in toto in one cassette.(PICAYUNE; 03/31/2022) DKA/DKA 03/31/2022 1013 Local . 02 Pathologist provided ICD-10: I62.00 . 02 CPT . 387526 Specimen Comment: A courtesy copy of this report has been sent to [phone], [phone] Specimen Comment: [phone], Specimen Comment: Report sent to , DR RUSSELL / DR LEON Performed at: 01 [facility] [address] [id number] MD Amrit Raines MD Phone: [phone] Performed at: 02 [facility] [address] [id number] MD Joseph Neville MD Phone: [phone]
[2022-04-02 03:15] VITALS: BP 108/63
[2022-04-02 04:20] LABS: BASO % 1 % (0-3); EOS # 0.3 x10^3/uL (0.0-0.7); EOS % 4 % (0-3); HEMATOCRIT 27.6 % (39.0-53.0); HEMOGLOBIN 8.8 g/dL (13.0-17.5); LYMPH # 0.8 x10^3/uL (1.0-4.8); LYMPH % 12 % (24-48); MEAN CORPUSCULAR HEMOGLOBIN 28 pg (25-35); MEAN CORPUSCULAR HGB CONC 32 g/dL (31-37); MEAN CORPUSCULAR VOLUME 88 fL (79-100); MONO # 0.8 x10^3/uL (0.0-1.1); MONO % 12 % (0-9); NEUT # 4.8 x10^3/uL (1.8-7.7); NEUT % 71 % (31-73); PLATELET COUNT 253 x10^3/uL (140-400); RED BLOOD COUNT 3.16 x10^6/uL (4.30-5.70); RED CELL DISTRIBUTION WIDTH 13.6 % (11.5-14.5); WHITE BLOOD COUNT 6.8 x10^3/uL (4.0-11.0)
[2022-04-02 08:00] VITALS: BP 134/76
[2022-04-02] MEDS: AMOXICILLIN/K CLAV 500/125MG TABLET. PO SCH (08:53)
[2022-04-02] MEDS: POLYETHYLENE GLYCOL 3350 17 GM PACKET. PO SCH (09:00)
--- NOTE | 2022-04-02 10:30 | PDOC ---
Provider Note Date of Service: DATE: 04/02/22 TIME: 10:27 Provider Note ok to dc from NS standpoint will arrange for follow up CT head and staple removal D/W RN Justifications for Admission Other Justification RAFAEL MAHONEY MD April 02, 2022 10:30
[2022-04-02 12:00] VITALS: BP 112/68
[2022-04-02] MEDS ORDERED: AMOX1TAB10 PO (12:10)
[2022-04-02] MEDS ORDERED: OXYC5CAP PO (12:10)
--- NOTE | 2022-04-02 12:11 | PDOC ---
Infectious Disease Note Subjective Subjective Patient without complaints Denies any pain Denies any fever, chills, nausea, vomiting, diarrhea, abdominal pain Awaiting dialysis session later today Father and mother at bedside Discussed with RN Vital Sign Vital Signs Vital Signs Date Time Temp Pulse Resp B/P (MAP) Pulse Ox O2 Delivery O2 Flow Rate FiO2 04/02/22 12:00 98.5 88 22 112/68 (83) 95 4.0 98.5 04/02/22 08:00 Nasal Cannula Physical Exam PHYSICAL EXAM GENERAL: Alert, oriented x 3, lying in bed comfortably, in no acute distress. HEENT: Postoperative dressing with drain in place, dry and intact, pupils equal reactive, no thrush, oral mucosa moist NECK: Supple. LUNGS: Clear bilaterally. No wheezing. HEART: S1, S2. No gallops or murmurs. ABDOMEN: Soft, nontender, nondistended. No rebound or guarding. EXTREMITIES: No edema or cyanosis no Clements in place. MUSCULOSKELETAL: No joint swelling. No decrease in range of motion. CENTRAL NERVOUS SYSTEM: Alert, oriented x 3, grossly nonfocal. PSYCHIATRIC: Cooperative, calm. LINES: looks clean. Left upper extremity AV fistula without complication Labs Lab Laboratory Tests Test 04/02/22 04:00 White Blood Count 6.8 x10^3/uL (4.0-11.0) Red Blood Count 3.16 x10^6/uL (4.30-5.70) Hemoglobin 8.8 g/dL (13.0-17.5) Hematocrit 27.6 % (39.0-53.0) Mean Corpuscular Volume 88 fL (79-100) Mean Corpuscular Hemoglobin 28 pg (25-35) Mean Corpuscular Hemoglobin Concent 32 g/dL (31-37) Red Cell Distribution Width 13.6 % (11.5-14.5) Platelet Count 253 x10^3/uL (140-400) Neutrophils (%) (Auto) 71 % (31-73) Lymphocytes (%) (Auto) 12 % (24-48) Monocytes (%) (Auto) 12 % (0-9) Eosinophils (%) (Auto) 4 % (0-3) Basophils (%) (Auto) 1 % (0-3) Neutrophils # (Auto) 4.8 x10^3/uL (1.8-7.7) Lymphocytes # (Auto) 0.8 x10^3/uL (1.0-4.8) Monocytes # (Auto) 0.8 x10^3/uL (0.0-1.1) Eosinophils # (Auto) 0.3 x10^3/uL (0.0-0.7) Basophils # (Auto) 0.0 x10^3/uL (0.0-0.2) Objective Assessment Fever could be from subdural hematoma,pattern improved History of fall Subdural hematoma status post craniectomy March 30 Hypertension End-stage renal disease on hemodialysis Anxiety and depression History of asthma Pulmonary infiltrates Plan Plan of Care po augmentin Monitor labs and cultures Continue wound care as directed Continue supportive care ROBERT LOPEZ MD April 02, 2022 12:11
--- NOTE | 2022-04-02 12:12 | SNU/HH DC ---
DISCHARGE ORDERS DISCHARGE INFORMATION: FINAL DIAGNOSIS Problems Medical Problems: (1) Subdural hematoma Status: Acute CONDITION ON DISCHARGE: Stable CODE STATUS: Code Status: Full HALF-WAY: SNF STAY <30 DAYS: No HOSPICE: HOSPICE: No HOSPICE EVAL & TREAT: No LTAC: ADMIT TO LTAC: No POST DISCHARGE ORDERS: DIET AFTER DISCHARGE: Renal DISCHARGE MEDICATIONS: Home Meds Active Scripts Amoxicillin/Potassium Clav (AMOX TR-K CLV 500-125 MG TAB) 1 Each Tablet, 1 TAB PO DAILY for . for 7 Days, #14 TAB Prov:ARIEL BARRERA III DO 04/02/22 Oxycodone Hcl (OXYCODONE HCL) 5 Mg Capsule, 5 MG PO PRN Q6HRS PRN for PAIN for 7 Days, #14 TAB 0 Refills Prov:AREIL BARRERA K III DO 04/02/22 Reported Medications Polyethylene Glycol 3350 (MIRALAX) 17 Gm Powd.pack, 1 PACKET PO DAILY for constipation for 2 Days, #2 PACKET 0 Refills dissolve in water 03/28/22 Ipratropium/Albuterol Sulfate (COMBIVENT RESPIMAT INHAL) 4 Gm Aer.w.adap, 2 INH IH QID for asthma, EACH 03/28/22 Albuterol Sulfate (ALBUTEROL SULFATE NEB SOLN) 0.63 Mg/3 Ml Vial.neb, 1 VIAL NEB TID for asthma, #225 ML 03/28/22 ARIEL BARRERA K III DO April 02, 2022 12:12
--- NOTE | 2022-04-02 12:47 | CARD ---
MR#: [id number] Date of Study: 04/01/2022 Ordering Physician: JULITO PARRA, Referring Physician: JULITO PARRA Tech: Zaida Burogs [facility] APPROVED REPORT EXAM: Two-dimensional and M-mode echocardiogram with Doppler and color Doppler. Other Information Quality : ExcellentHR: 83bpm Rhythm : NSR INDICATION Syncope 2D DIMENSIONS RVDd3.2 (2.9-3.5cm)Left Atrium(2D)2.8 (1.6-4.0cm) IVSd0.8 (0.7-1.1cm)Aortic Root(2D)3.8 (2.0-3.7cm) LVDd4.9 (3.9-5.9cm)LVOT Diameter2.3 (1.8-2.4cm) PWd1.1 (0.7-1.1cm)LVDs2.9 (2.5-4.0cm) FS (%) 41.9 %SV83.1 ml Aortic Valve AoV Peak Tanner.167.5cm/Jaime Peak GR.15.4mmHg LVOT Peak Tanner.115.4cm/sAVA (VMAX)2.94cm2 Mitral Valve MV E Esyokfol40.0cm/sMV DECEL [id number] MV A Uexmegaw99.5cm/sE/A Ratio1.1 Pulmonary Valve PV Peak Nlayqxna205.5cm/s Tricuspid Valve TR P. Uhaywgyw765mu/sRAP [id number] TR Peak Gr.[id number] LEFT VENTRICLE The left ventricle is normal size. There is normal left ventricular wall thickness. The left ventricu lar systolic function is low normal. LV ejection fraction is estimated at 50%. No regional wall motio n abnormalities noted. The left ventricular diastolic function is normal. No left ventricle thrombus noted on this study. There is no ventricular septal defect visualized. There is no left ventricular a neurysm. There is no mass noted in the left ventricle. RIGHT VENTRICLE The right ventricle is normal size. There is normal right ventricular wall thickness. The right ventr icular systolic function is normal. ATRIA The left atrium size is normal. The right atrium size is normal. The interatrial septum is intact wit h no evidence for an atrial septal defect or patent foramen ovale as noted on 2-D or Doppler imaging. AORTIC VALVE The aortic valve is trileaflet. Doppler and Color Flow revealed no significant aortic regurgitation. There is no aortic valvular stenosis. There is no aortic valvular vegetation. MITRAL VALVE The mitral valve is normal in structure and function. There is no evidence of mitral valve prolapse. There is no mitral valve stenosis. There is no mitral valve regurgitation noted. TRICUSPID VALVE The tricuspid valve is normal in structure and function. Doppler and Color Flow revealed mild tricusp id regurgitation. The pulmonary artery systolic pressure is estimated at 30-35 mmHg. There is no tric uspid valve prolapse or vegetation. There is no tricuspid valve stenosis. PULMONIC VALVE The pulmonary valve is normal in structure and function. There is no pulmonic valvular regurgitation. There is no pulmonic valvular stenosis. GREAT VESSELS The aortic root is normal in size. The ascending aorta is normal in size. The pulmonary artery is nor mal. The IVC is normal in size and collapses >50% with inspiration. PERICARDIAL EFFUSION There is no pleural effusion. The pericardium appears normal. Critical Notification Critical Value: No <Conclusion> The left ventricle is normal size. The left ventricular systolic function is low normal. LV ejection fraction is estimated at 50%. Doppler and Color Flow revealed no significant aortic regurgitation. There is no aortic valvular stenosis. There is no mitral valve regurgitation noted. Doppler and Color Flow revealed mild tricuspid regurgitation. The pulmonary artery systolic pressure is estimated at 30-35 mmHg. Signed by : Lonnie Blas MD Electronically Approved : 04/02/2022 12:47:29
== END 2022-04-02 14:10 | DRG 25 ==
LOC: ER 16:14 → 1 WEST ICU 17:30
PROVIDERS: ADMIT Internal Medicine; ATTEND Internal Medicine
PROC: 00C40ZZ Extirpation of Matter from Intracranial Subdural Space, Open Approach (ICD-10-PCS; principal; 2022-03-30 11:30)
PROC: 5A1D70Z Performance of Urinary Filtration, Intermittent, Less than 6 Hours Per Day (ICD-10-PCS; 2022-03-31)
PROC: 5A1D70Z Performance of Urinary Filtration, Intermittent, Less than 6 Hours Per Day (ICD-10-PCS; 2022-04-01)
DX: I62.02 Nontraumatic subacute subdural hemorrhage (principal); N18.6 End stage renal disease; I12.0 Hypertensive chronic kidney disease with stage 5 chronic kidney disease or end stage renal disease; Q61.3 Polycystic kidney, unspecified; I62.03 Nontraumatic chronic subdural hemorrhage; D63.8 Anemia in other chronic diseases classified elsewhere; E87.5 Hyperkalemia; F17.210 Nicotine dependence, cigarettes, uncomplicated; F25.9 Schizoaffective disorder, unspecified; F32.A Depression, unspecified; F41.9 Anxiety disorder, unspecified; G60.9 Hereditary and idiopathic neuropathy, unspecified; I49.3 Ventricular premature depolarization; J45.909 Unspecified asthma, uncomplicated; M19.90 Unspecified osteoarthritis, unspecified site; Z83.3 Family history of diabetes mellitus; Z99.2 Dependence on renal dialysis; W18.39XA Other fall on same level, initial encounter; Y93.89 Activity, other specified; Y92.89 Other specified places as the place of occurrence of the external cause; Y99.8 Other external cause status; Z88.8 Allergy status to other drugs, medicaments and biological substances
CPT/HCPCS: 36415; 70450; 71045; 80048; 80053; 82607; 83036; 83735; 84100; 84165; 84443; 84484; 85025; 85610; 85651; 85730; 86038; 87426; 88304; 93005; 93306; 96365; A4314; A4364; A4452; A4930; A6255; A6258; C1713; C1763; J0690; J0696; J1100; J2370; J2405; J2543; J2704; J2710; J3010; J3490; J7030; U0003; 92610-GN; 97116-GP; 97535-GO; 99285-25; C8929; G0378

== ENCOUNTER → 2022-04-26 | Outpatient (CLI) | payer MEDICAID ==
[2022-04-02 12:00] VITALS: BP 112/68
[~2022-04-26] MED LIST: ALBU0.63 NEB; AMOX1TAB10 PO; IPRA4AER IH; OXYC5CAP PO; POLY17PO29 PO
--- NOTE | 2022-04-26 16:00 | RAD ---
CT HEAD/BRAIN WO History: Reason: f/u SDH / Spl. Instructions: / History: Comparison: April 12, 2022 Technique: Noncontrast CT imaging was performed of the head. Exposure: One or more of the following individualized dose reduction techniques were utilized for thi s examination: 1. Automated exposure control 2. Adjustment of the mA and/or kV according to patient size 3. Use of iterative reconstruction technique. Findings: Postoperative changes right frontal craniotomy. Decreased right cerebral convexity subdural hematoma. Mild thin hyperdense component is decreased compared to prior. Increased left frontal subdural hematoma with increased hyperdense component compared to prior. Maxim al thickness of the hyperdense component measures 2.4 cm compared to 2.0 cm a similar location. Incre ased mass effect on the adjacent frontal lobe no midline shift. Decreased mass effect on the left lat eral ventricle. Imaged orbits are unremarkable. Imaged paranasal sinuses are clear. Minimal right mastoid fluid. No a cute calvarial fracture. Impression: 1. Mildly increased acute on chronic left subdural hematoma with increased mass effect. 2. Decreased right cerebral convexity subdural hematoma. FOR INTERNAL CODING PURPOSES Critical result: Findings discussed with ZEE CALDERON MD at 04/26/2022 3:56 PM. RESULT CODE: (C) Electronically signed by: Sandro Moran DO (04/26/2022 3:58 PM) [facility]
== END ==
LOC: CT 13:13
PROVIDERS: ATTEND Internal Medicine
DX: S06.5X9D Traumatic subdural hemorrhage with loss of consciousness of unspecified duration, subsequent encounter (principal); X58.XXXD Exposure to other specified factors, subsequent encounter
CPT/HCPCS: 70450